=== PATIENT | female | born 1990 | race Caucasian/White ===

== ENCOUNTER 2023-07-14 16:45 | Emergency (ER) | payer OTHER, SELFPAY ==
[2023-07-14 16:58] VITALS: BP 94/58; PULSE 84; RESP 16; TEMP 37.2; O2SAT 100; BMI 22.5
[2023-07-14 17:15] LABS: Bilirubin Urine SMALL (NEGATIVE); Blood Urine LARGE (NEGATIVE); Color Urine YELLOW (YELLOW); Glucose Urine UA NEGATIVE (NEGATIVE); Ketones Urine TRACE mg/dL (NEGATIVE); Leukocyte Esterase Urine SMALL (NEGATIVE); Nitrite Urine NEGATIVE (NEGATIVE); Protein Urine >=300 mg/dL (NEG/TRACE); Specific Gravity Urine >=1.030 (1.005-1.025)
[2023-07-14 17:17] LABS: Clarity Urine SLIGHTLY CLOUDY (CLEAR); Urine Microscopic Indicated YES
--- NOTE | 2023-07-14 17:20 | ED_ITS ---
HPI - Female Genitourinary General Chief complaint: Urogenital-Female Stated complaint: Vaginal Bleed Time Seen by Provider: 07/14/23 16:54 Source: patient Mode of arrival: walk-in Limitations: no limitations History of Present Illness HPI Narrative: patient is a 33-year-old female who presents to the emergency department with her significant other for the evaluation of vaginal pain that began yesterday. She reports blood with wiping after urination. She states she has urinary urgency but has not had any specific dysuria or abdominal pain. She denies any recent rough intercourse or use of toys that may have injured her. She has had no fevers or vomiting. She has had a previous hysterectomy and has not noted any vaginal discharge or lesions of the vaginal area. Related Data Home Medications Medication Instructions Recorded Confirmed buspirone 15 mg tablet 15 mg PO BID 07/14/23 07/14/23 escitalopram oxalate 5 mg tablet 5 mg PO DAILY 07/14/23 07/14/23 estradiol 0.5 mg tablet 0.5 mg PO DAILY 07/14/23 07/14/23 multivitamin 1 tab PO DAILY 07/14/23 07/14/23 omeprazole 20 mg capsule,delayed 20 mg PO DAILY 07/14/23 07/14/23 release Previous Rx's Medication Instructions Recorded cephalexin 500 mg capsule 500 mg PO Q8H 7 days #21 caps 07/14/23 ondansetron 4 mg disintegrating 4 mg PO Q6H PRN nausea and 07/14/23 tablet vomiting #12 tabs phenazopyridine 200 mg tablet 200 mg PO Q8H 2 days #6 tabs 07/14/23 (Pyridium) Allergies Allergy/AdvReac Type Severity Reaction Status Date / Time fentanyl AdvReac Severe Verified 07/14/23 16:55 hydromorphone [From Dilaudid] AdvReac Severe Verified 07/14/23 16:55 naproxen AdvReac Severe Verified 07/14/23 16:55 NSAIDS (Non-Steroidal AdvReac Severe gastric Verified 07/14/23 16:55 Anti-Inflamma ulcers Review of Systems ROS Constitutional Denies: fever or chills Ears, nose, mouth, and throat Denies: throat pain Respiratory Denies: shortness of breath Gastrointestinal Denies: abdominal pain, nausea or vomiting Genitourinary Reports: urinary urgency and vaginal bleeding Musculoskeletal Denies: back pain Integumentary/Breast Denies: rash PFSH [facility] Surgical History (Updated 07/14/23 @ 17:04 by Asa Cain) Social History Smoking status: Never smoker Exam Narrative Exam Narrative: Gen.: Awake, alert, in no distress Head: Normocephalic, atraumatic ENT: Moist mucous membranes Respiratory: No respiratory distress, lungs clear bilaterally Cardio: Regular rate and rhythm Gastrointestinal: Abdomen is soft, nondistended and nontender to palpation; vaginal exam with no swelling of the labia, no external lesions noted and no vaginal discharge noted. Patient was examined with Kathy Benitez RN at bedside throughout the duration of the exam. no adnexal tenderness Extremities: Moves extremities equally Psych: Normal mood and affect Neuro: No focal neuro deficit Skin: Warm, dry, intact Constitutional Vital Signs, click to edit/add: Last Vital Signs Temp 99 F 07/14/23 16:58 Pulse 84 07/14/23 16:58 Resp 16 07/14/23 16:58 BP 94/58 07/14/23 16:58 Pulse Ox 100 07/14/23 16:58 O2 Del Method Room Air 07/14/23 16:58 Course Vital Signs Vital signs: Vital Signs Temperature 99 F 07/14/23 16:58 Pulse Rate 84 07/14/23 16:58 Respiratory Rate 16 07/14/23 16:58 Blood Pressure 94/58 07/14/23 16:58 Pulse Oximetry 100 07/14/23 16:58 Oxygen Delivery Method Room Air 07/14/23 16:58 Temperature 99 F 07/14/23 16:58 Pulse Rate 84 07/14/23 16:58 Respiratory Rate 16 07/14/23 16:58 Blood Pressure 94/58 07/14/23 16:58 Pulse Oximetry 100 07/14/23 16:58 Oxygen Delivery Method Room Air 07/14/23 16:58 MDM - Female Genitourinary MDM Narrative Medical decision making narrative: vaginal exam is unremarkable, urine specimen shows urinary tract infection as expected. Patient will be started on Keflex, Pyridium, Zofran. Follow-up PCP and return to the Emergency Room if symptoms change or worsen. Medical Records Attestation: I reviewed the patient's medical records. Lab Data Attestation: I reviewed the patient's lab results. Labs: Lab Results 07/14/23 Range/Units 17:05 Urine Color Yellow (YELLOW) Urine Clarity Slightly cloudy A (CLEAR) Urine pH 6.0 (5.0-9.0) Ur Specific [place] >=1.030 A (1.005-1.025) Urine Protein >=300 A (NEG/TRACE) mg/dL Urine Glucose (UA) Negative (NEGATIVE) mg/dL Urine Ketones Trace A (NEGATIVE) mg/dL Urine Occult Blood Large A (NEGATIVE) Urine Nitrite Negative (NEGATIVE) Urine Bilirubin Small A (NEGATIVE) Urine Urobilinogen 4.0 A (0.2-1.0) EU/dL Ur Leukocyte Esterase Small A (NEGATIVE) Urine RBC 2-5 A (0-2) #/HPF Urine WBC 75-100 A (NONE SEEN) #/HPF Ur Squamous Epith Cells None seen (NONE/RARE) #/LPF Urine Crystals None seen (None Seen) #/HPF Urine Bacteria Small A (NONE SEEN) #/HPF Urine Casts None seen (NONE SEEN) #/LPF Urine Mucus None seen (NONE SEEN) Ur Culture Indicated? Yes Discharge Plan Discharge Chief Complaint: Urogenital-Female Clinical Impression: Urinary tract infection Patient Disposition: Home, Self-Care Time of Disposition Decision: 17:44 Condition: Good Prescriptions / Home Meds: New cephalexin 500 mg capsule 500 mg PO Q8H 7 Days Qty: 21 0RF phenazopyridine [Pyridium] 200 mg tablet 200 mg PO Q8H 2 Days Qty: 6 0RF ondansetron 4 mg tablet,disintegrating 4 mg PO Q6H PRN (Reason: nausea and vomiting) Qty: 12 0RF No Action escitalopram oxalate 5 mg tablet 5 mg PO DAILY estradiol 0.5 mg tablet 0.5 mg PO DAILY multivitamin Tablet 1 tab PO DAILY omeprazole 20 mg capsule,delayed release(DR/EC) 20 mg PO DAILY buspirone 15 mg tablet 15 mg PO BID Instructions: Urinary Tract Infection in Women (ED) Stand Alone Forms: Portal Instructions Referrals: [facility] [Primary Care Provider] - 1 week
[2023-07-14 17:21] LABS: Bacteria Urine SMALL #/HPF (NONE SEEN); Cast Seen? NONE SEEN #/LPF (NONE SEEN); Crystals Seen? None Seen #/HPF (None Seen); Mucus Urine NONE SEEN (NONE SEEN); Squamous Epithelial Cell Urine NONE SEEN #/LPF (NONE/RARE); Urine Culture Indicated YES; WBC Urine 75-100 #/HPF (NONE SEEN)
--- NOTE | 2023-07-14 17:21 | PC.NURSE ---
ELLIE Chavez assisted physician physical therapist assistant with vaginal exam. no leisons, swelling, or abnormalities seen. normal exam, no need for cultures per physician physical therapist assistant.
== END 2023-07-14 18:03 | disposition home or self-care (01) ==
PROVIDERS: Physician Assistant; Emergency Provider Emergency Medicine
DX: N39.0 Urinary tract infection, site not specified (principal); Z90.710 Acquired absence of both cervix and uterus; Z79.899 Other long term (current) drug therapy
CPT/HCPCS: 81001; 87086; 87150; 87186; 99283

== ENCOUNTER 2024-03-02 21:14 | Emergency (ER) | payer OTHER, SELFPAY ==
[2024-03-02 21:46] VITALS: BP 113/79; PULSE 79; TEMP 36.9; O2SAT 100; BMI 22.6
--- NOTE | 2024-03-02 22:30 | ED.SKABFB1 ---
HPI - Skin/Abscess/Foreign Bdy General Chief complaint: Skin/Abscess/Foreign Body Stated complaint: LUMP Time Seen by Provider: 03/02/24 22:26 Source: patient and family Mode of arrival: walk-in History of Present Illness HPI narrative: This 33-year-old female who is status post hysterectomy presents for evaluation of a tender lump in her left axilla. She states she noticed it yesterday. She has not is any warm compresses. She has been taking Tylenol for pain. She has not had a fever. She has not noticed any breast lumps. She does shave her armpits. She has been using Tylenol for pain. Her mother states that she thinks she has an infection because she has been very tired. She denies the possibility of because she has had a hysterectomy. No additional injuries or complaints. Related Data Home Medications ?Medication ?Instructions ?Recorded ?Confirmed buspirone 15 mg tablet 15 mg PO BID 07/14/23 07/14/23 escitalopram oxalate 5 mg tablet 5 mg PO DAILY 07/14/23 07/14/23 estradiol 0.5 mg tablet 0.5 mg PO DAILY 07/14/23 07/14/23 multivitamin 1 tab PO DAILY 07/14/23 07/14/23 omeprazole 20 mg capsule,delayed 20 mg PO DAILY 07/14/23 07/14/23 release Previous Rx's ?Medication ?Instructions ?Recorded cephalexin 500 mg capsule 500 mg PO Q8H 7 days #21 caps 07/14/23 ondansetron 4 mg disintegrating 4 mg PO Q6H PRN nausea and 07/14/23 tablet vomiting #12 tabs phenazopyridine 200 mg tablet 200 mg PO Q8H 2 days #6 tabs 07/14/23 (Pyridium) Allergies Allergy/AdvReac Type Severity Reaction Status Date / Time fentanyl AdvReac Severe Verified 07/14/23 16:55 hydromorphone [From Dilaudid] AdvReac Severe Verified 07/14/23 16:55 naproxen AdvReac Severe Verified 07/14/23 16:55 NSAIDS (Non-Steroidal AdvReac Severe gastric Verified 07/14/23 16:55 Anti-Inflamma ulcers Review of Systems ROS Status of ROS 10 or more systems reviewed and unremarkable except as noted in history and below [facility] Surgical History (Updated 07/14/23 @ 17:04 by Asa Cain) Hx of hysterectomy ?Z90.710 - Acquired absence of both cervix and uterus (ICD-10) Social History Smoking status: Never smoker Exam Narrative Exam Narrative: Nurses note and vital signs reviewed and patient is not hypoxic. General: Thin Nontoxic female resting comfortably on the stretcher, no respiratory distress, she is not lethargic Skin: Warm, dry, no pallor noted. There is no rash noted. Head: Normocephalic, atraumatic Eye: Normal conjunctiva, no drainage, EOMI. PERRL Cardiovascular: Regular Rate and Rhythm Respiratory: Patient is in no distress, no accessory muscle use, lungs are clear to auscultation, no wheezing, rales or rhonchi Back: non-tender, no CVA tenderness bilaterally to percussion. GI: Normal bowel sounds, no tenderness to palpation, no masses appreciated. No rebound, guarding, or rigidity noted. Musculoskeletal: There Is a barely palpable less than 0.5 cm tender nodule in the left axilla. There is no local cellulitis or drainage noted. Breast exam was negative for any acute findings. Neurological: A&O x4, normal speech Psychiatric: Cooperative Constitutional Vital Signs, click to edit/add: Last Vital Signs Temp 98.4 F 03/02/24 21:46 Pulse 79 03/02/24 21:46 Resp 18 03/02/24 21:46 BP 113/79 03/02/24 21:46 Pulse Ox 100 03/02/24 21:46 O2 Del Method Room Air 03/02/24 21:46 Course Vital Signs Vital signs: Vital Signs Temperature 98.4 F 03/02/24 21:46 Pulse Rate 79 03/02/24 21:46 Respiratory Rate 18 03/02/24 21:46 Blood Pressure 113/79 03/02/24 21:46 Pulse Oximetry 100 03/02/24 21:46 Oxygen Delivery Method Room Air 03/02/24 21:46 Temperature 98.4 F 03/02/24 21:46 Pulse Rate 79 03/02/24 21:46 Respiratory Rate 18 03/02/24 21:46 Blood Pressure 113/79 03/02/24 21:46 Pulse Oximetry 100 03/02/24 21:46 Oxygen Delivery Method Room Air 03/02/24 21:46 MDM - Skin/Abscess/Foreign Bdy MDM Narrative Medical decision making narrative: This 33-year-old female presents for evaluation of a tender lump in her left axilla that she noticed yesterday. She has been taking Tylenol for pain. Her mother is concerned that she has an infection because she has been more tired and had less energy than usual. She has a barely palpable mildly tender nodule in the left axilla. A brief breast exam was also performed that was negative for any acute findings. I explained to her this is likely either a small inflamed hair follicle or lymph node. The mother request that she have antibiotics because of her fatigue. She was medicated with a dose of Keflex and will be discharged home with Keflex and recommendation for warm compresses and Tylenol for pain. The patient states she cannot take NSAIDs. I do not think that stronger pain medications are indicated. Discharge Plan Discharge Stand Alone Forms: Portal Instructions Chief Complaint: Skin/Abscess/Foreign Body Clinical Impression: Folliculitis, Lymphadenopathy Patient Disposition: Home, Self-Care Time of Disposition Decision: 22:42 Condition: Good Prescriptions / Home Meds: No Action escitalopram oxalate 5 mg tablet 5 mg PO DAILY estradiol 0.5 mg tablet 0.5 mg PO DAILY multivitamin Tablet 1 tab PO DAILY omeprazole 20 mg capsule,delayed release(DR/EC) 20 mg PO DAILY buspirone 15 mg tablet 15 mg PO BID cephalexin 500 mg capsule 500 mg PO Q8H 7 Days Qty: 21 0RF phenazopyridine [Pyridium] 200 mg tablet 200 mg PO Q8H 2 Days Qty: 6 0RF ondansetron 4 mg tablet,disintegrating 4 mg PO Q6H PRN (Reason: nausea and vomiting) Qty: 12 0RF Print Language: Greek Instructions: Lymphadenopathy (ED), Folliculitis (ED) Additional Instructions: Use tylenol for pain and apply warm compresses to the left axilla 3-4 times daily until symptoms resolve. Use antibiotics as directed until gone. Referrals: [facility] [Primary Care Provider] - 1 week
--- NOTE | 2024-03-03 09:52 | PC.NURSE ---
[id number]- Called pt's phone and left message. She left Prescription at the ER and did she want it called in to pharmacy or pick up operator from [facility]?
== END 2024-03-02 22:55 | disposition home or self-care (01) ==
PROVIDERS: Emergency Provider Emergency Medicine
DX: L73.9 Follicular disorder, unspecified (principal); R59.0 Localized enlarged lymph nodes; Z90.710 Acquired absence of both cervix and uterus; Z79.899 Other long term (current) drug therapy
CPT/HCPCS: 99283

== ENCOUNTER 2024-03-08 10:47 | Outpatient (OUT) | payer OTHER, SELFPAY ==
--- OUTSIDE RECORDS SUMMARY | 2024-03-08 11:09 | XMS_ITS | CCD ---
Author Organization [facility] Care Team Providers Care Metaphysicist Name Role Phone [facility] Primary Care Unavailable RANDOLPH ., DR RAPP Attending Unavailable RANDOLPH ., DR RAPP Consulting Unavailable RANDOLPH ., DR RAPP Admitting Unavailable Dean Grigsby Attending Unavailab le Dean Grigsby Admitting Unavailab le NON STAFF Primary Care Unavailable ANGLIM, GABBY A Primary Care Unavailable LAKSHMI JAMES Attending Unavailable LAKSHMI JAMES Referring Unavailable ANGLIM, GABBY Rosa Primary Care Unavailable SAIRALIM GABBY A Primary Care Unavailable JOSH RIVAS Attending Unavailable ORLANDO JAIMES Referring Unavailable NO PCP, NO PCP Primary Care Unavailable ANGLIM, GABBY A Primary Care Unavailable Allergies Allergy Classification Reported Allergen(s) Allergy Type Date of Onset Reaction(s) Facility (2 sources) fentaNYL; Translations: [FENTANYL] Drug Allergy 1 [facility] Repository (1 source) HYDROmorphone Drug Allergy 0 [facility] Repository (2 sources) Naproxen; Translations: [NAPROXEN] Drug Allergy 5 [facility] Repository (1 source) HYDROmorphone; Translations: [HYDROMORPHONE] Drug Allergy 1 [facility] Repository (1 source) NSAIDs; Translations: [NSAIDS (NON-STEROIDAL ANTI-INFLAMMATORY DRUG)] Propensity to adverse reactions to drug (disorder) 2 [facility] Repository Problems Active Problems Problem Classification Problem Date Documented Da te Episodic/Chronic Noninfectious gastroenteritis (1 source) Noninfective gastroenteritis and colitis, unspecified; Translations: [Noninfective gastroenteritis and colitis, unspecified] Onset: 11-20-2023 Episodic Other endocrine disorders (1 source) Hypoglycemia, unspecified; Translations: [Hypoglycemia, unspecified] Onset: 02-09-2024 Chronic Other gastrointestinal disorders (1 source) Bariatric surgery status; Translations: [Bariatric surgery status] Onset: 02-12-2024 Episodic Other gastrointestinal disorders (1 source) Diarrhea Onset: 11-20-2023 Episodic Spondylosis; intervertebral disc disorders; other back problems (1 source) Sacrococcygeal disorders, not elsewhere classified; Translations: [Sacrococcygeal disorders, not elsewhere classified] Onset: 01-28-2024 Episodic Unclassified (1 source) Low Blood Sugar - Symptomatic Onset: 02-09-2024 Unclassified (1 source) Coccyx Injury Onset: 01-28-2024 Unclassified (1 source) FALL - INJURY TO TAILBONE Onset: 01-28-2024 Past or Other Problems Problem Classification Problem Date Documented Date Episodic/Chronic Immunizations and screening for infectious disease (1 source) Encounter for screening for human papillomavirus (HPV); Translations: [ENC SCREENING HUMAN PAPILLOMAVIRUS] Onset: 10-24-2022 Episodic Other screening for suspected conditions (not mental disorders or infectious disease) (4 sources) Encounter for screening for malignant neoplasm of cervix; Translations: [ENC SCREENING MALIG NEOPLASM CERV] Onset: 10-17-2022 Episodic Results Test Name Value Interpretation Reference Range Facil ity C peptide [Mass/Vol]on 02-11 C PEPTIDE 1.8 ng/mL Normal 1.1-4.4 [facility] Comment on above: Result Comment: NOTE Test Performed By: [facility] [employer] Volume [employer] App [address] [place] [address] Sheet Music Salesperson: Jose Eduardo Daigle III, M.D. [facility] #[id number] Performed By: #### 2 106-3 #### [facility] ([id number]) [address] [place] [address], [place] [address] Corticotropin (P) [Mass/Vol] on 02-12-2024 ACTH 9.9 pg/mL Normal 7.2-63.3 [facility] Comment on above: Result Comment: NOTE ACTH Reference Range: 7-10 am: 7.2 - 63.3 pg/mL Test Performed By: [facility] [employer] [address] [place] [address] Sheet Music Salesperson: Ravinder Crooks III #[id number] Performed By: #### 2 106-3 #### [facility] ([id number]) [address] [place] [address]1969 Cortisol [Mass/Vol]on 2023 CORTISOL 4.6 ug/dL Normal [facility] Comment on above: Result Comment: Due to the diurnal variation of cortisol levels in normal subjects, all cortisol measurements should be referenced to the time of day of sample collection. AM Cortisol Age>=6 6.7-22.4 ug/dL PM Cortisol Age>=6 <10 ug/dL Performed By: #### 2 106-3 #### [facility] ([id number]) [address] [place] [address]16 Insulin Qnon 02-12-2024 INSULIN 3.15 uIU/mL Normal 1.00-23.00 [facility] Comment on above: Result Comment: Ref. range is for FASTING NON-DIABETIC POPULATION. Performed By: #### 2 106-3 #### [facility] ([id number]) [address] [place] [address] 29374 LIVER PANELon 02-12-2024 Albumin [Mass/Vol] 5.1 g/dL Normal 3.2-5.3 [facility] Comment on above: Performed By: #### L IVR, RENAL #### [facility] ([id number]) [address] [place] [address], [address] [place] [address] #### 1985-9, 15679-2 #### [facility] ([id number]) [address] [place] [address] Performed By: #### 2 106-3 #### [facility] ([id number]) [address] [place] [address] [place] [address] ALP [Catalytic activity/Vol] 91 U/L Normal 39-130 [facility] Comment on above: Performed By: #### L IVR, RENAL #### [facility] ([id number]) 0 [facility], [address] [address] #### 1985-9, 94579-9 #### [facility] ([id number]) [address] [place] [address] 29854 ALT [Catalytic activity/Vol] 13 U/L Normal 0-31 [facility] Comment on above: Performed By: #### L IVR, RENAL #### [facility] ([id number]) 0 [facility], [address] [address] #### 1985-9, 65483-7 #### [facility] ([id number]) [address] [place] [address] 50938 AST [Catalytic activity/Vol] 18 U/L Normal 0-41 [facility] Comment on above: Performed By: #### L IVR, RENAL #### [facility] ([id number]) 0 [facility], [address] [address] #### 1985-9, 06309-5 #### [facility] ([id number]) [address] [place] [address] 63203 Bilirubin [Mass/Vol] 0.8 mg/dL Normal 0.3-1.2 [facility] Comment on above: Performed By: #### L IVR, RENAL #### [facility] ([id number]) 0 [facility], [address] [address] #### 1985-9, 68733-6 #### [facility] ([id number]) [address] [place] [address] Bilirubin.direct [Mass/Vol] 0.1 mg/dL Normal 0.0-0.4 [facility] Comment on above: Performed By: #### L IVR, RENAL #### [facility] ([id number]) [address] [facility], [address] [place] [address] #### 1985-9, 79922-5 #### [facility] ([id number]) [address] [place] [address] 02878 Protein [Mass/Vol] 7.7 g/dL Normal 6.0-8.0 [facility] Comment on above: Performed By: #### L IVR, RENAL #### [facility] ([id number]) [address] [facility], [address] [place] [address] #### 1985-9, 28571-9 #### [facility] ([id number]) [address] [place] [address]65 Proinsulin post 12 Hr fast [ Moles/Vol]on 02-12-2024 PROINSULIN,INTACT <2.0 Normal <=7.2 [facility] Comment on above: Result Comment: NOTE Performed By: [facility] [address] [place] [address] Sheet Music Salesperson: Sky Chapin MD, PhD CLIA Number: [id number] Performed By: #### 2 106-3 #### [facility] ([id number]) [address] [place] [address] RENAL PANELon 02-12-2024 Anion gap [Moles/Vol] 10 mmol/L Normal 5-15 [facility] Comment on above: Performed By: #### 2 106-3 #### [facility] ([id number]) [address] [place] [address]56 Calcium [Mass/Vol] 9.7 mg/dL Normal 8.5-10.5 [facility] Comment on above: Performed By: #### 2 106-3 #### [facility] ([id number]) [address] [place] [address]30 Chloride [Moles/Vol] 104 mmol/L Normal 98-109 [facility] Comment on above: Performed By: #### 2 106-3 #### [facility] ([id number]) [address] [place] [address] 89840 CO2 [Moles/Vol] 27 mmol/L Normal 22-32 [facility] Comment on above: Performed By: #### 2 106-3 #### [facility] ([id number]) [address] [place] [address] 58432 Creatinine [Mass/Vol] 0.74 mg/dL Normal 0.40-1.00 [facility] Comment on above: Result Comment: METH OD TRACEABLE TO IDMS STANDARD Performed By: #### 2 106-3 #### [facility] ([id number]) [address] [place] [address] [place] [address] eGFR (CKD-EPI) NON-RACE DEPENDENT >90 Normal >59 [facility] Comment on above: Result Comment: Reported eGFR is based on the CKD-EPI 2020 equation that does not use a race coefficient. Performed By: #### 2 106-3 #### [facility] ([id number]) [address] [place] [address] 72756 Glucose [Mass/Vol] 75 mg/dL Normal 65-99 [facility] Comment on above: Performed By: #### 2 106-3 #### [facility] ([id number]) [address] [place] [address] 68807 Phosphate [Mass/Vol] 4.1 mg/dL Normal 2.4-4.9 [facility] Comment on above: Performed By: #### 2 106-3 #### [facility] ([id number]) [address] [place] [address] 35033 Potassium [Moles/Vol] 3.9 mmol/L Normal 3.5-5.0 [facility] Comment on above: Performed By: #### 2 106-3 #### [facility] ([id number]) [address] [place] [address] 96785 Sodium [Moles/Vol] 141 mmol/L Normal 134-146 [facility] Comment on above: Performed By: #### 2 106-3 #### [facility] ([id number]) [address] [place] [address] 28225 Urea nitrogen [Mass/Vol] 12 mg/dL Normal 5-23 [facility] Comment on above: Performed By: #### 2 106-3 #### [facility] ([id number]) [address] [place] [address] 66396 CBC AND AUTO DIFFon 02-09-20 24 ABSOLUTE BASOPHIL 0.0 X10E9/L Normal 0.0-0.2 [facility] Comment on above: Performed By: #### C BCA, CMP #### [facility] ([id number]) [address] [place] [address] 99989 ABSOLUTE NEUTROPHIL 2.4 X10E9/L Normal 1.5-6.6 [facility] Comment on above: Performed By: #### C BCA, CMP #### [facility] ([id number]) [address] [place] [address] 51485 Basophils/100 WBC (Bld) 0.8 % Normal [facility] Comment on above: Performed By: #### C BCA, CMP #### [facility] ([id number]) [address] [place] [address] 62691 Eosinophils (Bld) [#/Vol] 0.1 10*3/uL Normal 0.0-0.4 [facility] Comment on above: Performed By: #### C BCA, CMP #### [facility] ([id number]) [address] [place] [address] 07735 Eosinophils/100 WBC (Bld) 2.3 % Normal [facility] Comment on above: Performed By: #### C NIKKIE, CMP #### [facility] ([id number]) [address] [place] [address] 00782 Erythrocyte distribution width (RBC) [Ratio] 13.2 % Normal 11.5-15.0 [facility] Comment on above: Performed By: #### C BCA, CMP #### [facility] ([id number]) [address] [place] [address] 97214 Hematocrit (Bld) [Volume fraction] 35.7 % Normal 35-47 [facility] Comment on above: Performed By: #### C NIKKIE, CMP #### [facility] ([id number]) [address] [place] [address] 83517 Hemoglobin (Bld) [Mass/Vol] 12.6 g/dL Normal 11.7-15.5 [facility] Comment on above: Performed By: #### C NIKKIE, CMP #### [facility] ([id number]) [address] [place] [address] 28061 Lymphocytes (Bld) [#/Vol] 1.9 10*3/uL Normal 1.0-3.5 [facility] Comment on above: Performed By: #### C BCA, CMP #### [facility] ([id number]) [address] [place] [address] 66769 Lymphocytes/100 WBC (Bld) 38.7 % Normal [facility] Comment on above: Performed By: #### C BCA, CMP #### [facility] ([id number]) [address] [place] [address] 48609 MCH (RBC) [Entitic mass] 31.2 pg Normal 27-34 [facility] Comment on above: Performed By: #### C BCA, CMP #### [facility] ([id number]) [address] [place] [address] 40791 MCHC (RBC) [Mass/Vol] 35.3 g/dL Normal 32-36 [facility] Comment on above: Performed By: #### C BCA, CMP #### [facility] ([id number]) [address] [place] [address] 34789 MCV (RBC) [Entitic vol] 89 fL Normal 80-100 [facility] Comment on above: Performed By: #### C BCA, CMP #### [facility] ([id number]) [address] [place] [address] 51500 Monocytes (Bld) [#/Vol] 0.4 10*3/uL Normal 0-0.9 [facility] Comment on above: Performed By: #### C NIKKIE, CMP #### [facility] ([id number]) [address] [place] [address] 68729 Monocytes/100 WBC (Bld) 7.5 % Normal [facility] Comment on above: Performed By: #### C NIKKIE, CMP #### [facility] ([id number]) [address] [place] [address] 77290 Neutrophils/100 WBC (Bld) 50.7 % Normal [facility] Comment on above: Performed By: #### C NIKKIE, CMP #### [facility] ([id number]) [address] [place] [address] 39810 Platelet mean volume (Bld) [Entitic vol] 8.2 fL Normal 7-12 [facility] Comment on above: Performed By: #### C BCA, CMP #### [facility] ([id number]) [address] [place] [address] 61983 Platelets (Bld) [#/Vol] 210 10*3/uL Normal 150-450 [facility] Comment on above: Performed By: #### C BCA, CMP #### [facility] ([id number]) [address] [place] [address] 09706 RBC COUNT 4.04 X10E12/L Normal 3.80-5.20 [facility] Comment on above: Performed By: #### C BCA, CMP #### [facility] ([id number]) [address] [place] [address] 80962 WBC (Bld) [#/Vol] 4.8 10*3/uL Normal 4.0-11.0 [facility] Comment on above: Performed By: #### C BCA, CMP #### [facility] ([id number]) [address] [place] [address] 03415 COMPREHENSIVE METABOLIC PANE Kameron 02-09-2024 Albumin [Mass/Vol] 4.4 g/dL Normal 3.2-5.3 [facility] Comment on above: Performed By: #### C BCA, CMP #### [facility] ([id number]) [address] [place] [address] 81359 ALP [Catalytic activity/Vol] 78 U/L Normal 39-130 [facility] Comment on above: Performed By: #### C BCA, CMP #### [facility] ([id number]) [address] [place] [address] 24261 ALT [Catalytic activity/Vol] 14 U/L Normal 0-31 [facility] Comment on above: Performed By: #### C BCA, CMP #### [facility] ([id number]) [address] [place] [address] 71209 Anion gap [Moles/Vol] 3 mmol/L Low 5-15 [facility] Comment on above: Performed By: #### C BCA, CMP #### [facility] ([id number]) [address] [place] [address] 86786 AST [Catalytic activity/Vol] 17 U/L Normal 0-41 [facility] Comment on above: Performed By: #### C BCA, CMP #### [facility] ([id number]) [address] [place] [address] 74896 Bilirubin [Mass/Vol] 0.6 mg/dL Normal 0.3-1.2 [facility] Comment on above: Performed By: #### C BCA, CMP #### [facility] ([id number]) [address] [place] [address] 48959 Calcium [Mass/Vol] 8.6 mg/dL Normal 8.5-10.5 [facility] Comment on above: Performed By: #### C BCA, CMP #### [facility] ([id number]) [address] [place] [address] 25098 Chloride [Moles/Vol] 105 mmol/L Normal 98-109 [facility] Comment on above: Performed By: #### C BCA, CMP #### [facility] ([id number]) [address] [place] [address] 37059 CO2 [Moles/Vol] 25 mmol/L Normal 22-32 [facility] Comment on above: Performed By: #### C BCA, CMP #### [facility] ([id number]) [address] [place] [address] 51401 Creatinine [Mass/Vol] 0.82 mg/dL Normal 0.40-1.00 [facility] Comment on above: Result Comment: METH OD TRACEABLE TO IDMS STANDARD Performed By: #### C BCA, CMP #### [facility] ([id number]) [address] [place] [address] 66702 eGFR (CKD-EPI) NON-RACE DEPENDENT >90 Normal >59 [facility] Comment on above: Result Comment: Reported eGFR is based on the CKD-EPI 2020 equation that does not use a race coefficient. Performed By: #### C BCA, CMP #### [facility] ([id number]) [address] [place] [address] 96742 Glucose [Mass/Vol] 87 mg/dL Normal 65-99 [facility] Comment on above: Performed By: #### C BCA, CMP #### [facility] ([id number]) [address] [place] [address] 87808 Potassium [Moles/Vol] 3.9 mmol/L Normal 3.5-5.0 [facility] Comment on above: Performed By: #### C BCA, CMP #### [facility] ([id number]) [address] [place] [address] 53727 Protein [Mass/Vol] 7.2 g/dL Normal 6.0-8.0 [facility] Comment on above: Performed By: #### C BCA, CMP #### [facility] ([id number]) [address] [place] [address] 83128 Sodium [Moles/Vol] 133 mmol/L Low 134-146 [facility] Comment on above: Performed By: #### C BCA, CMP #### [facility] ([id number]) [address] [place] [address] 69580 Urea nitrogen [Mass/Vol] 11 mg/dL Normal 5-23 [facility] Comment on above: Performed By: #### C BCA, CMP #### [facility] ([id number]) [address] [place] [address] 44529 Glucose Glucometer (BldC) [M ass/Vol]on 02-09-2024 Glucose [Mass/Vol] 106 mg/dL High 65-99 [facility] Glucose [Mass/Vol] 65 mg/dL Normal 65-99 [facility] URN MACROSCOPIC NURon 2023 BILIRUBIN INDER Negative Normal NEG [facility] Comment on above: Performed By: #### N UM #### [facility] ([id number]) [address] [place], [place] [address], [place] [address] BLOOD/HGB INDER Negative Normal NEG [facility] Comment on above: Performed By: #### N UM #### [facility] ([id number]) [address] [place] [address] 81280 GLUCOSE INDER Negative Normal NEG [facility] Comment on above: Performed By: #### N UM #### [facility] ([id number]) [address] [place] [address] [place] [address] KETONES INDER Negative Normal NEG [facility] Comment on above: Performed By: #### N UM #### [facility] ([id number]) [address] [place] [address] 11291 LEUKOCYTE ESTERASE INDER Negative Normal NEG [facility] Comment on above: Performed By: #### N UM #### [facility] ([id number]) [address] [place] [address] [place] [address] NITRITE INDER Negative Normal NEG [facility] Comment on above: Performed By: #### N UM #### [facility] ([id number]) [address] [place] [address] 82209 PH INDER 7.0 Normal 5.0-8.5 [facility] Comment on above: Performed By: #### N UM #### [facility] ([id number]) [address] [place] [address] [place] [address] PROTEIN INDER Negative Normal NEG [facility] Comment on above: Performed By: #### N UM #### [facility] ([id number]) [address] [place] [address] 44809 SPECIFIC GRAVITY INDER 1.010 Normal 1.003-1.035 [facility] Comment on above: Performed By: #### N UM #### [facility] ([id number]) [address] [place] [address] 30961 UROBILINOGEN INDER 0.2 eu/dL Normal <1.1 [facility] Comment on above: Performed By: #### N UM #### [facility] ([id number]) [address] [place] [address] 29470 XR SACRUM COCCYX MIN 2 VWSon 01-28-2024 XR SACRUM COCCYX MIN 2 VWS XR SACRUM COCCYX MIN 2 VWS XR SACRUM COCCYX MIN 2 VWS HISTORY: Coccygeal injury. COMPARISON: CT 08/22/2022. IMPRESSION: 1. No acute sacrococcygeal fracture, CT may be considered if clinically warranted. 2. Unchanged angulation of the sacrococcygeal junction, chronic in nature. Finalized by Ayden Lang MD on 01/28/2024 8:46 PM Normal [facility] HCG ( test) Ql (U)o n 11-20-2023 Beta HCG ( test) Ql (U) Negative Normal NEG [facility] Comment on above: Performed By: #### 2 106-3 #### [facility] ([id number]) [address] [place] [address] 31751 SARS/FLU A+B/RSV by NAAT/Mol ecularon 11-20-2023 SARS/FLU A+B/RSV by NAAT/Molecular FLU A PCR Negative (qualifier value) FLU B PCR Negative (qualifier value) RSV by PCR Negative (qualifier value) SARS CoV 2 Not detected (qualifier value) NOTE The Xpert Xpress SARS-CoV-2/Flu/RSV Plus test is a rapid, multiplexed real-time RT-PCR test intended for the simultaneous qualitative detection and differentiation of SARS-CoV-2, influenza A, influenza B and respiratory syncytial virus (RSV) viral RNA from individuals suspected of respiratory viral infection consistent with COVID-19 by their healthcare provider. This test has not been validated in asymptomatic patients. The Xpert Xpress SARS-CoV-2 test is intended for use by qualified and trained operators who are performing tests using either [employer] or [employer] systems and is limited to laboratories that meet the CLIA requirements to perform high and moderate complexity tests. The Xpert Xpress SARS-CoV-2/Flu/RSV Plus is only for use under the Food and Drug Administration's Emergency Use Authorization. Results are for the simultaneous detection and differentiation of SARS-CoV-2, influenza A, influenza B and RSV nucleic acids in clinical specimens. SARS-CoV-2, influenza A, influenza B and RSV RNA identified by this test are generally detectable in upper respiratory samples during the acute phase of infection. Positive results are indicative of the presence of the identified virus, but do not rule out bacterial infection or co-infection with other pathogens not detected by this test. Clinical correlation with patient history and other diagnostic information is necessary to determine patient infection status. The agent detected may not be the definite cause of disease. Negative results do not preclude SARS-CoV-2, influenza A, influenza B and RSV infection and should not be used as the sole basis for treatment or other patient management decisions. Negative results must be combined with clinical observations, patient history and epidemiological information. An Invalid result may occur with specimen-associated inhibition unable to be resolved with specimen repeat. Fact Sheet for Healthcare Providers: https://www.fda.gov/me yusuf/641078/download Fact Sheet for Patients: https://www.fda.gov/me yusuf/773762/download Normal [facility] [place] [facility] Comment on above: Performed By: #### C OVFLR #### [facility] ([id number]) [address] [place] [address]247 URN MACROSCOPIC NURon 2023 BILIRUBIN INDER Small Abnormal NEG [facility] [place] [facility] Comment on above: Performed By: #### N UM #### [facility] ([id number]) [address] [place] [address] 06028 BLOOD/HGB INDER Trace Abnormal NEG [facility] [place] [facility] Comment on above: Performed By: #### N UM #### [facility] ([id number]) [address] [place] [address] 93546 GLUCOSE INDER Negative Normal NEG [facility] [place] [facility] Comment on above: Performed By: #### N UM #### [facility] ([id number]) [address] [place] [address] 24293 KETONES INDER Negative Normal NEG [facility] [place] [facility] Comment on above: Performed By: #### N UM #### [facility] ([id number]) [address] [place] [address] 04791 LEUKOCYTE ESTERASE INDER Negative Normal NEG [facility] [place] [facility] Comment on above: Performed By: #### N UM #### [facility] ([id number]) [address] [place] [address] NITRITE INDER Negative Normal NEG [facility] [place] [facility] Comment on above: Performed By: #### N UM #### [facility] ([id number]) [address] [place] [address]49 PH INDER 5.5 Normal 5.0-8.5 [facility] [place] [facility] Comment on above: Performed By: #### N UM #### [facility] ([id number]) [address] [place] [address]35 PROTEIN INDER Trace Abnormal NEG [facility] [place] [facility] Comment on above: Performed By: #### N UM #### [facility] ([id number]) [address] [place] [address]333 SPECIFIC GRAVITY INDER >=1.030 Normal 1.003-1.035 [facility] [place] [facility] Comment on above: Performed By: #### N UM #### [facility] ([id number]) [address] [place] [address] 04788 UROBILINOGEN INDER 0.2 eu/dL Normal <1.1 [facility] Comment on above: Performed By: #### N UM #### [facility] ([id number]) [address] [place] [address] 86286 PAP ACOG PANEL 2: 30 to 65on 10-31-2022 . . Normal [facility] Comment on above: Result Comment: Perf ormed at: WB Performed By: #### [id number] #### [facility] [address] [address] [address] Claudia Ramos Age Gdln ACOG Testing 30-65 Normal [facility] Comment on above: Performed By: #### [id number] #### [facility] [address] [place] [address] Dr. Claudia Ramos DIAGNOSIS: Comment Normal [facility] Comment on above: Result Comment: NEGA TIVE FOR INTRAEPITHELIAL LESION OR MALIGNANCY. FUNGAL ORGANISMS MORPHOLOGICALLY CONSISTENT WITH [place]YENNE SPECIES ARE PRESENT. THIS SPECIMEN WAS RESCREENED PART OF OUR SALES CLERK PROGRAM. Performed at: WB Performed By: #### [id number] #### [facility] [address] [place] [address] Dr. Claudia Ramos HPV Aptima Negative Normal Negative [facility] Comment on above: Result Comment: This nucleic acid amplification test detects fourteen high-risk HPV types (16,18,31,33,35,39,45,51,52,56,58,59,66,68) without differentiation. Performed at: =G Performed By: #### [id number] #### [facility] [address] [place] [address] Dr. Claudia Ramos HPV Genotype Reflex Comment Normal [facility] Comment on above: Result Comment: Crit eria not met, HPV Genotype not performed. Performed at: WB Performed By: #### [id number] #### [facility] [address] [address] Dr. Claudia Ramos Methodology: Comment Normal [facility] Comment on above: Result Comment: This liquid based ThinPrep(R) pap test was screened with the use of an image guided system. Performed at: WB Performed By: #### [id number] #### [facility] [address] [address] Dr. Claudia Ramos Note: Comment Normal [facility] Comment on above: Result Comment: The Pap smear is a screening test designed to aid in the detection of premalignant and malignant conditions of the uterine cervix. It is not a diagnostic procedure and should not be used as the sole means of detecting cervical cancer. Both false-positive and false-negative reports do occur. . Performed at: WB Performed By: #### [id number] #### [facility] [address] [address] [address] Claudia Ramos Performed by: Comment Normal [facility] Comment on above: Result Comment: Matthias Sánchez, Metal Melter (ASCP) Performed at: [facility] Performed By: #### [id number] #### [facility] [address] [place], [place] [address] Dr. Claudia Ramos QC reviewed by: Comment Normal [facility] Comment on above: Result Comment: Yaakov Garcia, Metal Melter (ASCP) Performed at: WB Performed By: #### 4 [id number] #### [facility] [address] [address] [address] Claudia Ramos Specimen adequacy: Comment Normal [facility] Comment on above: Result Comment: Sati sfactory for evaluation. No endocervical component is identified. Performed at: WB Performed By: #### [id number] #### [facility] [address] [address] [address] Claudia Ramos Encounters Encounter Date Encounter Type Care Provider Facility Start: 02-12-2024 End: 02-13-2024 ambulatory ORLANDO Carbajal [facility] Start: 02-09-2024 End: 02-09-2024 Emergency department patient visit [facility] Start: 01-28-2024 End: 01-29-2024 Emergency department patient visit [facility] Start: 11-20-2023 End: 11-21-2023 Emergency department patient visit [facility] Start: 04-24-2023 ambulatory Dean Carbajal acility:[facility] Start: 10-17-2022 End: 10-18-2022 ambulatory [facility] Facility: Payers Date Payer Category Payer Private Health Insurance [id number] 2023 Self-pay 1990 Unknown [id number] 2.16.84 [id number] 1991 Unknown [id number] 2.16.8 [id number] 1991 Unknown [id number] 2.16.8 [id number] 1991 Unknown [id number] 2.16.8 [id number] 1991 Unknown [id number] 2.16.8 [id number] 1991 Unknown [id number] 2.16.8 [id number] 1959 Private Health Insurance [id number] 1959 Unknown [id number] Unknown [id number] 2.16.8 [id number] Summary Purpose Family History No Family History Records FoundNo Family History Records FoundNo Family History Records Found Advance Directives No Advanced Directives Records FoundNo Advanced Directives Records FoundNo Advanced Directives Records Found Additional Source Comments INFORMATION SOURCE (unrecogn ized section and content) DATE CREATED AUTHOR 01/25/2023 [facility] DATE CREATED AUTHOR AUTHOR'S ORGANIZ ATION 10/26/2023 [facility] DATE CREATED AUTHOR AUTHOR'S ORGANIZ ATION 02/15/2024 [facility] FOR RECORDS PERTAINING TO PATIENTS WHO ARE OR HAVE BEEN ENROLLED IN A CHEMICAL DEPENDENCY/SUBSTANCEABUSE PROGRAM, SOME INFORMATION MAY BE OMITTED. This clinical summary was aggregated from multiple sources. Caution should be exercised in using it in the provision of clinical care. This summary normalizes information from multiple sources, and as a consequence, information in this document may materially change the coding, format and clinical context of patient data. In addition, data may be omitted in some cases. CLINICAL DECISIONS SHOULD BE BASED ON THE PRIMARY CLINICAL RECORDS. [employer] [facility]. provides no warranty or guarantee of the accuracy or completeness of information in this document.
[2024-03-08 12:24] LABS: Free T3 2.63 pg/mL (2.18-3.98)
[2024-03-08 13:03] LABS: Free T4 1.02 ng/dL (0.76-1.46)
== END 2024-03-08 10:48 | disposition home or self-care (01) ==
PROVIDERS: Visit Provider Obstetrics & Gynecology
DX: N63.20 Unspecified lump in the left breast, unspecified quadrant (principal)
CPT/HCPCS: 36415; 82306; 82607; 82728; 84439; 84443; 84481

== ENCOUNTER 2024-03-16 13:32 | Outpatient (OUT) | payer OTHER, SELFPAY ==
--- OUTSIDE RECORDS SUMMARY | 2024-03-16 13:43 | XMS_ITS | CCD ---
Author Organization [facility] Care Team Providers Care Teller Head Name Role Phone [facility] Primary Care Unavailable RANDOLPH ., DR RAPP Attending Unavailable RANDOLPH ., DR RAPP Consulting Unavailable RANDOLPH ., DR RAPP Admitting Unavailable Dean Grigsby Attending Unavailab le Dean Grigsby Admitting Unavailab le NON STAFF Primary Care Unavailable ANGNERI NAJERAA Rosa Primary Care Unavailable LAKSHMI JAMES Attending Unavailable LAKSHMI JAMES Referring Unavailable ANGLIM GABBY Rosa Primary Care Unavailable ANGLIM GABBY A Primary Care Unavailable JOSH RIVAS Attending Unavailable ORLANDO JAIMES Referring Unavailable NO PCP, NO PCP Primary Care Unavailable NERI GRULLONA Rosa Primary Care Unavailable DIONTE DICKSON Attending Unavailable Allergies Allergy Classification Reported Allergen(s) Allergy Type Date of Onset Reaction(s) Facility (2 sources) fentaNYL; Translations: [FENTANYL] Drug Allergy 1 [facility] Repository (1 source) HYDROmorphone Drug Allergy 0 [facility] Repository (2 sources) Naproxen; Translations: [NAPROXEN] Drug Allergy 5 [facility] Repository (1 source) HYDROmorphone; Translations: [HYDROMORPHONE] Drug [...] 02-11 C PEPTIDE 1.8 ng/mL Normal 1.1-4.4 [facility] Comment on above: Result Comment: NOTE Test Performed By: [facility] [address] [place] [address] Lab Assistant: Ravinder Crooks III #[id number] Performed By: #### 2 106-3 #### [facility] ([id number]) [address] [place] [address] 63117 Corticotropin (P) [Mass/Vol] on 02-12-2024 ACTH 9.9 pg/mL Normal 7.2-63.3 [facility] Comment on above: Result Comment: NOTE ACTH Reference Range: 7-10 am: 7.2 - 63.3 pg/mL Test Performed By: [facility] [address] [address] Lab Assistant: Ravinder Crooks III #[id number] Performed By: #### 2 106-3 #### [facility] ([id number]) [address] [place] [address] 25850 Cortisol [Mass/Vol]on 2023 CORTISOL 4.6 ug/dL Normal [facility] Comment on above: Result Comment: Due to the diurnal variation of cortisol levels in normal subjects, all cortisol measurements should be referenced to the time of day of sample collection. AM Cortisol Age>=6 6.7-22.4 ug/dL PM Cortisol Age>=6 <10 ug/dL Performed By: #### 2 106-3 #### [facility] ([id number]) [address] [place] [address] 09755 Insulin Qnon 02-12-2024 INSULIN 3.15 uIU/mL Normal 1.00-23.00 [facility] Comment on above: Result Comment: Ref. range is for FASTING NON-DIABETIC POPULATION. Performed By: #### 2 106-3 #### [facility] ([id number]) [address] [place] [address] 14240 LIVER PANELon 02-12-2024 Albumin [Mass/Vol] 5.1 g/dL Normal 3.2-5.3 [facility] Comment on above: Performed By: #### L IVR, RENAL #### [facility] ([id number]) [address] [place] [address], [address] [place] [address] #### 1985-9, 96509-5 #### [facility] ([id number]) [address] [place] [address] 64769 Performed By: #### 2 106-3 #### [facility] ([id number]) [address] [place] [address] ALP [Catalytic activity/Vol] 91 U/L Normal 39-130 [facility] Comment on above: Performed By: #### L IVR, RENAL #### [facility] ([id number]) [address], [address] [place] [address] #### 1985-9, 86012-8 #### [facility] ([id number]) [address] [place] [address] 39142 ALT [Catalytic activity/Vol] 13 U/L Normal 0-31 [facility] Comment on above: Performed By: #### L IVR, RENAL #### [facility] ([id number]) [address], [address] [place] [address] #### 1985-9, 12401-6 #### [facility] ([id number]) [address] [place] [address] 15195 AST [Catalytic activity/Vol] 18 U/L Normal 0-41 [facility] Comment on above: Performed By: #### L IVR, RENAL #### [facility] ([id number]) [address], [address] [place] [address] #### 1985-9, 46664-7 #### [facility] ([id number]) [address] [place] [address] 49214 Bilirubin [Mass/Vol] 0.8 mg/dL Normal 0.3-1.2 [facility] Comment on above: Performed By: #### L IVR, RENAL #### [facility] ([id number]) [address], [address] [place] [address] #### 1985-9, 58436-1 #### [facility] ([id number]) [address] [place] [address] 50204 Bilirubin.direct [Mass/Vol] 0.1 mg/dL Normal 0.0-0.4 [facility] Comment on above: Performed By: #### L IVR, RENAL #### [facility] ([id number]) [address] [facility], [address] [place] [address] #### 1985-9, 97857-4 #### [facility] ([id number]) [address] [place] [address] 68681 Protein [Mass/Vol] 7.7 g/dL Normal 6.0-8.0 [facility] Comment on above: Performed By: #### L IVR, RENAL #### [facility] ([id number]) [address] [facility], [address] [place] [address] #### 1985-9, 51536-2 #### [facility] ([id number]) [address] [place] [address] 73917 Proinsulin post 12 Hr fast [ Moles/Vol]on 02-12-2024 PROINSULIN,INTACT <2.0 Normal <=7.2 [facility] Comment on above: Result Comment: NOTE Performed By: [facility] [address] [place] [address] Lab Assistant: Sky Chapin MD, PhD CLIA Number: [id number] Performed By: #### 2 106-3 #### [facility] ([id number]) [address] [place] [address] 93187 RENAL PANELon 02-12-2024 Anion gap [Moles/Vol] 10 mmol/L Normal 5-15 [facility] Comment on above: Performed By: #### 2 106-3 #### [facility] ([id number]) [address] [place] [address] 11458 Calcium [Mass/Vol] 9.7 mg/dL Normal 8.5-10.5 [facility] Comment on above: Performed By: #### 2 106-3 #### [facility] ([id number]) [address] [place] [address] 20740 Chloride [Moles/Vol] 104 mmol/L Normal 98-109 [facility] Comment on above: Performed By: #### 2 106-3 #### [facility] ([id number]) [address] [place] [address] 82953 CO2 [Moles/Vol] 27 mmol/L Normal 22-32 [facility] Comment on above: Performed By: #### 2 106-3 #### [facility] ([id number]) [address] [place] [address] 49504 Creatinine [Mass/Vol] 0.74 mg/dL Normal 0.40-1.00 [facility] Comment on above: Result Comment: METH OD TRACEABLE TO IDMS STANDARD Performed By: #### 2 106-3 #### [facility] ([id number]) [address] [place] [address] [place] [address] eGFR (CKD-EPI) NON-RACE DEPENDENT >90 Normal >59 [facility] Comment on above: Result Comment: Reported eGFR is based on the CKD-EPI 1 equation that does not use a race coefficient. Performed By: #### 2 106-3 #### [facility] ([id number]) [address] [place] [address] 77842 Glucose [Mass/Vol] 75 mg/dL Normal 65-99 [facility] Comment on above: Performed By: #### 2 106-3 #### [facility] ([id number]) [address] [place] [address] 07022 Phosphate [Mass/Vol] 4.1 mg/dL Normal 2.4-4.9 [facility] Comment on above: Performed By: #### 2 106-3 #### [facility] ([id number]) [address] [place] [address] 50110 Potassium [Moles/Vol] 3.9 mmol/L Normal 3.5-5.0 [facility] Comment on above: Performed By: #### 2 106-3 #### [facility] ([id number]) [address] [place] [address] 22171 Sodium [Moles/Vol] 141 mmol/L Normal 134-146 [facility] Comment on above: Performed By: #### 2 106-3 #### [facility] ([id number]) [address] [place] [address] 74436 Urea nitrogen [Mass/Vol] 12 mg/dL Normal 5-23 [facility] Comment on above: Performed By: #### 2 106-3 #### [facility] ([id number]) [address] [place] [address] 15420 CBC AND AUTO DIFFon 02-09-20 24 ABSOLUTE BASOPHIL 0.0 X10E9/L Normal 0.0-0.2 [facility] Comment on above: Performed By: #### C BCA, CMP #### [facility] ([id number]) [address] [place] [address] 75192 ABSOLUTE NEUTROPHIL 2.4 X10E9/L Normal 1.5-6.6 [facility] Comment on above: Performed By: #### C BCA, CMP #### [facility] ([id number]) [address] [place] [address] 46054 Basophils/100 WBC (Bld) 0.8 % Normal [facility] Comment on above: Performed By: #### C BCA, CMP #### [facility] ([id number]) [address] [place] [address] 54320 Eosinophils (Bld) [#/Vol] 0.1 10*3/uL Normal 0.0-0.4 [facility] Comment on above: Performed By: #### C BCA, CMP #### [facility] ([id number]) [address] [place] [address] 75265 Eosinophils/100 WBC (Bld) 2.3 % Normal [facility] Comment on above: Performed By: #### C NIKKIE, CMP #### [facility] ([id number]) [address] [place] [address] 53587 Erythrocyte distribution width (RBC) [Ratio] 13.2 % Normal 11.5-15.0 [facility] Comment on above: Performed By: #### C NIKKIE, CMP #### [facility] ([id number]) [address] [place] [address] 17507 Hematocrit (Bld) [Volume fraction] 35.7 % Normal 35-47 [facility] Comment on above: Performed By: #### C NIKKIE, CMP #### [facility] ([id number]) [address] [place] [address] 31416 Hemoglobin (Bld) [Mass/Vol] 12.6 g/dL Normal 11.7-15.5 [facility] Comment on above: Performed By: #### C NIKKIE, CMP #### [facility] ([id number]) [address] [place] [address] 42598 Lymphocytes (Bld) [#/Vol] 1.9 10*3/uL Normal 1.0-3.5 [facility] Comment on above: Performed By: #### C NIKKIE, CMP #### [facility] ([id number]) [address] [place] [address] 39530 Lymphocytes/100 WBC (Bld) 38.7 % Normal [facility] Comment on above: Performed By: #### C NIKKIE, CMP #### [facility] ([id number]) [address] [place] [address] 52676 MCH (RBC) [Entitic mass] 31.2 pg Normal 27-34 [facility] Comment on above: Performed By: #### C NIKKIE, CMP #### [facility] ([id number]) [address] [place] [address] [place] [address] MCHC (RBC) [Mass/Vol] 35.3 g/dL Normal 32-36 [facility] Comment on above: Performed By: #### C NIKKIE, CMP #### [facility] ([id number]) [address] [place] [address] 72182 MCV (RBC) [Entitic vol] 89 fL Normal 80-100 [facility] Comment on above: Performed By: #### C NIKKIE, CMP #### [facility] ([id number]) [address] [place] [address] 39725 Monocytes (Bld) [#/Vol] 0.4 10*3/uL Normal 0-0.9 [facility] Comment on above: Performed By: #### C NIKKIE, CMP #### [facility] ([id number]) [address] [place] [address] 71920 Monocytes/100 WBC (Bld) 7.5 % Normal [facility] Comment on above: Performed By: #### C NIKKIE, CMP #### [facility] ([id number]) [address] [place] [address] 90714 Neutrophils/100 WBC (Bld) 50.7 % Normal [facility] Comment on above: Performed By: #### C NIKKIE, CMP #### [facility] ([id number]) [address] [place] [address] [place] [address] Platelet mean volume (Bld) [Entitic vol] 8.2 fL Normal 7-12 [facility] Comment on above: Performed By: #### C BCA, CMP #### [facility] ([id number]) [address] [place] [address] [place] [address] Platelets (Bld) [#/Vol] 210 10*3/uL Normal 150-450 [facility] Comment on above: Performed By: #### C BCA, CMP #### [facility] ([id number]) [address] [place] [address] 45909 RBC COUNT 4.04 X10E12/L Normal 3.80-5.20 [facility] Comment on above: Performed By: #### C BCA, CMP #### [facility] ([id number]) [address] [place] [address] 68149 WBC (Bld) [#/Vol] 4.8 10*3/uL Normal 4.0-11.0 [facility] Comment on above: Performed By: #### C BCA, CMP #### [facility] ([id number]) [address] [place] [address] 81830 COMPREHENSIVE METABOLIC PANE Kameron 02-09-2024 Albumin [Mass/Vol] 4.4 g/dL Normal 3.2-5.3 [facility] Comment on above: Performed By: #### C BCA, CMP #### [facility] ([id number]) [address] [place] [address] 01850 ALP [Catalytic activity/Vol] 78 U/L Normal 39-130 [facility] Comment on above: Performed By: #### C BCA, CMP #### [facility] ([id number]) [address] [place] [address] 03826 ALT [Catalytic activity/Vol] 14 U/L Normal 0-31 [facility] Comment on above: Performed By: #### C BCA, CMP #### [facility] ([id number]) [address] [place] [address] 77164 Anion gap [Moles/Vol] 3 mmol/L Low 5-15 [facility] Comment on above: Performed By: #### C BCA, CMP #### [facility] ([id number]) [address] [place] [address] 44965 AST [Catalytic activity/Vol] 17 U/L Normal 0-41 [facility] Comment on above: Performed By: #### C BCA, CMP #### [facility] ([id number]) [address] [place] [address] 62071 Bilirubin [Mass/Vol] 0.6 mg/dL Normal 0.3-1.2 [facility] Comment on above: Performed By: #### C BCA, CMP #### [facility] ([id number]) [address] [place] [address] 89356 Calcium [Mass/Vol] 8.6 mg/dL Normal 8.5-10.5 [facility] Comment on above: Performed By: #### C BCA, CMP #### [facility] ([id number]) [address] [place] [address] 00795 Chloride [Moles/Vol] 105 mmol/L Normal 98-109 [facility] Comment on above: Performed By: #### C BCA, CMP #### [facility] ([id number]) [address] [place] [address] 92881 CO2 [Moles/Vol] 25 mmol/L Normal 22-32 [facility] Comment on above: Performed By: #### C BCA, CMP #### [facility] ([id number]) [address] [place] [address] 98525 Creatinine [Mass/Vol] 0.82 mg/dL Normal 0.40-1.00 [facility] Comment on above: Result Comment: METH OD TRACEABLE TO IDMS STANDARD Performed By: #### C BCA, CMP #### [facility] ([id number]) [address] [place] [address] 08396 eGFR (CKD-EPI) NON-RACE DEPENDENT >90 Normal >59 [facility] Comment on above: Result Comment: Reported eGFR is based on the CKD-EPI 2020 equation that does not use a race coefficient. Performed By: #### C BCA, CMP #### [facility] ([id number]) [address] [place] [address] 18956 Glucose [Mass/Vol] 87 mg/dL Normal 65-99 [facility] Comment on above: Performed By: #### C BCA, CMP #### [facility] ([id number]) [address] [place] [address] 21044 Potassium [Moles/Vol] 3.9 mmol/L Normal 3.5-5.0 [facility] Comment on above: Performed By: #### C BCA, CMP #### [facility] ([id number]) [address] [place] [address] 78654 Protein [Mass/Vol] 7.2 g/dL Normal 6.0-8.0 [facility] Comment on above: Performed By: #### C BCA, CMP #### [facility] ([id number]) [address] [place] [address] 25765 Sodium [Moles/Vol] 133 mmol/L Low 134-146 [facility] Comment on above: Performed By: #### C BCA, CMP #### [facility] ([id number]) [address] [place] [address] 51893 Urea nitrogen [Mass/Vol] 11 mg/dL Normal 5-23 [facility] Comment on above: Performed By: #### C BCA, CMP #### [facility] ([id number]) [address] [place] [address] 93767 Glucose Glucometer (BldC) [M ass/Vol]on 02-09-2024 Glucose [Mass/Vol] 106 mg/dL High 65-99 [facility] Glucose [Mass/Vol] 65 mg/dL Normal 65-99 [facility] URN MACROSCOPIC NURon 2023 BILIRUBIN INDER Negative Normal NEG [facility] Comment on above: Performed By: #### N UM #### [facility] ([id number]) [address] [place] [address], [place] [address] BLOOD/HGB INDER Negative Normal NEG [facility] Comment on above: Performed By: #### N UM #### [facility] ([id number]) [address] [place] [address], [place] [address] GLUCOSE INDER Negative Normal NEG [facility] Comment on above: Performed By: #### N UM #### [facility] ([id number]) [address] [place] [address], [place] [address] KETONES INDER Negative Normal NEG [facility] Comment on above: Performed By: #### N UM #### [facility] ([id number]) [address] [place] [address] [place] [address] LEUKOCYTE ESTERASE INDER Negative Normal NEG [facility] Comment on above: Performed By: #### N UM #### [facility] ([id number]) [address] [place] [address], [place] [address] NITRITE INDER Negative Normal NEG [facility] Comment on above: Performed By: #### N UM #### [facility] ([id number]) [address] [place] [address], [place] [address] PH INDER 7.0 Normal 5.0-8.5 [facility] Comment on above: Performed By: #### N UM #### [facility] ([id number]) [address] [place] [address], [place] [address] PROTEIN INDER Negative Normal NEG [facility] Comment on above: Performed By: #### N UM #### [facility] ([id number]) [address] [place] [address], [place] [address] SPECIFIC GRAVITY INDER 1.010 Normal 1.003-1.035 [facility] Comment on above: Performed By: #### N UM #### [facility] ([id number]) [address] [place] [address] 04774 UROBILINOGEN NIDER 0.2 eu/dL Normal <1.1 [facility] Comment on above: Performed By: #### N UM #### [facility] ([id number]) [address] [place] [address] 47337 XR SACRUM COCCYX MIN 2 VWSon 01-28-2024 [...] Lang MD on 01/28/2024 8:46 PM Normal [facility] HCG ( test) Ql (U)o n 11-20-2023 Beta HCG ( test) Ql (U) Negative Normal NEG [facility] Comment on above: Performed By: #### 2 106-3 #### [facility] ([id number]) [address] [place] [address] 64731 SARS/FLU A+B/RSV by NAAT/Mol ecularon 11-20-2023 SARS/FLU [...] operators who are performing tests using either SnapMD or Yecur[employer] systems and is limited to laboratories that [...] repeat. Fact Sheet for Healthcare Providers: https://www.fda.gov/me yusuf/094962/download Fact Sheet for Patients: https://www.fda.gov/me yusuf/640574/download Normal [facility] Comment on above: Performed By: #### C OVFLR #### [facility] ([id number]) [address] [place] [address] 98647 URN MACROSCOPIC NURon 2023 BILIRUBIN INDER Small Abnormal NEG [facility] Comment on above: Performed By: #### N UM #### [facility] ([id number]) [address] [place] [address] 93515 BLOOD/HGB INDER Trace Abnormal NEG [facility] Comment on above: Performed By: #### N UM #### [facility] ([id number]) [address] [place] [address] 58029 GLUCOSE INDER Negative Normal NEG [facility] Comment on above: Performed By: #### N UM #### [facility] ([id number]) [address] [place] [address] [place] [address] KETONES INDER Negative Normal NEG [facility] Comment on above: Performed By: #### N UM #### [facility] ([id number]) [address] [place] [address] 11942 LEUKOCYTE ESTERASE INDER Negative Normal NEG [facility] Comment on above: Performed By: #### N UM #### [facility] ([id number]) [address] [place] [address] [place] [address] NITRITE INDER Negative Normal NEG [facility] Comment on above: Performed By: #### N UM #### [facility] ([id number]) [address] [place] [address] 27946 PH INDER 5.5 Normal 5.0-8.5 [facility] Comment on above: Performed By: #### N UM #### [facility] ([id number]) [address] [place] [address] 62538 PROTEIN INDER Trace Abnormal NEG [facility] Comment on above: Performed By: #### N UM #### [facility] ([id number]) [address] [place] [address] [place] [address] SPECIFIC GRAVITY INDER >=1.030 Normal 1.003-1.035 [facility] Comment on above: Performed By: #### N UM #### [facility] ([id number]) [address] [place] [address] [place] [address] UROBILINOGEN INDER 0.2 eu/dL Normal <1.1 [facility] Comment on above: Performed By: #### N UM #### [facility] ([id number]) [address] [place] [address] [place] [address] PAP ACOG PANEL 2: 30 to 65on 10-31-2022 . . Normal [facility] Comment on above: Result Comment: Perf ormed at: WB Performed By: #### 4 [id number] #### [facility] [address] [address] [address] Claudia Ramos Age Gdln ACOG Testing 30-65 Normal [facility] Comment on above: Performed By: #### 4 [id number] #### [facility] [address] [address] [address] Claudia Ramos DIAGNOSIS: Comment Normal [facility] Comment on above: Result Comment: NEGA TIVE FOR INTRAEPITHELIAL LESION OR MALIGNANCY. FUNGAL ORGANISMS MORPHOLOGICALLY CONSISTENT WITH CHEYENNE SPECIES ARE PRESENT. THIS SPECIMEN WAS RESCREENED PART OF OUR SULPHATE TESTER PROGRAM. Performed at: WB Performed By: #### 4 [id number] #### [facility] [address] [address] [address] Claudia Ramos HPV Aptima Negative Normal Negative [facility] Comment on above: Result Comment: This nucleic acid amplification test detects fourteen high-risk HPV types (16,18,31,33,35,39,45,51,52,56,58,59,66,68) without differentiation. Performed at: =G Performed By: #### 4 [id number] #### [facility] [address] [address] [address] Claudia Ramos HPV Genotype Reflex Comment Normal [facility] Comment on above: Result Comment: Crit eria not met, HPV Genotype not performed. Performed at: WB Performed By: #### 4 [id number] #### [facility] [address] [place] [address] Dr. Claudia Ramos Methodology: Comment Normal [facility] Comment on above: Result Comment: This liquid based ThinPrep(R) pap test was screened with the use of an image guided system. Performed at: WB Performed By: #### 4 [id number] #### [facility] [address] [place] [address] Dr. Claudia Ramos Note: Comment Normal [facility] Comment on above: Result Comment: The Pap smear is a screening test designed to aid in the detection of premalignant and malignant conditions of the uterine cervix. It is not a diagnostic procedure and should not be used as the sole means of detecting cervical cancer. Both false-positive and false-negative reports do occur. . Performed at: WB Performed By: #### 4 [id number] #### [facility] [address] [address] [address] Claudia Ramos Performed by: Comment Normal [facility] Comment on above: Result Comment: Matthias Sánchez, Outcomes Specialist (ASCP) Performed at: [facility] Performed By: #### 4 [id number] #### [facility] Laboratory [address] [address] [address] Claudia Ramos QC reviewed by: Comment Normal [facility] Comment on above: Result Comment: Yaakov Garcia, Outcomes Specialist (ASCP) Performed at: WB Performed By: [id number] #### [facility] [address] [address] [address] Claudia Ramos Specimen adequacy: Comment Normal [facility] Comment on above: Result Comment: Sati sfactory for evaluation. No endocervical component is identified. Performed at: WB Performed By: [id number] #### [facility] [address] [address] [address] Claudia Ramos Encounters Encounter Date Encounter Type Care Provider Facility Start: 03-08-2024 End: 03-08-2024 ambulatory DIONTE DICKSON Not Available Start: 02-12-2024 End: 02-13-2024 ambulatory ORLANDO JAIMES [facility] Start: 02-09-2024 End: 02-09-2024 Emergency department patient visit [facility] Start: 01-28-2024 End: 01-29-2024 Emergency department patient visit LAKSHMI GOMEZ [facility] Start: 11-20-2023 End: 11-21-2023 Emergency department patient visit [facility] Start: 04-24-2023 ambulatory Dean Carbajal acility:[facility] Start: 10-17-2022 End: 10-18-2022 ambulatory [facility] Facility: Payers Date Payer Category Payer Private Health Insurance [id number] 2023 Self-pay 1990 Unknown [id number] 2.16.84 [id number] 1990 Unknown [id number] 2.16.8 [id number] 1991 Unknown [id number] 2.16.8 [id number] 1991 Unknown [id number] 2.16.8 [id number] 1991 Unknown [id number] 2.16.8 [id number] 1991 Unknown [id number] 2.16.8 [id number] 1991 Unknown [id number] 2.16.84 [id number] 1959 Private Health Insurance [id number] 1959 Unknown [id number] Unknown [id number] 2.16.8 [id number] Summary Purpose Family History No Family History Records FoundNo Family History Records FoundNo Family History Records FoundNo Family History Records Found Advance Directives No Advanced Directives Records FoundNo Advanced Directives Records FoundNo Advanced Directives Records FoundNo Advanced Directives Records Found Additional Source Comments INFORMATION SOURCE (unrecogn ized section and content) DATE CREATED AUTHOR 01/25/2023 [facility] DATE CREATED AUTHOR AUTHOR'S ORGANIZ ATION 10/26/2023 [facility] DATE CREATED AUTHOR AUTHOR'S ORGANIZ ATION 02/15/2024 [facility] DATE CREATED AUTHOR AUTHOR'S ORGANIZ ATION 03/09/2024 [facility] EPIC FOR RECORDS PERTAINING TO PATIENTS WHO ARE [...] BE BASED ON THE PRIMARY CLINICAL RECORDS. [employer] [facility]. provides no warranty or guarantee of the accuracy or completeness of information in this document.
--- NOTE | 2024-03-16 13:46 | US_ITS ---
The [address] [address] Patient Name: TORSTEN SÁNCHEZ MRN: [id number] date: 1990 Sex: F Assigned Patient Location: MAMMO Current Patient Location: Accession/Order Number: [id number] Exam Date: 03/16/2024 13:58 Report Date: 03/17/2024 11:11 At the request of: DIONTE DICKSON Procedure: US extremity nonvascular LT EXAMINATION: US extremity nonvascular LT HISTORY: Left axillary lump COMPARISON: No relevant comparison available. FINDINGS: Multiple oval well-circumscribed lesions are identified in the left axilla corresponding to the patient's palpable abnormality. The 2 largest measuring 1.9 x 0.8 x 1.3 cm and 1.7 x 0.7 x 0.7 cm. These lesions have a thin hypoechogenic periphery with a hyperechogenic hypervascular hilum and likely represent normal lymph nodes US/US extremity nonvascular LT IMPRESSION: Normal size lymph nodes corresponding to the patient's left axillary palpable lesions Electronically authenticated by: LAKEISHA HERNANDEZ Date: 03/17/2024 11:11
== END 2024-03-16 13:33 | disposition home or self-care (01) ==
LOC: MAMMO 13:35
PROVIDERS: Visit Provider Obstetrics & Gynecology
DX: N63.20 Unspecified lump in the left breast, unspecified quadrant (principal); R22.32 Localized swelling, mass and lump, left upper limb
CPT/HCPCS: 76882

== ENCOUNTER 2024-12-23 19:46 | Outpatient (REF) | payer OTHER, SELFPAY ==
--- OUTSIDE RECORDS SUMMARY | 2024-12-23 19:50 | XMS_ITS | CCD ---
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 Name Role Phone [facility] Primary Care Unavailable RANDOLPH ., DR RAPP Attending Unavailable RANDOLPH ., DR RAPP Consulting Unavailable RANDOLPH ., DR RAPP Admitting Unavailable Dean Grigsby Attending Unavailab le Dean Grigsby Admitting Unavailab le NON STAFF Primary Care Unavailable SAIRALIM, GABBY A Primary Care Unavailable LAKSHMI JAMES Attending Unavailable LAKSHMI JAMES Referring Unavailable ANGLIM, GABBY A Primary Care Unavailable SAIRALIM, GABBY A Primary Care Unavailable JOSH RIVAS Attending Unavailable FIONA, AHMAD F Referring Unavailable NO PCP, NO PCP Primary Care Unavailable FIONA, AHMAD F Referring Unavailable NO PCP, NO PCP Primary Care Unavailable NO PCP, NO PCP Primary Care Unavailable TAVIA ADEN Attending Unavailable ANGLIM, GABBY A Primary Care Unavailable BRETIFFANIESDEIONTAVIA P Attending Unavailable BREDEION CONTRERASTAVIA P Referring Unavailable NO PCP, NO PCP Primary Care Unavailable NO PCP, NO PCP Primary Care Unavailable Unavailable Primary Care Provider Unavailabl e No Pcp, No Pcp Primary Care Provider Unavailabl e DIONTE DICKSON Attending Unavailable INDIA KRAFT Attending Unavailable Allergies Allergy Classification Reported Allergen(s) Allergy Type Date of Onset Reaction(s) Facility (2 sources) fentaNYL; Translations: [FENTANYL] Drug Allergy 05-23-[address] [facility] Repository (1 source) HYDROmorphone Drug Allergy 08-15-[address] [facility] Repository (2 sources) Naproxen; Translations: [NAPROXEN] Drug Allergy 05-27-[address] [facility] Repository (5 sources) HYDROmorphone; Translations: [HYDROMORPHONE] Drug Allergy 05-23-20 21 Palpitations, Tachycardia [facility] Repository (4 sources) NSAIDs; Translations: [NSAIDS (NON-STEROIDAL ANTI-INFLAMMATORY DRUG)] Propensity to adverse reactions to drug (disorder) 07-15-20 [facility] Repository (4 sources) fentaNYL Drug Allergy 05-23-20 21 Palpitations, Tachycardia [facility] (4 sources) Naproxen Drug Allergy 10-03-20 16 [facility]ations [facility] (1 source) Non-steroidal anti-inflammatory agent Drug Intolerance 07-15-20 22 [facility] Medications Current Medications Medication Drug Class(es) Dates Sig (Normalized) Sig (Original) ARIPiprazole 5 mg oral tablet (3 sources) Atypical Antipsychotic take 1 tablet by mouth in the morning ARIPiprazole (ABILIFY) 5 mg tablet Take 1 tablet (5 mg total) by mouth in the morning. Active cholecalciferol 0.05 mg oral capsule (3 sources) Vitamin D Start: 12-17-2021 take 1 capsule by mouth once daily cholecalciferol, vitamin D3, 2,000 units capsule Take 1 capsule (2,000 Units total) by mouth daily. 30 capsule 12/17/2021 Active dicyclomine hydrochloride 20 mg oral tablet (6 sources) Anticholinergic Start: 08-22-2022 take 1 tablet by mouth in the morning, then take 1 tablet by mouth at bedtime dicyclomine (BENTYL) 20 mg tablet Take 1 tablet (20 mg total) by mouth in the morning and 1 tablet (20 mg total) before bedtime. 20 tablet 08/30/2023 Active estrogens, conjugated (residential) 0.3 mg oral tablet (3 sources) Estrogen take 1 tablet by mouth once daily estrogens, conjugated, (PREMARIN) 0.3 mg tablet Take 0.3 mg by mouth daily. Active fluconazole 150 mg oral tablet (1 source) Azole Antifungal Start: 10-18-2024 take 1 tablet by mouth once, then take 1 tablet by mouth once fluconazole (Diflucan) 150 MG tablet Indications: Yeast infection TAKE 1 TABLET (150 MG) BY MOUTH 1 (ONE) TIME FOR 1 DOSE THIS IS A 1 TIME DOSE 1 tablet 1 10/18/2024 Active lidocaine 0.05 mg/mg medicated patch (3 sources) Antiarrhythmic, Amide Local Anesthetic Start: 01-28-2024 apply 1 dose transdermal route once daily, then apply 1 dose transdermal route every twelve hours lidocaine (LIDODERM) 5 % Place 1 patch on the skin daily. Remove & Discard patch within 12 hours or as directed by 15 patch 01/28/2024 Active multivitamin (THERAGRAN) tablet (3 sources) Start: 10-17-2021 take 1 tablet by mouth once daily multivitamin (THERAGRAN) tablet Take 1 tablet by mouth daily. 10/17/2021 Active omeprazole 20 mg delayed release oral capsule (3 sources) Proton Pump Inhibitor Start: 10-23-2021 take 1 capsule by mouth once daily before breakfast omeprazole (PriLOSEC) 20 mg capsule Take 1 capsule (20 mg total) by mouth every morning before breakfast. 10/23/2021 Active ondansetron 4 mg disintegrating oral tablet (3 sources) Serotonin-3 Receptor Antagonist Start: 11-20-2023 take 1 tablet by mouth every eight hours as needed for nausea ondansetron ODT (ZOFRAN ODT) 4 mg disintegrating tablet Dissolve 1 tablet (4 mg total) on tongue every 8 (eight) hours as needed for nausea for up to 10 doses. 10 tablet 11/20/2023 Active vitamin b12 1 mg sublingual tablet (3 sources) Vitamin B12 Start: 12-17-2021 take 1 tablet under the tongue once daily cyanocobalamin (VITAMIN B12) 1,000 mcg tablet, sublingual Place 1 tablet (1,000 mcg total) under the tongue daily. 30 tablet 11 12/17/2021 Active Completed/Discontinued Medications Medication Drug Class(es) Dates Sig (Normalized) Sig (Original) cosyntropin (CORTROSYN) 1 mcg in sodium chloride 0.9 % IV syringe (RTA) (1 source) Start: 04-02-2024 End: 04-02-2024 inject 1 ug intravenously once 1 mcg, intravenous, Once, On Fri04/02/24 at 0830, For 1 dose, Give Cortrosyn 1 mcg IV by rapid flush. Inject close to patient and flush rapidly with NS to avoid effects of rapid degradation and adherence of Cortrosyn to IV tubing. Look-alike/sound-a like medication - verify indication for use. Problems Active Problems Problem Classification Problem Date Documented Da te Episodic/Chronic Alcohol-related disorders (3 sources) Alcohol intoxication; Translations: [Alcohol abuse, uncomplicated] Onset: 10-13-2023 Chronic Alcohol-related disorders (1 source) Alcohol use, unspecified with intoxication, unspecified; Translations: [Alcohol use, unspecified with intoxication, unspecified] Onset: 04-25-2024 Episodic Anxiety disorders (4 sources) Post-traumatic stress disorder, chronic; Translations: [Generalized anxiety disorder] Onset: 10-13-2023 Chronic Blindness and vision defects (3 sources) Visual impairment; Translations: [Unspecified visual loss] 09-08-2019 Chronic Mood disorders (2 sources) Major depressive disorder, single episode, mild; Translations: [Major depressive disorder. single episode. mild] Onset: 10-13-2023 Chronic Other ear and sense organ disorders (3 sources) Hearing loss; Translations: [Unspecified hearing loss, unspecified ear] Onset: 06-06-2020 06-06-2020 Chronic Other endocrine disorders (1 source) Hypoglycemia, unspecified; Translations: [Hypoglycemia, unspecified] Onset: 03-23-2024 Chronic Other endocrine disorders (6 sources) Hypoglycemia; Translations: [Hypoglycemia, unspecified] Onset: 03-23-2024 04-02-2024 Chronic Other gastrointestinal disorders (1 source) Bariatric surgery status; Translations: [Bariatric surgery status] Onset: 03-23-2024 Episodic Other nervous system disorders (3 sources) Bilateral tarsal tunnel syndrome; Translations: [Tarsal tunnel syndrome, bilateral lower limbs] Onset: 10-24-2021 10-24-2021 Chronic Other screening for suspected conditions (not mental disorders or infectious disease) (12 sources) Encounter for screening for malignant neoplasm of cervix; Translations: [Abnormal level of hormones in specimens from other organs, systems and tissues] Onset: 10-17-2022 Episodic Spondylosis; intervertebral disc disorders; other back problems (1 source) Sacrococcygeal disorders, not elsewhere classified; Translations: [Sacrococcygeal disorders, not elsewhere classified] Onset: 01-28-2024 Episodic Unclassified (1 source) Outpatient Infusion Onset: 04-02-2024 Unclassified (1 source) Low Blood Sugar - Symptomatic Onset: 02-09-2024 Unclassified (1 source) Coccyx Injury Onset: 01-28-2024 Unclassified (1 source) FALL - INJURY TO TAILBONE Onset: 01-28-2024 Past or Other Problems Problem Classification Problem Date Documented Da te Episodic/Chronic Asthma (3 sources) Asthma; Translations: [Unspecified asthma, uncomplicated] Resolved: 07-06-2020 07-06-2020 Chronic Immunizations and screening for infectious disease (1 source) Encounter for screening for human papillomavirus (HPV); Translations: [ENC SCREENING HUMAN PAPILLOMAVIRUS] Onset: 10-24-2022 Episodic Mood disorders (3 sources) Mood disorders Onset: 10-24-2021 10-24-2021 Noninfectious gastroenteritis (1 source) Noninfective gastroenteritis and colitis, unspecified; Translations: [Noninfective gastroenteritis and colitis, unspecified] Onset: 11-20-2023 Episodic Nonspecific chest pain (3 sources) Chest pain; Translations: [Chest pain, unspecified] Resolved: 07-06-2020 07-06-2020 Episodic Other gastrointestinal disorders (1 source) Diarrhea Onset: 11-20-2023 Episodic Other gastrointestinal disorders (7 sources) History of bariatric surgical procedure; Translations: [Bariatric surgery status] Onset: 03-23-2024 04-02-2024 Episodic Other lower respiratory disease (3 sources) Dyspnea; Translations: [Shortness of breath] 09-08-2019 Episodic Other nervous system disorders (3 sources) Lesion of ulnar nerve, left upper limb; Translations: [Lesion of ulnar nerve] Onset: 10-24-2021 Resolved: 12-17-2021 12-17-2021 Chronic Other nervous system disorders (3 sources) Bilateral carpal tunnel syndrome; Translations: [Carpal tunnel syndrome, bilateral upper limbs] Onset: 10-24-2021 Resolved: 12-17-2021 12-17-2021 Chronic Other nervous system disorders (3 sources) Paresthesia; Translations: [Paresthesia of skin] Onset: 10-24-2021 10-24-2021 Episodic Otitis media and related conditions (3 sources) Dysfunction of right eustachian tube; Translations: [Unspecified Eustachian tube disorder, right ear] Onset: 06-06-2020 Resolved: 06-19-2020 06-19-2020 Episodic Results Test Name Value Interpretation Reference Range Facil ity CBC AND AUTO DIFFon 04-25-20 ABSOLUTE BASOPHIL 0.0 X10E9/L Normal 0.0-0.2 [facility] Comment on above: Performed By: #### 2 106-3 #### [facility] ([id number]) [address] [place] [address] 56369 ABSOLUTE NEUTROPHIL 2.4 X10E9/L Normal 1.5-6.6 [facility] Comment on above: Performed By: #### 2 106-3 #### [facility] ([id number]) [address] [place] [address] 47408 Basophils/100 WBC (Bld) 0.6 % Normal [facility] Comment on above: Performed By: #### 2 106-3 #### [facility] ([id number]) [address] [place] [address] 57000 Eosinophils (Bld) [#/Vol] 0.0 10*3/uL Normal 0.0-0.4 [facility] Comment on above: Performed By: #### 2 106-3 #### [facility] ([id number]) [address] [place] [address] 86030 Eosinophils/100 WBC (Bld) 0.6 % Normal [facility] Comment on above: Performed By: #### 2 106-3 #### [facility] ([id number]) [address] [place] [address] 91252 Erythrocyte distribution width (RBC) [Ratio] 13.2 % Normal 11.5-15.0 [facility] Comment on above: Performed By: #### 2 106-3 #### [facility] ([id number]) [address] [place] [address] 45412 Hematocrit (Bld) [Volume fraction] 35.3 % Normal 35-47 [facility] Comment on above: Performed By: #### 2 106-3 #### [facility] ([id number]) [address] [place] [address] 61001 Hemoglobin (Bld) [Mass/Vol] 12.3 g/dL Normal 11.7-15.5 [facility] Comment on above: Performed By: #### 2 106-3 #### [facility] ([id number]) [address] [place] [address] 08663 Lymphocytes (Bld) [#/Vol] 1.8 10*3/uL Normal 1.0-3.5 [facility] Comment on above: Performed By: #### 2 106-3 #### [facility] ([id number]) [address] [place] [address] 85513 Lymphocytes/100 WBC (Bld) 39.6 % Normal [facility] Comment on above: Performed By: #### 2 106-3 #### [facility] ([id number]) [address] [place] [address] 19542 MCH (RBC) [Entitic mass] 30.9 pg Normal 27-34 [facility] Comment on above: Performed By: #### 2 106-3 #### [facility] ([id number]) [address] [place] [address] 32764 MCHC (RBC) [Mass/Vol] 34.9 g/dL Normal 32-36 [facility] Comment on above: Performed By: #### 2 106-3 #### [facility] ([id number]) [address] [place] [address] 44819 MCV (RBC) [Entitic vol] 89 fL Normal 80-100 [facility] Comment on above: Performed By: #### 2 106-3 #### [facility] ([id number]) [address] [place] [address] 10737 Monocytes (Bld) [#/Vol] 0.3 10*3/uL Normal 0-0.9 [facility] Comment on above: Performed By: #### 2 106-3 #### [facility] ([id number]) [address] [place] [address] 16977 Monocytes/100 WBC (Bld) 6.9 % Normal [facility] Comment on above: Performed By: #### 2 106-3 #### [facility] ([id number]) [address] [place] [address] 76593 Neutrophils/100 WBC (Bld) 52.3 % Normal [facility] Comment on above: Performed By: #### 2 106-3 #### [facility] ([id number]) [address] [place] [address] 12486 Platelet mean volume (Bld) [Entitic vol] 8.4 fL Normal 7-12 [facility] Comment on above: Performed By: #### 2 106-3 #### [facility] ([id number]) [address] [place] [address] 35829 Platelets (Bld) [#/Vol] 243 10*3/uL Normal 150-450 [facility] Comment on above: Performed By: #### 2 106-3 #### [facility] ([id number]) [address] [place] [address] 46751 RBC COUNT 3.99 X10E12/L Normal 3.80-5.20 [facility] Comment on above: Performed By: #### 2 106-3 #### [facility] ([id number]) [address] [place] [address] 24653 WBC (Bld) [#/Vol] 4.6 10*3/uL Normal 4.0-11.0 [facility] Comment on above: Performed By: #### 2 106-3 #### [facility] ([id number]) [address] [place] [address] 50406 COMPREHENSIVE METABOLIC PANE Kameron 04-25-2024 Albumin [Mass/Vol] 4.4 g/dL Normal 3.2-5.3 [facility] Comment on above: Performed By: #### C OVFLR #### [facility] ([id number]) [address] [place] [address] 80798 ALP [Catalytic activity/Vol] 60 U/L Normal 39-130 [facility] Comment on above: Performed By: #### C OVFLR #### [facility] ([id number]) [address] [place] [address] 51746 ALT [Catalytic activity/Vol] 18 U/L Normal 0-31 [facility] Comment on above: Performed By: #### C OVFLR #### [facility] ([id number]) [address] [place] [address] 08234 Anion gap [Moles/Vol] 10 mmol/L Normal 5-15 [facility] Comment on above: Performed By: #### C OVFLR #### [facility] ([id number]) [address] [place] [address] 20535 AST [Catalytic activity/Vol] 29 U/L Normal 0-41 [facility] Comment on above: Performed By: #### C OVFLR #### [facility] ([id number]) [address] [place] [address] 42220 Bilirubin [Mass/Vol] 0.7 mg/dL Normal 0.3-1.2 [facility] Comment on above: Performed By: #### C OVFLR #### [facility] ([id number]) [address] [place] [address] [place] [address] Calcium [Mass/Vol] 8.7 mg/dL Normal 8.5-10.5 [facility] Comment on above: Performed By: #### C OVFLR #### [facility] ([id number]) [address] [place] [address] 72037 Chloride [Moles/Vol] 105 mmol/L Normal 98-109 [facility] Comment on above: Performed By: #### C OVFLR #### [facility] ([id number]) [address] [place] [address] 23085 CO2 [Moles/Vol] 21 mmol/L Low 22-32 [facility] Comment on above: Performed By: #### C OVFLR #### [facility] ([id number]) [address] [place] [address] 22502 Creatinine [Mass/Vol] 0.72 mg/dL Normal 0.40-1.00 [facility] Comment on above: Result Comment: METH OD TRACEABLE TO IDMS STANDARD Performed By: #### C OVFLR #### [facility] ([id number]) [address] [place] [address] 37049 eGFR (CKD-EPI) NON-RACE DEPENDENT >90 Normal >59 [facility] Comment on above: Result Comment: Reported eGFR is based on the CKD-EPI 2020 equation that does not use a race coefficient. Performed By: #### C OVFLR #### [facility] ([id number]) [address] [place] [address] 71433 Glucose [Mass/Vol] 88 mg/dL Normal 65-99 [facility] Comment on above: Performed By: #### C OVFLR #### [facility] ([id number]) [address] [place] [address] 85184 Potassium [Moles/Vol] 3.9 mmol/L Normal 3.5-5.0 [facility] Comment on above: Performed By: #### C OVFLR #### [facility] ([id number]) [address] [place] [address] 60980 Protein [Mass/Vol] 7.4 g/dL Normal 6.0-8.0 [facility] Comment on above: Performed By: #### C OVFLR #### [facility] ([id number]) [address] [place] [address] 38190 Sodium [Moles/Vol] 136 mmol/L Normal 134-146 [facility] Comment on above: Performed By: #### C OVFLR #### [facility] ([id number]) [address] [place], [place] [address] Urea nitrogen [Mass/Vol] 12 mg/dL Normal 5-23 [facility] Comment on above: Performed By: #### C OVFLR #### [facility] ([id number]) [address] [place] [address] ABDOMEN AND PELVIS W CONT on 04-25-2024 CT ABDOMEN AND PELVIS W CONT CT ABDOMEN AND PELVIS W CONT CLINICAL INFORMATION: Abdominal pain, acute, nonlocalized. COMPARISON: 08/22/2022 TECHNIQUE: CT of the abdomen and pelvis with intravenous contrast. FINDINGS: LOWER CHEST: Lung bases are clear. LIVER AND BILIARY: No acute abnormality. Cholecystectomy. PANCREAS: No acute abnormality. SPLEEN: Within normal limits. ADRENALS: Within normal limits. KIDNEYS, URETERS, AND BLADDER: Symmetric enhancement. No suspicious lesion or hydronephrosis. Normal bladder contour. GI TRACT AND PERITONEUM: Postoperative changes of the stomach. Nondilated appendix. No obstruction. Trace free fluid, potentially physiologic. No free air. VASCULATURE: Normal caliber aorta with patent portal vein. LYMPH NODES: Within normal limits. REPRODUCTIVE ORGANS: No acute abnormality. MUSCULOSKELETAL: No acute abnormality. IMPRESSION: 1. No acute abnormality. 2. Trace free fluid, presumed physiologic All CT scans at this facility use dose modulation, iterative reconstruction, and/or weight based dosing when appropriate to reduce radiation dose to as low as reasonably achievable. Finalized by Chino Pruitt MD on 04/25/2024 5:45 AM Normal [facility] Ethanol [Mass/Vol]on 024 ETHANOL 0.19 g/dL High 0.00-0.08 [facility] Comment on above: Result Comment: This report is intended for use in clinical monitoring or management of patients. Performed By: #### C OVFLR #### [facility] ([id number]) [address] [place] [address] Glucose Glucometer (BldC) [M ass/Vol]on 04-25-2024 Glucose [Mass/Vol] 82 mg/dL Normal 65-99 [facility] LIPASEon 04-25-2024 Lipase [Catalytic activity/Vol] 47 U/L High 17-40 [facility] Comment on above: Performed By: #### C OVFLR #### [facility] ([id number]) [address] [place] [address] 30956 Cortisol [Mass/Vol]on 2023 CORTISOL 18.5 ug/dL Normal [facility] Comment on above: Result Comment: Due to the diurnal variation of cortisol levels in normal subjects, all cortisol measurements should be referenced to the time of day of sample collection. AM Cortisol Age>=6 6.7-22.4 ug/dL PM Cortisol Age>=6 <10 ug/dL Performed By: #### 2 106-3 #### [facility] ([id number]) [address] [place] [address] 69900 CORTISOL 14.8 ug/dL Normal [facility] Comment on above: Result Comment: Due to the diurnal variation of cortisol levels in normal subjects, all cortisol measurements should be referenced to the time of day of sample collection. AM Cortisol Age>=6 6.7-22.4 ug/dL PM Cortisol Age>=6 <10 ug/dL Performed By: #### 2 106-3 #### [facility] ([id number]) [address] [place] [address] 54355 C peptide [Mass/Vol]on 02-11 C PEPTIDE 1.8 ng/mL Normal 1.1-4.4 [facility] Comment on above: Result Comment: NOTE Test Performed By: [facility] Attributor [address] [place] [address] Forgesmith: Jose Eduardo Daigle III, M.D. CLIA #[id number] Performed By: #### 2 106-3 #### [facility] ([id number]) [address] [place] [address] 27113 Corticotropin (P) [Mass/Vol] on 02-12-2024 ACTH 9.9 pg/mL Normal 7.2-63.3 [facility] Comment on above: Result Comment: NOTE ACTH Reference Range: 7-10 am: 7.2 - 63.3 pg/mL Test Performed By: [facility] Attributor [address] [place] [address] Forgesmith: Jose Eduardo Daigle III, M.D. CLIA #[id number] Performed By: #### 2 106-3 #### [facility] ([id number]) [address] [place] [address] 18672 Cortisol [Mass/Vol]on 2023 CORTISOL 4.6 ug/dL Normal [facility] Comment on above: Result Comment: Due to the diurnal variation of cortisol levels in normal subjects, all cortisol measurements should be referenced to the time of day of sample collection. AM Cortisol Age>=6 6.7-22.4 ug/dL PM Cortisol Age>=6 <10 ug/dL Performed By: #### 2 106-3 #### [facility] ([id number]) [address] [place] [address] 55218 Insulin Qnon 02-12-2024 INSULIN 3.15 uIU/mL Normal 1.00-23.00 [facility] Comment on above: Result Comment: Ref. range is for FASTING NON-DIABETIC POPULATION. Performed By: #### 2 106-3 #### [facility] ([id number]) [address] [place] [address] 87115 LIVER PANELon 02-12-2024 Albumin [Mass/Vol] 5.1 g/dL Normal 3.2-5.3 [facility] Comment on above: Performed By: #### L IVR, RENAL #### [facility] ([id number]) [address] [place] [address] #### 1985-9, 55971-6 #### [facility] ([id number]) [address] [place] [address] 30770 Performed By: #### 2 106-3 #### [facility] ([id number]) [address] [place] [address] 19006 ALP [Catalytic activity/Vol] 91 U/L Normal 39-130 [facility] Comment on above: Performed By: #### L IVR, RENAL #### [facility] ([id number]) [address] [place] [address] #### 1985-9, 56518-7 #### [facility] ([id number]) [address] [place] [address] 05905 ALT [Catalytic activity/Vol] 13 U/L Normal 0-31 [facility] Comment on above: Performed By: #### L IVR, RENAL #### [facility] ([id number]) [address], [address] [place] [address] #### 1985-9, 41238-0 #### [facility] ([id number]) [address] [place] [address] 57230 AST [Catalytic activity/Vol] 18 U/L Normal 0-41 [facility] Comment on above: Performed By: #### L IVR, RENAL #### [facility] ([id number]) [address], [address] [place] [address] #### 1984-9, 37839-9 #### [facility] ([id number]) [address] [place] [address] 01737 Bilirubin [Mass/Vol] 0.8 mg/dL Normal 0.3-1.2 [facility] Comment on above: Performed By: #### L IVR, RENAL #### [facility] ([id number]) [address] [place] [address], [address] [place] [address] #### 1985-9, 07384-7 #### [facility] ([id number]) [address] [place] [address] 55053 Bilirubin.direct [Mass/Vol] 0.1 mg/dL Normal 0.0-0.4 [facility] Comment on above: Performed By: #### L IVR, RENAL #### [facility] [facility] ([id number]) [address] [place] [address], [address] [address] #### 1985-9, 77521-3 #### [facility] ([id number]) [address] [place] [address] 93941 Protein [Mass/Vol] 7.7 g/dL Normal 6.0-8.0 [facility] Comment on above: Performed By: #### L IVR, RENAL #### [facility] ([id number]) [address] [place] [address], [address] [place] [address] #### 1985-9, 35374-7 #### [facility] ([id number]) [address] [place] [address] 05322 Proinsulin post 12 Hr fast [ Moles/Vol]on 02-12-2024 PROINSULIN,INTACT <2.0 Normal <=7.2 [facility] Comment on above: Result Comment: NOTE Performed By: Shoot it! [address] [place] [address] Forgesmith: Sky Chapin MD, PhD CLIA Number: [id number] Performed By: #### 2 106-3 #### [facility] ([id number]) [address] [place] [address] 93797 RENAL PANELon 02-12-2024 Anion gap [Moles/Vol] 10 mmol/L Normal 5-15 [facility] Comment on above: Performed By: #### 2 106-3 #### [facility] ([id number]) [address] [place] [address] 92241 Calcium [Mass/Vol] 9.7 mg/dL Normal 8.5-10.5 [facility] Comment on above: Performed By: #### 2 106-3 #### [facility] ([id number]) [address] [place] [address] 89521 Chloride [Moles/Vol] 104 mmol/L Normal 98-109 [facility] Comment on above: Performed By: #### 2 106-3 #### [facility] ([id number]) [address] [place] [address] 07507 CO2 [Moles/Vol] 27 mmol/L Normal 22-32 [facility] Comment on above: Performed By: #### 2 106-3 #### [facility] ([id number]) [address] [place] [address] 07450 Creatinine [Mass/Vol] 0.74 mg/dL Normal 0.40-1.00 [facility] Comment on above: Result Comment: METH OD TRACEABLE TO IDMS STANDARD Performed By: #### 2 106-3 #### [facility] ([id number]) [address] [place] [address] 01071 eGFR (CKD-EPI) NON-RACE DEPENDENT >90 Normal >59 [facility] Comment on above: Result Comment: Reported eGFR is based on the CKD-EPI 2020 equation that does not use a race coefficient. Performed By: #### 2 106-3 #### [facility] ([id number]) [address] [place] [address] 37641 Glucose [Mass/Vol] 75 mg/dL Normal 65-99 [facility] Comment on above: Performed By: #### 2 106-3 #### [facility] ([id number]) [address] [place] [address] 83897 Phosphate [Mass/Vol] 4.1 mg/dL Normal 2.4-4.9 [facility] Comment on above: Performed By: #### 2 106-3 #### [facility] ([id number]) [address] [place] [address] 59790 Potassium [Moles/Vol] 3.9 mmol/L Normal 3.5-5.0 [facility] Comment on above: Performed By: #### 2 106-3 #### [facility] ([id number]) [address] [place] [address] 78390 Sodium [Moles/Vol] 141 mmol/L Normal 134-146 [facility] Comment on above: Performed By: #### 2 106-3 #### [facility] ([id number]) [address] [place] [address] 56948 Urea nitrogen [Mass/Vol] 12 mg/dL Normal 5-23 [facility] Comment on above: Performed By: #### 2 106-3 #### [facility] ([id number]) [address] [place] [address] 86597 CBC AND AUTO DIFFon 02-09-20 24 ABSOLUTE BASOPHIL 0.0 X10E9/L Normal 0.0-0.2 [facility] Comment on above: Performed By: #### C BCA, CMP #### [facility] ([id number]) [address] [place] [address] 63013 ABSOLUTE NEUTROPHIL 2.4 X10E9/L Normal 1.5-6.6 [facility] Comment on above: Performed By: #### C BCA, CMP #### [facility] ([id number]) [address] [place] [address] 80827 Basophils/100 WBC (Bld) 0.8 % Normal [facility] Comment on above: Performed By: #### C BCA, CMP #### [facility] ([id number]) [address] [place] [address] 28555 Eosinophils (Bld) [#/Vol] 0.1 10*3/uL Normal 0.0-0.4 [facility] Comment on above: Performed By: #### C NIKKIE, CMP #### [facility] ([id number]) [address] [place] [address] 36768 Eosinophils/100 WBC (Bld) 2.3 % Normal [facility] Comment on above: Performed By: #### C NIKKIE, CMP #### [facility] ([id number]) [address] [place] [address] 17910 Erythrocyte distribution width (RBC) [Ratio] 13.2 % Normal 11.5-15.0 [facility] Comment on above: Performed By: #### C NIKKIE, CMP #### [facility] ([id number]) [address] [place] [address] 49382 Hematocrit (Bld) [Volume fraction] 35.7 % Normal 35-47 [facility] Comment on above: Performed By: #### C NIKKIE, CMP #### [facility] ([id number]) [address] [place] [address] 06071 Hemoglobin (Bld) [Mass/Vol] 12.6 g/dL Normal 11.7-15.5 [facility] Comment on above: Performed By: #### C BCA, CMP #### [facility] ([id number]) [address] [place] [address] 52044 Lymphocytes (Bld) [#/Vol] 1.9 10*3/uL Normal 1.0-3.5 [facility] Comment on above: Performed By: #### C BCA, CMP #### [facility] ([id number]) [address] [place] [address] 02777 Lymphocytes/100 WBC (Bld) 38.7 % Normal [facility] Comment on above: Performed By: #### C BCA, CMP #### [facility] ([id number]) [address] [place] [address] 24098 MCH (RBC) [Entitic mass] 31.2 pg Normal 27-34 [facility] Comment on above: Performed By: #### C NIKKIE, CMP #### [facility] ([id number]) [address] [place] [address] 49882 MCHC (RBC) [Mass/Vol] 35.3 g/dL Normal 32-36 [facility] Comment on above: Performed By: #### C NIKKIE, CMP #### [facility] ([id number]) [address] [place] [address] 72702 MCV (RBC) [Entitic vol] 89 fL Normal 80-100 [facility] Comment on above: Performed By: #### C BCA, CMP #### [facility] ([id number]) [address] [place] [address] 88768 Monocytes (Bld) [#/Vol] 0.4 10*3/uL Normal 0-0.9 [facility] Comment on above: Performed By: #### C BCA, CMP #### [facility] ([id number]) [address] [place] [address] 51958 Monocytes/100 WBC (Bld) 7.5 % Normal [facility] Comment on above: Performed By: #### C BCA, CMP #### [facility] ([id number]) [address] [place] [address] 31044 Neutrophils/100 WBC (Bld) 50.7 % Normal [facility] Comment on above: Performed By: #### C BCA, CMP #### [facility] ([id number]) [address] [place] [address] 54951 Platelet mean volume (Bld) [Entitic vol] 8.2 fL Normal 7-12 [facility] Comment on above: Performed By: #### C BCA, CMP #### [facility] ([id number]) [address] [place] [address] 61756 Platelets (Bld) [#/Vol] 210 10*3/uL Normal 150-450 [facility] Comment on above: Performed By: #### C BCA, CMP #### [facility] ([id number]) [address] [place] [address] 81686 RBC COUNT 4.04 X10E12/L Normal 3.80-5.20 [facility] Comment on above: Performed By: #### C BCA, CMP #### [facility] ([id number]) [address] [place] [address] 39183 WBC (Bld) [#/Vol] 4.8 10*3/uL Normal 4.0-11.0 [facility] Comment on above: Performed By: #### C BCA, CMP #### [facility] ([id number]) [address] [place] [address] 78634 COMPREHENSIVE METABOLIC PANE [facility] 02-09-2024 Albumin [Mass/Vol] 4.4 g/dL Normal 3.2-5.3 [facility] Comment on above: Performed By: #### C BCA, CMP #### [facility] ([id number]) [address] [place] [address] 13913 ALP [Catalytic activity/Vol] 78 U/L Normal 39-130 [facility] Comment on above: Performed By: #### C BCA, CMP #### [facility] ([id number]) [address] [place] [address] 27529 ALT [Catalytic activity/Vol] 14 U/L Normal 0-31 [facility] Comment on above: Performed By: #### C BCA, CMP #### [facility] ([id number]) [address] [place] [address] 65969 Anion gap [Moles/Vol] 3 mmol/L Low 5-15 [facility] Comment on above: Performed By: #### C BCA, CMP #### [facility] ([id number]) [address] [place] [address] 04744 AST [Catalytic activity/Vol] 17 U/L Normal 0-41 [facility] Comment on above: Performed By: #### C BCA, CMP #### [facility] ([id number]) [address] [place] [address] 83337 Bilirubin [Mass/Vol] 0.6 mg/dL Normal 0.3-1.2 [facility] Comment on above: Performed By: #### C BCA, CMP #### [facility] ([id number]) [address] [place] [address] 30976 Calcium [Mass/Vol] 8.6 mg/dL Normal 8.5-10.5 [facility] Comment on above: Performed By: #### C BCA, CMP #### [facility] ([id number]) [address] [place] [address] 42779 Chloride [Moles/Vol] 105 mmol/L Normal 98-109 [facility] Comment on above: Performed By: #### C BCA, CMP #### [facility] ([id number]) [address] [place] [address] 76519 CO2 [Moles/Vol] 25 mmol/L Normal 22-32 [facility] Comment on above: Performed By: #### C BCA, CMP #### [facility] ([id number]) [address] [place] [address] 41258 Creatinine [Mass/Vol] 0.82 mg/dL Normal 0.40-1.00 [facility] Comment on above: Result Comment: METH OD TRACEABLE TO IDMS STANDARD Performed By: #### C BCA, CMP #### [facility] ([id number]) [address] [place] [address] 17247 eGFR (CKD-EPI) NON-RACE DEPENDENT >90 Normal >59 [facility] Comment on above: Result Comment: Reported eGFR is based on the CKD-EPI 2020 equation that does not use a race coefficient. Performed By: #### C BCA, CMP #### [facility] ([id number]) [address] [place] [address] 79150 Glucose [Mass/Vol] 87 mg/dL Normal 65-99 [facility] Comment on above: Performed By: #### C BCA, CMP #### [facility] ([id number]) [address] [place] [address] 19439 Potassium [Moles/Vol] 3.9 mmol/L Normal 3.5-5.0 [facility] Comment on above: Performed By: #### C BCA, CMP #### [facility] ([id number]) [address] [place] [address] 56122 Protein [Mass/Vol] 7.2 g/dL Normal 6.0-8.0 [facility] Comment on above: Performed By: #### C BCA, CMP #### [facility] ([id number]) [address] [place] [address] 40139 Sodium [Moles/Vol] 133 mmol/L Low 134-146 [facility] Comment on above: Performed By: #### C BCA, CMP #### [facility] ([id number]) [address] [place] [address] 33481 Urea nitrogen [Mass/Vol] 11 mg/dL Normal 5-23 [facility] Comment on above: Performed By: #### C BCA, CMP #### [facility] ([id number]) [address] [place] [address] 48952 Glucose Glucometer (BldC) [M ass/Vol]on 02-09-2024 Glucose [Mass/Vol] 106 mg/dL High 65-99 [facility] Glucose [Mass/Vol] 65 mg/dL Normal 65-99 [facility] URN MACROSCOPIC NURon 2023 BILIRUBIN INDER Negative Normal NEG [facility] Comment on above: Performed By: #### N UM #### [facility] ([id number]) [address] [place] [address] 29573 BLOOD/HGB INDER Negative Normal NEG [facility] Comment on above: Performed By: #### N UM #### [facility] ([id number]) [address] [place] [address] 43219 GLUCOSE INDER Negative Normal NEG [facility] Comment on above: Performed By: #### N UM #### [facility] ([id number]) [address] [place] [address] [place] [address] KETONES INDER Negative Normal NEG [facility] Comment on above: Performed By: #### N UM #### [facility] ([id number]) [address] [place] [address] [place] [address] LEUKOCYTE ESTERASE INDER Negative Normal NEG [facility] Comment on above: Performed By: #### N UM #### [facility] ([id number]) [address] [place] [address] 42814 NITRITE INDER Negative Normal NEG [facility] Comment on above: Performed By: #### N UM #### [facility] ([id number]) [address] [place] [address] 65581 PH INDER 7.0 Normal 5.0-8.5 [facility] Comment on above: Performed By: #### N UM #### [facility] ([id number]) [address] [place] [address] 82093 PROTEIN INDER Negative Normal NEG [facility] Comment on above: Performed By: #### N UM #### [facility] ([id number]) [address] [place] [address] 97312 SPECIFIC GRAVITY INDER 1.010 Normal 1.003-1.035 [facility] Comment on above: Performed By: #### N UM #### [facility] ([id number]) [address] [place] [address] 54330 UROBILINOGEN INDER 0.2 eu/dL Normal <1.1 [facility] Comment on above: Performed By: #### N UM #### [facility] ([id number]) [address] [place] [address] 05611 XR SACRUM COCCYX MIN 2 VWSon 01-28-2024 [...] Lang MD on 01/28/2024 8:46 PM Normal [facility] HCG ( test) Ql (U)o n 11-20-2023 Beta HCG ( test) Ql (U) Negative Normal NEG [facility] Comment on above: Performed By: #### 2 106-3 #### [facility] ([id number]) [address] [place] [address] 30887 SARS/FLU A+B/RSV by NAAT/Mol ecularon 11-20-2023 SARS/FLU [...] operators who are performing tests using either Escapio or Kalistick systems and is limited to laboratories that [...] repeat. Fact Sheet for Healthcare Providers: https://www.fda.gov/me yusuf/375741/download Fact Sheet for Patients: https://www.fda.gov/me yusuf/144853/download Normal [facility] Comment on above: Performed By: #### C OVFLR #### [facility] ([id number]) [address] [place] [address], [place] [address]-25- 2024 BILIRUBIN INDER Small Abnormal NEG [facility] Comment on above: Performed By: #### N UM #### [facility] ([id number]) [address] [place] [address] 08888 BLOOD/HGB INDER Trace Abnormal NEG [facility] Comment on above: Performed By: #### N UM #### [facility] ([id number]) [address] [place] [address] [place] [address] GLUCOSE INDER Negative Normal NEG [facility] Comment on above: Performed By: #### N UM #### [facility] ([id number]) [address] [place] [address] 89032 KETONES INDER Negative Normal NEG [facility] Comment on above: Performed By: #### N UM #### [facility] ([id number]) [address] [place] [address] [place] [address] LEUKOCYTE ESTERASE INDER Negative Normal NEG [facility] Comment on above: Performed By: #### N UM #### [facility] ([id number]) [address] [place] [address] 63255 NITRITE INDER Negative Normal NEG [facility] Comment on above: Performed By: #### N UM #### [facility] ([id number]) [address] [place] [address] 81145 PH INDER 5.5 Normal 5.0-8.5 [facility] Comment on above: Performed By: #### N UM #### [facility] ([id number]) [address] [place] [address] 28914 PROTEIN INDER Trace Abnormal NEG [facility] Comment on above: Performed By: #### N UM #### [facility] ([id number]) [address] [place] [address] [place] [address] SPECIFIC GRAVITY INDER >=1.030 Normal 1.003-1.035 [facility] Comment on above: Performed By: #### N UM #### [facility] ([id number]) [address] [place] [address] 19258 UROBILINOGEN INDER 0.2 eu/dL Normal <1.1 [facility] Comment on above: Performed By: #### N UM #### [facility] ([id number]) [address] [place] [address] 31213 PAP ACOG PANEL 2: 30 to 65on 10-31-2022 . . Normal [facility] Comment on above: Result Comment: Perf ormed at: WB Performed By: #### [id number] #### [facility] [address] [place] [address] Dr. Claudia Ramos Age Gdln ACOG Testing 30-65 Normal [facility] Comment on above: Performed By: #### 4 [id number] #### [facility] [address] [address] [address] Claudia Ramos DIAGNOSIS: Comment Normal [facility] Comment on above: Result Comment: NEGA TIVE FOR INTRAEPITHELIAL LESION OR MALIGNANCY. FUNGAL ORGANISMS MORPHOLOGICALLY CONSISTENT WITH [place] SPECIES ARE PRESENT. THIS SPECIMEN WAS RESCREENED PART OF OUR MANAGER REGISTRATION PROGRAM. Performed at: WB Performed By: #### 4 [id number] #### [facility] [address] [place] [address] Dr. Claudia Ramos HPV Aptima Negative Normal Negative [facility] Comment on above: Result Comment: This nucleic acid amplification test detects fourteen high-risk HPV types (16,18,31,33,35,39,45,51,52,56,58,59,66,68) without differentiation. Performed at: =G Performed By: #### 4 [id number] #### [facility] [address] [address] [address] Claudia Ramos HPV Genotype Reflex Comment Normal [facility] Comment on above: Result Comment: Crit eria not met, HPV Genotype not performed. Performed at: WB Performed By: #### 4 [id number] #### [facility] [address] [place] [address] Dr. Claudia Ramos Methodology: Comment Normal [facility] Comment on above: Result Comment: This liquid based ThinPrep(R) pap test was screened with the use of an image guided system. Performed at: WB Performed By: #### 4 [id number] #### [facility] [address] [place] [address] Dr. Claudia Ramos Note: Comment Normal [facility] Comment on above: Result Comment: The Pap smear is a screening test designed to aid in the detection of premalignant and malignant conditions of the uterine cervix. It is not a diagnostic procedure and should not be used as the sole means of detecting cervical cancer. Both false-positive and false-negative reports do occur. . Performed at: WB Performed By: #### 4 [id number] #### [facility] [address] [place] [address] Dr. Claudia Ramos Performed by: Comment Normal [facility] Comment on above: Result Comment: Matthias Ulloa, Manager Garage (ASCP) Performed at: [facility] Performed By: #### 4 [id number] #### [facility] [address] [place] [address] Dr. Claudia Ramos QC reviewed by: Comment Normal [facility] Comment on above: Result Comment: Yaakov Garcia, Manager Garage (ASCP) Performed at: WB Performed By: #### 4 [id number] #### [facility] [address] [place] [address] Dr. Claudia Ramos Specimen adequacy: Comment Normal [facility] Comment on above: Result Comment: Sati sfactory for evaluation. No endocervical component is identified. Performed at: WB Performed By: #### 4 [id number] #### [facility] [address] [place] [address] Dr. Claudia Ramos Vital Signs Date Time Vital Sign Value Performing Clinician Aarti joy 04-02-2024 08:140400 Body height 165.[address] 04-02-2024 08:140400 Body mass index (BMI) [Ratio] 24.36 kg/m2 [address] 04-02-2024 08:14-0400 Body temperature 98.1 [degF] Pfo 2 [facility] 04-02-2024 08:14-0400 Body weight 66.41 kg Pfo 2 [facility] 04-02-2024 08:14-0400 Diastolic blood pressure 52 mm[Hg] Pfo 2 [facility] 04-02-2024 08:14-0400 Heart rate 65 /min Pfo 2 [facility] 04-02-2024 08:14-0400 Respiratory rate 20 /min Pfo 2 [facility] 04-02-2024 08:14-0400 SaO2% (BldA) [Mass fraction] 100 % Pfo 2 [facility] 04-02-2024 08:14-0400 Systolic blood pressure 98 mm[Hg] Pfo 2 [facility] Encounters Encounter Date Encounter Type Care Provider Facility Start: 12-09-2024 End: 12-09-2024 Bamboo flowsheet [place] WORKMAN Work Phone: [facility] Start: 12-09-2024 End: 12-09-2024 Bamboo flowsdiana WORKMAN Work Phone: [facility] Start: 06-09-2024 End: 06-09-2024 ambulatory [place] KRAFT Not Available Start: 04-26-2024 End: 04-26-2024 Emergency department patient visit NO PCP NO PCP [facility] Start: 04-25-2024 End: 04-26-2024 Emergency department patient visit TAVIA ADEN [facility] Start: 04-02-2024 End: 04-02-2024 Admission to same day surgery center Pfo 2 [facility] Comment on above: Abnormal level of ho rmones in specimens from other organs, systems and tissues (Primary Dx); Hypoglycemia, unspecified; Bariatric surgery status; Abnormal level of hormones in specimens from oth org/tiss; Status post bariatric surgery Start: 04-02-2024 End: 04-02-2024 ambulatory ORLANDO JAIMES [facility] Start: 03-23-2024 End: 03-23-2024 Orders Only Yessy Kings [facility] Work Phone: [facility] Comment on above: Hypoglycemia, unspec ified (Primary Dx); Status post bariatric surgery; Abnormal level of hormones in specimens from other organs, systems and tissues Hypoglycemia, unspec ified (Primary Dx); Bariatric surgery status; Abnormal level of hormones in specimens from oth org/tiss Start: 03-08-2024 End: 03-08-2024 ambulatory DIONTE RANDOLPH Not Available Start: 02-12-2024 End: 02-12-2024 ambulatory FERDINANDJo-Ann Raven [facility] Start: 02-09-2024 End: 02-09-2024 Emergency department patient visit [facility] Start: 01-28-2024 End: 01-29-2024 Emergency department patient visit [facility] Start: 11-20-2023 End: 11-20-2023 Emergency department patient visit [facility] Start: 10-13-2023 End: 04-19-2024 ambulatory [facility] Start: 04-24-2023 ambulatory Dean Carbajal acility:[facility] Start: 10-17-2022 End: 10-18-2022 ambulatory [facility] Facility: Start: 09-10-2019 Patient encounter status Hillary Houser RN [facility] Work Phone: Procedures Date Procedure Procedure Detail Performing Clinician Start: 10-24-2021 Adult depression scr eening assessment Hillary Houser RN Plan of Treatment Date Care Activity Detail Author Start: 02-08-2025 Adult BMI Screening Adult BMI Screen ing [facility] Start: 02-08-2025 Tobacco Screening Tobacco Screening [facility] Start: 06-27-2024 Influenza vaccination Influenza Vacc ine [facility] Start: 10-24-2022 Depression Screening Depression Scre ening [facility] Start: 2010 DTaP,Tdap and Td Vaccines (1 - Tdap) DTaP,Tdap and Td Vaccines (1 - Tdap) [facility] End: 04-02-2025 Cortisol Cortisol Lab STAT Hypoglycemia, unspecified Abnormal level of hormones in specimens from other organs, systems and tissues Status post bariatric surgery Per Treatment Plan for 2 Occurrences starting 04/02/2024 until 04/02/2025 [employer] Work Phone: Comment on above: Per Treatment Plan f or 2 Occurrences starting 04/02/2024 until 04/02/2025 End: 03-23-2025 Cortisol [facility] Routine Hypoglycemia, unspecified Bariatric surgery status Abnormal level of hormones in specimens from oth org/tiss pre and 30 minutes post injection for 2 Occurrences starting 03/23/2024 until 03/23/2025 [employer] Work Phone: Comment on above: pre and 30 minutes p ost injection for 2 Occurrences starting 03/23/2024 until 03/23/2025 Cortisol [Mass/volum e] in Serum or Plasma Cortisol Lab STAT Hypoglycemia, unspecified Abnormal level of hormones in specimens from other organs, systems and tissues Status post bariatric surgery 04/02/2024 12:57 PM EDT [employer] [facility] Payers Date Payer Category Payer Private Health Insurance [id number] 2024 Private Health Insurance [facility] PLUS [id number] 2024-Present [phone] [address] [address] [place] [address] [id number] 2024 Private Health Insurance [id number] 2023 Medicaid (Managed Care) [facility] MEDICAID [id number] 2023 Self-pay 2003 Medicaid [place] [employer] [place] [id number] 2003-Present [phone] [address] [place] [address] [id number] 1991 Unknown [id number] 2.16.840.1.938630.3.579.2. 593 1991 Unknown [id number] 2.16.840.1.998209.3.579.2. 1286 1991 Unknown [id number] 2.16.840.1.995969.3.579.2. 1286 1991 Unknown [id number] 2.16.840.1.988089.3.579.2. 1286 1991 Unknown [id number] 2.16.840.1.355428.3.579.2. 1286 1991 Unknown [id number] 2.16.840.1.646848.3.579.2. 1286 1991 Unknown [id number] 2.16.840.1.954734.3.579.2. 1286 1991 Unknown [id number] 2.16.840.1.846164.3.579.2. 1286 1991 Unknown [id number] 2.16.840.1.680645.3.579.2. 1259 1991 Unknown [id number] 2.16.840.1.305573.3.579.2. 1259 1959 Private Health Insurance [id number] 1959 Unknown [id number] Unknown [id number] 2.16.840.1.518631.3.579.2. 531 Social History Date Type Detail Facility Start: 08-22-2022 End: 04-06-2023 Tobacco smoking status [facility] Never smoked tobacco [facility] Start: 06-09-2024 Alcoholic beverage intake Lifetime non-drinker (finding) [facility] Start: 12-06-2020 End: 03-08-2024 History of Social function [facility] Start: 12-06-2020 End: 03-08-2024 Tobacco use panel [facility] Start: 04-06-2023 Alcohol Comment Caffeine intake: non e [facility] Start: 1990 Sex assigned at Not on file P [facility] Start: 08-22-2022 Tobacco use and exposure Smokeless tobacco non-user [facility] Start: 02-09-2024 End: 04-02-2024 Alcoholic beverage intake Current drinker of alcohol (finding) [facility] Adolescent depressio n screening assessment 0 [facility] Start: 07-29-2022 Alcohol Comment maybe twice a month [facility] History of Present illness Narrative 04-02-2024 Jerri Moses RN - 04/02/2024 8:00 AM EDT Note Date & Type Note Facility 04-02-2024 History of Presen t illness Narrative The patient is here today for a cortisol stim test. The patient reports fasting since 11p the night before Vital signs are wnl Cortisol draw completed with IV start Corsyntropin admin via IVP The patient waited 30 min and 2nd Cortisol draw was completed via venipuncture Patient tolerated well, oral snack given and patient was discharged in stable condition documented in this encounter [facility] Evaluation note Note Date & Type Note Facility Evaluation note Diagnosis Abnormal level of hormones in specimens from other organs, systems and tissues- Primary Hypoglycemia, unspecified Bariatric surgery status Abnormal level of hormones in specimens from oth org/tiss Status post bariatric surgery Bariatric surgery status documented in this encounter [facility] Evaluation note Note Date & Type Note Facility Evaluation note Diagnosis Hypoglycemia, unspecified- Primary Status post bariatric surgery Bariatric surgery status Abnormal level of hormones in specimens from other organs, systems and tissues documented in this encounter [facility] Evaluation note Note Date & Type Note Facility Evaluation note Diagnosis Hypoglycemia, unspecified- Primary Bariatric surgery status Abnormal level of hormones in specimens from oth org/tiss documented in this encounter [facility] Instructions Note Date & Type Note Facility Instructions Not on filedocumented in this en counter [facility] Instructions Note Date & Type Note Facility Instructions Not on filedocumented in this en counter [facility] Summary Purpose Family History No Family History Records FoundNo Family History Records FoundNo Family History Records FoundNo Family History Records FoundNo Family History Records Found Advance Directives No Advanced Directives Records FoundNo Advanced Directives Records FoundNo Advanced Directives Records FoundNo Advanced Directives Records FoundNo Advanced Directives Records Found Additional Source Comments INFORMATION SOURCE (unrecogn ized section and content) DATE CREATED AUTHOR 01/25/2023 [facility] DATE CREATED AUTHOR AUTHOR'S ORGANIZ ATION 10/26/2023 [facility] DATE CREATED AUTHOR AUTHOR'S ORGANIZ ATION 04/27/2024 [facility] DATE CREATED AUTHOR AUTHOR'S ORGANIZ ATION 05/19/2024 [facility] DATE CREATED AUTHOR AUTHOR'S ORGANIZ ATION 12/11/2024 [facility]IC Reason for Visit (unrecogniz ed section and content) Reason Comments Outpatient Infusion Cortisol Stim Care Teams (unrecognized sec tion and content) 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 [employer] [facility]. provides no warranty or guarantee of the accuracy or completeness of information in this document.
[2024-12-28 14:08] LABS: Age Gdln ACOG Testing Note (.); HPV Aptima Negative (Negative); IGP, Aptima HPV, rfx 16/18,45 Note (.)
== END 2024-12-23 19:47 | disposition home or self-care (01) ==
LOC: LAB 19:46
PROVIDERS: PCP Physician Assistant; Visit Provider Physician Assistant
DX: Z01.419 Encounter for gynecological examination (general) (routine) without abnormal findings (principal)
CPT/HCPCS: 88175

== ENCOUNTER 2025-08-04 10:42 | Outpatient (OUT) | payer OTHER, SELFPAY ==
--- NOTE | 2025-08-04 10:52 | US_ITS ---
The [address] [address] Patient Name: TORSTEN SÁNCHEZ MRN: [id number] date: 1990 Sex: F Assigned Patient Location: [place] Current Patient Location: Accession/Order Number: [id number] Exam Date: 08/04/2025 10:53 Report Date: 08/04/2025 14:14 At the request of: MARIE ALEXANDER Procedure: US pelvis w/ transvaginal Pelvic ultrasound. Reason for exam: Left pelvic pain for one year Comparison: none Technique: Transabdominal imaging of the uterus and ovaries was performed. Transvaginal imaging of the uterus and ovaries was also obtained. Additional spectral Doppler analysis of the ovaries was also obtained. Findings: Uterus has been removed. Right ovary measures 2.5 x 2.9 x 2.3 cm. The left ovary measures 2.1 x 1.9 x 1.8 cm. No adnexal mass or cyst. No free fluid. US/US pelvis w/ transvaginal Impression: Unremarkable ovaries. No pelvic mass. Impression dictated by: Radha Cedeno Jr.OLuz 08/04/2025 2:14 PM Dictation Location: [place] [address] Electronically authenticated by: [id number] Y Date: 08/04/2025 14:14
--- OUTSIDE RECORDS SUMMARY | 2025-08-04 10:54 | XMS_ITS | CCD ---
Author Organization [facility] Care Team Providers Care Mixer And Blender Name Role Phone [facility] Primary Care Unavailable RANDOLPH ., DR RAPP Attending Unavailable RANDOLPH ., DR RAPP Consulting Unavailable RANDOLPH ., DR RAPP Admitting Unavailable Dean Grigsby Attending Unavailab le Dean Grigsby Admitting Unavailab le NON STAFF Primary Care Unavailable Unavailable Primary Care Provider Unavailabl e No Pcp, No Pcp Primary Care Provider Unavailabl e [place] KRAFT Attending Unavailable DIONTE DICKSON Attending Unavailable INIDA KRAFT Attending Unavailable David Lua DO Primary Care Provider David Lua DO Primary Care Provider DAVID LUA Attending Unavailable BADIKDAVID D Primary Care Unavailable BADIKDAVID Attending Unavailable BADIK, DAVID D Referring Unavailable BADIK, DAVID D Primary Care Unavailable NO PCP, NO PCP Primary Care Unavailable BADDAVID DUTTON D Attending Unavailable NO PCP, NO PCP Primary Care Unavailable TAVIA ADEN Attending Unavailable TAVIA ADEN Attending Unavailable TAVIA ADEN Referring Unavailable NO PCP, NO PCP Primary Care Unavailable NO PCP, NO PCP Primary Care Unavailable [address] [place] [address] Referring Unavailable NO PCP, NO PCP Primary Care Unavailable BADIK DAVID D Referring Unavailable BADIK, DAVID D Primary Care Unavailable BADIK, DAVID D Primary Care Unavailable LAKEISHA HUYNH Attending Unavailable BADIK, DAVID D Referring Unavailable BADIK, DAVID D Primary Care Unavailable BADIK, DAVID D Referring Unavailable BADIK, DAVID D Primary Care Unavailable BADIK, DAVID D Primary Care Unavailable Allergies Allergy Classification Reported Allergen(s) Allergy Type Date of Onset Reaction(s) Facility (4 sources) fentaNYL; Translations: [FENTANYL] Drug Allergy 07-28-20 21 [facility] (1 source) HYDROmorphone Drug Allergy 08-15-20 20 [facility] (4 sources) Naproxen; Translations: [NAPROXEN] Drug Allergy 05-27-20 15 [facility] (15 sources) fentaNYL Drug Allergy 05-23-20 21 Palpitations, Tachycardia, Other (See Comments), Other [facility] (18 sources) HYDROmorphone; Translations: [HYDROMORPHONE] Drug Allergy 05-23-20 21 Palpitations, Tachycardia [facility] (15 sources) Naproxen Drug Allergy 10-03-20 16 Palpitations [facility] (8 sources) Non-steroidal anti-inflammatory agent Drug Intolerance 07-15-[address] [facility] (9 sources) Non-steroidal anti-inflammatory agent; Translations: [NSAIDS (NON-STEROIDAL ANTI-INFLAMMATORY DRUG)] Propensity to adverse reactions to drug 07-15-20 22 [facility] Medications Current Medications Medication Drug Class(es) Dates Sig (Normalized) Sig (Original) acarbose 25 mg oral tablet (3 sources) alpha-Glucosidase Inhibitor acarbose (Precose) 25 MG tablet Take 25 mg by mouth in the morning and 25 mg at noon and 25 mg in the evening. Take with meals. Active busPIRone hydrochloride 10 mg oral tablet (3 sources) take 1 tablet by mouth in the morning busPIRone (Buspar) 10 MG tablet Take 10 mg by mouth in the morning and 10 mg before bedtime. Active Continuous Glucose Commercial Engineer (Dexcom G7 Commercial Engineer) device (3 sources) Continuous Glucose Commercial Engineer (Dexcom G7 Commercial Engineer) device Active Continuous Glucose Commercial Engineer (FreeStyle Debi 2 [place]) device (3 sources) Continuous Glucose Commercial Engineer (FreeStyle Debi 2 [place]) device Active Continuous Glucose Sensor (Dexcom G7 Sensor) misc (3 sources) Continuous Glucose Sensor (Dexcom G7 Sensor) misc Active Continuous Glucose Sensor (FreeStyle Debi 2 Sensor) misc (3 sources) Continuous Glucose Sensor (FreeStyle Debi 2 Sensor) misc Active DAILY-CASSIE, WITH FOLIC ACID, 400 mcg tablet (4 sources) Start: 12-14-2024 take 1 tablet by mouth in the morning DAILY-CASSIE, WITH FOLIC ACID, 400 mcg tablet Take 1 tablet by mouth in the morning. 12/14/2024 Active estrogens, conjugated (snf) 0.3 mg oral tablet (7 sources) Estrogen End: 01-04-2025 take 1 tablet by mouth once daily estrogens, conjugated, (Premarin) 0.3 MG tablet Take 0.3 mg by mouth Daily Take daily for 21 days then do not take for 7 days. Active fluconazole 150 mg oral tablet (5 sources) Azole Antifungal Start: 10-18-2024 take 1 tablet by mouth once, then take 1 tablet by mouth once fluconazole (Diflucan) 150 MG tablet Indications: Yeast infection TAKE 1 TABLET (150 MG) BY MOUTH 1 (ONE) TIME FOR 1 DOSE THIS IS A 1 TIME DOSE 1 tablet 1 10/18/2024 Active Multiple Vitamin (Daily-Cassie Multivitamin) tablet (3 sources) take 1 tablet by mouth once daily Multiple Vitamin (Daily-Cassie Multivitamin) tablet Take 1 tablet by mouth Daily Active omeprazole 20 mg delayed release oral capsule (10 sources) Proton Pump Inhibitor Start: 10-23-2021 take 1 capsule by mouth once daily omeprazole (PriLOSEC) [address] capsule Take 20 mg by mouth Daily 01/14/2025 Active rOPINIRole 0.25 mg oral tablet (2 sources) Nonergot Dopamine Agonist Start: 02-22-2025 take 1 tablet by mouth once daily rOPINIRole (REQUIP) 0.25 mg tablet Indications: Restless leg syndrome Take 1 tablet (0.25 mg total) by mouth nightly. 30 tablet 1 02/22/2025 Active Completed/Discontinued Medications Medication Drug Class(es) Dates Sig (Normalized) Sig (Original) ARIPiprazole 5 mg oral tablet (4 sources) Atypical Antipsychotic End: 01-04-2025 take 1 tablet by mouth in the morning ARIPiprazole (ABILIFY) 5 mg tablet Take 1 tablet (5 mg total) by mouth in the morning. 01/04/2025 Discontinued (Patient Stopped On Own) cholecalciferol 0.05 mg oral capsule (4 sources) Vitamin D Start: 12-17-2021 End: 01-04-2025 take 1 capsule by mouth once daily cholecalciferol, vitamin D3, 2,000 units capsule Take 1 capsule (2,000 Units total) by mouth daily. 30 capsule 11 12/17/2021 01/04/2025 Discontinued (Patient Never Started This Medication) cosyntropin (CORTROSYN) 1 mcg in sodium chloride [...] and adherence of Cortrosyn to IV tubing. Look-alike/sound- alike medication - verify indication for use. dicyclomine hydrochloride 20 mg oral tablet (8 sources) Anticholinergic Start: 08-22-2022 End: 01-04-2025 take 1 tablet by mouth in the morning, then take 1 tablet by mouth at bedtime dicyclomine (BENTYL) 20 mg tablet Take 1 tablet (20 mg total) by mouth in the morning and 1 tablet (20 mg total) before bedtime. 20 tablet 08/30/2023 01/04/2025 Discontinued (Therapy completed) lidocaine 0.05 mg/mg medicated patch (4 sources) Antiarrhythmic, Amide Local Anesthetic Start: 01-28-2024 End: 01-04-2025 apply 1 dose transdermal route once daily, then apply 1 dose transdermal route every twelve hours lidocaine (LIDODERM) 5 % Place 1 patch on the skin daily. Remove & Discard patch within 12 hours or as directed by 15 patch 01/28/2024 01/04/2025 Discontinued (Therapy completed) multivitamin (THERAGRAN) tablet (4 sources) Start: 10-17-2021 End: 01-04-2025 take 1 tablet by mouth once daily multivitamin (THERAGRAN) tablet Take 1 tablet by mouth daily. 10/17/2021 01/04/2025 Discontinued (Therapy completed) Start: 10-17-2021 take 1 tablet by alessandra once daily multivitamin (THERAGRAN) tablet Take 1 tablet by mouth daily. 10/17/2021 Active ondansetron 4 mg disintegrating oral tablet (4 sources) Serotonin-3 Receptor Antagonist Start: 11-20-2023 End: 01-04-2025 take 1 tablet by mouth every eight hours as needed for nausea ondansetron ODT (ZOFRAN ODT) 4 mg disintegrating tablet Dissolve 1 tablet (4 mg total) on tongue every 8 (eight) hours as needed for nausea for up to 10 doses. 10 tablet 11/20/2023 01/04/2025 Discontinued (Therapy completed) vitamin b12 1 mg sublingual tablet (4 sources) Vitamin B12 Start: 12-17-2021 End: 01-04-2025 take 1 tablet under the tongue once daily cyanocobalamin (VITAMIN B12) 1,000 mcg tablet, sublingual Place 1 tablet (1,000 mcg total) under the tongue daily. 30 tablet 11 12/17/2021 01/04/2025 Discontinued (Therapy completed) Problems Active Problems Problem Classification Problem Date Documented Date Episodic/Chronic Alcohol-related disorders (3 sources) Alcohol abuse, uncomplicated; Translations: [Alcohol intoxication] Onset: 10-13-2023 Chronic Anxiety disorders (4 sources) Post-traumatic stress disorder, chronic; Translations: [Generalized anxiety disorder] Onset: 10-13-2023 Chronic Blindness and vision defects (7 sources) Visual impairment; Translations: [Unspecified visual loss] 09-08-2019 Chronic Esophageal disorders (4 sources) Gastroesophageal reflux disease; Translations: [Gastro-esophageal reflux disease without esophagitis] Onset: 01-04-2025 01-04-2025 Chronic Mood disorders (2 sources) Major depressive disorder, single episode, mild; Translations: [Major depressive disorder. single episode. mild] Onset: 10-13-2023 Chronic Nonspecific chest pain (12 sources) Chest pain; Translations: [Chest pain, unspecified] Onset: 02-18-2025 Resolved: 07-06-2020 07-06-2020 Episodic Other ear and sense organ disorders (7 sources) Hearing loss; Translations: [Unspecified hearing loss, unspecified ear] Onset: 06-06-2020 06-06-2020 Chronic Other endocrine disorders (10 sources) Hypoglycemia; Translations: [Hypoglycemia, unspecified] Onset: 03-23-2024 04-02-2024 Chronic Other female genital disorders (2 sources) Pruritus of vagina; Translations: [Other specified noninflammatory disorders of vagina] 08-02-2025 Episodic Other female genital disorders (2 sources) Vaginal discharge; Translations: [Other specified noninflammatory disorders of vagina] 08-02-2025 Episodic Other female genital disorders (2 sources) Pain in female pelvis; Translations: [Pelvic pain in female] 08-02-2025 Episodic Other hereditary and degenerative nervous system conditions (3 sources) Restless legs; Translations: [Restless legs syndrome] Onset: 02-22-2025 02-22-2025 Chronic Other hereditary and degenerative nervous system conditions (1 source) Restless legs syndrome; Translations: [Restless legs syndrome] Onset: 02-22-2025 Chronic Other lower respiratory disease (1 source) Cough Onset: 04-17-2025 Episodic Other nervous system disorders (7 sources) Bilateral tarsal tunnel syndrome; Translations: [Tarsal tunnel syndrome, bilateral lower limbs] Onset: 10-24-2021 10-24-2021 Chronic Other nervous system disorders (1 source) Paresthesia of lower extremity; Translations: [Paresthesia of skin] 01-04-2025 Episodic Other nervous system disorders (1 source) Abnormal gait; Translations: [Unspecified abnormalities of gait and mobility] 01-04-2025 Episodic Other upper respiratory infections (1 source) Acute upper respiratory infection, unspecified; Translations: [Acute upper respiratory infection, unspecified] Onset: 04-17-2025 Episodic Unclassified (1 source) Establish Care Onset: 01-04-2025 Unclassified (1 source) Low blood sugar Onset: 04-25-2024 Past or Other Problems Problem Classification Problem Date Documented Da te Episodic/Chronic Administrative/social admission (1 source) Encounter for pre-employment examination; Translations: [Encounter for pre-employment examination] Onset: 05-04-2024 Episodic Alcohol-related disorders (1 source) Alcohol use, unspecified with intoxication, unspecified; Translations: [Alcohol use, unspecified with intoxication, unspecified] Onset: 04-25-2024 Episodic Asthma (7 sources) Asthma; Translations: [Unspecified asthma, uncomplicated] Resolved: 07-06-2020 07-06-2020 Chronic Immunizations and screening for infectious disease (1 source) Encounter for screening for human papillomavirus (HPV); Translations: [ENC SCREENING HUMAN PAPILLOMAVIRUS] Onset: 10-24-2022 Episodic Mood disorders (7 sources) Mood disorders Onset: 10-24-2021 Resolved: 01-04-2025 10-24-2021 Other gastrointestinal disorders (12 sources) History of bariatric surgical procedure; Translations: [Bariatric surgery status] Onset: 03-23-2024 04-02-2024 Episodic Other gastrointestinal disorders (2 sources) Bariatric surgery status; Translations: [Bariatric surgery status] Onset: 01-04-2025 Episodic Other lower respiratory disease (7 sources) Dyspnea; Translations: [Shortness of breath] Resolved: 01-04-2025 09-08-2019 Episodic Other nervous system disorders (7 sources) Lesion of ulnar nerve, left upper limb; Translations: [Lesion of ulnar nerve] Onset: 10-24-2021 Resolved: 12-17-2021 12-17-2021 Chronic Other nervous system disorders (7 sources) Bilateral carpal tunnel syndrome; Translations: [Carpal tunnel syndrome, bilateral upper limbs] Onset: 10-24-2021 Resolved: 12-17-2021 12-17-2021 Chronic Other nervous system disorders (10 sources) Paresthesia; Translations: [Paresthesia of skin] Onset: 10-24-2021 10-24-2021 Episodic Other nervous system disorders (2 sources) Paresthesia of skin; Translations: [Paresthesia of skin] Onset: 10-24-2021 Episodic Other nervous system disorders (2 sources) Unspecified abnormalities of gait and mobility; Translations: [Unspecified abnormalities of gait and mobility] Onset: 01-04-2025 Episodic Other screening for suspected conditions (not mental disorders or infectious disease) (15 sources) Encounter for screening for malignant neoplasm of cervix; Translations: [Hormone level - finding] Onset: 10-17-2022 Episodic Otitis media and related conditions (7 sources) Dysfunction of right eustachian tube; Translations: [Unspecified Eustachian tube disorder, right ear] Onset: 06-06-2020 Resolved: 06-19-2020 06-19-2020 Episodic Spondylosis; intervertebral disc disorders; other back problems (4 sources) Degeneration of lumbar intervertebral disc; Translations: [Degeneration of lumbar intervertebral disc] Onset: 01-04-2025 Resolved: 01-04-2025 01-04-2025 Chronic Results Test Name Value Interpretation Reference Range Facility XR CHEST 2 VWSon 04-17-2025 XR CHEST 2 VWS XR CHEST 2 VWS HISTORY: A 34-year-old female with a history of the cough for a few days. EXAM/TECHNIQUE: CHEST: PA and lateral views COMPARISON: Comparison is made with prior chest examination of 02/18/2025. FINDINGS: Both lungs and costophrenic angles are clear. There is no evidence of pulmonary infiltrate or acute pulmonary pathology. The cardiac silhouette is within normal limits. The trachea is in midline. The mediastinum is otherwise unremarkable. The hemidiaphragms are normal in position. There are surgical clips at the GE junction and evidence of prior cholecystectomy. The bony rib cage is intact. IMPRESSION: * No evidence of pulmonary infiltrate, acute pulmonary pathology or significant interval change. Finalized by Mane Martinez MD on 04/17/2025 5:05 PM Normal [facility] XR HIPS BILAT W OR WO PELVIS 2 VWSon 02-25-2025 XR HIPS BILAT W OR WO PELVIS 2 VWS XR HIPS BILAT W OR WO PELVIS 2 VWS AP VIEW PELVIS AND 2 VIEWS OF EACH HIP HISTORY: Paresthesias, pain COMPARISON: 01/03/2014 FINDINGS: No fracture. No malalignment. No degenerative changes. Hip joint spaces are preserved. No destructive change. IMPRESSION: No osseous abnormalities in the pelvis/hips. Finalized by Sree Fink MD on 02/25/2025 1:44 PM Normal [facility] XR SPINE LUMB COMP INCL BEND 6+ VWSon 02-25-2025 XR SPINE LUMB COMP INCL BEND 6+ VWS XR SPINE LUMB COMP INCL BEND 6+ VWS 6 views lumbar spine HISTORY: Paresthesias COMPARISON: 03/02/2019 FINDINGS: Lumbar vertebral body heights and alignment are preserved. Intervertebral disc heights are maintained. Mild multilevel endplate degenerative changes. No pathologic change in alignment between flexion and extension. IMPRESSION: * Mild endplate degenerative changes in the lumbar spine. Finalized by Sree Fink MD on 02/25/2025 1:46 PM Normal [facility] CBC AND AUTO DIFFon 02-19-20 25 ABSOLUTE BASOPHIL 0.0 X10E9/L Normal 0.0-0.2 [facility] Comment on above: Performed By: #### C BCA, 3040-3, 5643-2, CMP #### [facility] ([id number]) [address] [place] [address], [place] [address] ABSOLUTE NEUTROPHIL 4.8 X10E9/L Normal 1.5-6.6 [facility] Comment on above: Performed By: #### Mj LUNDY, 3, 5642-2, CMP #### [facility] ([id number]) [address] [place] [address] 83388 Basophils/100 WBC (Bld) 0.5 % Normal [facility] Comment on above: Performed By: #### Mj LUNDY, 3039-12, 2, CMP #### [facility] ([id number]) [address] [place] [address] 33774 Eosinophils (Bld) [#/Vol] 0.1 10*3/uL Normal 0.0-0.4 [facility] Comment on above: Performed By: #### Mj LUNDY, 3039-12, 5642-11, CMP #### [facility] ([id number]) [address] [place] [address] 65125 Eosinophils/100 WBC (Bld) 0.8 % Normal [facility] Comment on above: Performed By: #### Mj LUNDY, 3039-12, 5642-11, CMP #### [facility] ([id number]) [address] [place] [address] 16222 Erythrocyte distribution width (RBC) [Ratio] 13.0 % Normal 11.5-15.0 [facility] Comment on above: Performed By: #### Mj LUNDY, 3039-12, 2, CMP #### [facility] ([id number]) [address] [place] [address] 27650 Hematocrit (Bld) [Volume fraction] 37.8 % Normal 35-47 [facility] Comment on above: Performed By: #### Mj LUNDY, 3, 5642-2, CMP #### [facility] ([id number]) [address] [place] [address] 42433 Hemoglobin (Bld) [Mass/Vol] 13.1 g/dL Normal 11.7-15.5 [facility] Comment on above: Performed By: #### Mj LUNDY, 3, 5642-2, CMP #### [facility] ([id number]) [address] [place] [address] 40900 Lymphocytes (Bld) [#/Vol] 2.1 10*3/uL Normal 1.0-3.5 [facility] Comment on above: Performed By: #### Mj LUNDY, 3, 5642-2, CMP #### [facility] ([id number]) [address] [place] [address] 46514 Lymphocytes/100 WBC (Bld) 28.0 % Normal [facility] Comment on above: Performed By: #### Mj LUNDY, 3, 5642-2, CMP #### [facility] ([id number]) [address] [place] [address] 15178 MCH (RBC) [Entitic mass] 30.8 pg Normal 27-34 [facility] Comment on above: Performed By: #### Mj LUNDY, 3, 5642-2, CMP #### [facility] ([id number]) [address] [place] [address] 31736 MCHC (RBC) [Mass/Vol] 34.7 g/dL Normal 32-36 [facility] Comment on above: Performed By: #### Mj LUNDY, 3, 5642-2, CMP #### [facility] ([id number]) [address] [place] [address] 36877 MCV (RBC) [Entitic vol] 89 fL Normal 80-100 [facility] Comment on above: Performed By: #### Mj LUNDY, 3, 43-2, CMP #### [facility] ([id number]) [address] [place] [address] 52806 Monocytes (Bld) [#/Vol] 0.5 10*3/uL Normal 0-0.9 [facility] Comment on above: Performed By: #### Mj LUNDY, 3, 5642-2, CMP #### [facility] ([id number]) [address] [place] [address] 58830 Monocytes/100 WBC (Bld) 6.7 % Normal [facility] Comment on above: Performed By: #### Mj LUNDY, 3, 5642-2, CMP #### [facility] ([id number]) [address] [place] [address] 36634 Neutrophils/100 WBC (Bld) 64.0 % Normal [facility] Comment on above: Performed By: #### Mj LUNDY, 3039-12, 5642-2, CMP #### [facility] ([id number]) [address] [place] [address] [place] [address] Platelet mean volume (Bld) [Entitic vol] 9.5 fL Normal 7-12 [facility] Comment on above: Performed By: #### Mj LUNDY, 3039-12, 5642-2, CMP #### [facility] ([id number]) [address] [place] [address] 44168 Platelets (Bld) [#/Vol] 282 10*3/uL Normal 150-450 [facility] Comment on above: Performed By: #### Mj LUNDY, 3, 5642-2, CMP #### [facility] ([id number]) [address] [place] [address] 68721 RBC COUNT 4.25 X10E12/L Normal 3.80-5.20 [facility] Comment on above: Performed By: #### Mj LUNDY, 3, 43-2, CMP #### [facility] ([id number]) [address] [place] [address] 13199 WBC (Bld) [#/Vol] 7.5 10*3/uL Normal 4.0-11.0 [facility] Comment on above: Performed By: #### Mj LUNDY, 0-3, 5643-2, CMP #### [facility] ([id number]) [address] [place] [address] 25174 COMPREHENSIVE METABOLIC PANE Kameron 02-18-2025 Albumin [Mass/Vol] 4.6 g/dL Normal 3.2-5.3 [facility] Comment on above: Performed By: #### Mj LUNDY, 0-3, 5643-2, CMP #### [facility] ([id number]) [address] [place] [address] 51644 ALP [Catalytic activity/Vol] 60 U/L Normal 39-130 [facility] Comment on above: Performed By: #### Mj LUNDY, 3039-3, 5643-2, CMP #### [facility] ([id number]) [address] [place] [address] 41060 ALT [Catalytic activity/Vol] 15 U/L Normal 0-31 [facility] Comment on above: Performed By: #### Mj LUNDY, 0-3, 5643-2, CMP #### [facility] ([id number]) [address] [place] [address] 03598 Anion gap [Moles/Vol] 11 mmol/L Normal 5-15 [facility] Comment on above: Performed By: #### Mj LUNDY, 0-3, 5643-2, CMP #### [facility] ([id number]) [address] [place] [address] 09149 AST [Catalytic activity/Vol] 21 U/L Normal 0-41 [facility] Comment on above: Performed By: #### Mj LUNDY, 0-3, 5643-2, CMP #### [facility] ([id number]) [address] [place] [address] 40252 Bilirubin [Mass/Vol] 0.6 mg/dL Normal 0.3-1.2 [facility] Comment on above: Performed By: #### C NIKKIE, 3040-3, 5643-2, CMP #### [facility] ([id number]) [address] [place] [address] 25559 Calcium [Mass/Vol] 9.2 mg/dL Normal 8.5-10.5 [facility] Comment on above: Performed By: #### C NIKKIE, 3040-3, 5643-2, CMP #### [facility] ([id number]) [address] [place] [address] 93351 Chloride [Moles/Vol] 106 mmol/L Normal 98-109 [facility] Comment on above: Performed By: #### C NIKKIE, 03, 43-2, CMP #### [facility] ([id number]) [address] [place] [address] 57380 CO2 [Moles/Vol] 22 mmol/L Normal 22-32 [facility] Comment on above: Performed By: #### Mj LUNDY, 0-3, 5643-2, CMP #### [facility] ([id number]) [address] [place] [address] 18642 Creatinine [Mass/Vol] 0.80 mg/dL Normal 0.40-1.00 [facility] Comment on above: Result Comment: METH OD TRACEABLE TO IDMS STANDARD Performed By: #### C NIKKIE, 3040-3, 5643-2, CMP #### [facility] ([id number]) [address] [place] [address] 76964 eGFR (CKD-EPI) NON-RACE DEPENDENT >90 Normal >59 [facility] Comment on above: Result Comment: Reported eGFR is based on the CKD-EPI 2020 equation that does not use a race coefficient. Performed By: #### Mj BCA, 3040-3, 5643-2, CMP #### [facility] ([id number]) [address] [place] [address] 51385 Glucose [Mass/Vol] 89 mg/dL Normal 65-99 [facility] Comment on above: Performed By: #### C NIKKIE, 3040-3, 5643-2, CMP #### [facility] ([id number]) [address] [place] [address] 25459 Potassium [Moles/Vol] 3.7 mmol/L Normal 3.5-5.0 [facility] Comment on above: Performed By: #### Mj LUNDY, 3040-3, 5643-2, CMP #### [facility] ([id number]) [address] [place] [address] 80769 Protein [Mass/Vol] 7.3 g/dL Normal 6.0-8.0 [facility] Comment on above: Performed By: #### Mj LUNDY, 0-3, 5643-2, CMP #### [facility] ([id number]) [address] [place] [address] 59576 Sodium [Moles/Vol] 139 mmol/L Normal 134-146 [facility] Comment on above: Performed By: #### Mj LUNDY, 3040-3, 5643-2, CMP #### [facility] ([id number]) [address] [place] [address] 46490 Urea nitrogen [Mass/Vol] 14 mg/dL Normal 5-23 [facility] Comment on above: Performed By: #### Mj LUNDY, 3040-3, 5643-2, CMP #### [facility] ([id number]) [address] [place] [address] 71369 Fibrin D-dimer DDU (PPP) [Ma ss/Vol]on 02-18-2025 D DIMER 159 ng/mL DDU Normal <255 [facility] Comment on above: Result Comment: Results <255 ng/mL DDU: The presence of a VTE can safely be excluded with a negative D-Dimer result and Wells score. A negative result doesn't exclude the possibility of DIC. The test be repeated along with other diagnostic tests if the patient's symptoms persist or worsen. [email or web address] Performed By: #### C NIKKIE, 3040-3, 5643-2, CMP #### [facility] ([id number]) [address] [place] [address] 68214 PROTIME AND INRon 02-18-2025 INR Coag (PPP) [Relative time] 1.0 {INR} Normal 0.9-1.2 [facility] Comment on above: Performed By: #### Mj LUNDY, 3040-3, 5643-2, CMP #### [facility] ([id number]) [address] [place] [address] 69909 PT Coag (PPP) [Time] 11.7 s Normal 9.8-13.2 [facility] Comment on above: Result Comment: NEW REFERENCE RANGE Performed By: #### Mj LUNDY, 3040-3, 5643-2, CMP #### [facility] ([id number]) [address] [place] [address] 12511 Troponin I.cardiac High sens itivity method [Mass/Vol]on 02-18-2025 TROPONIN I, HIGH SENSITIVITY <2 Normal <16 [facility] Comment on above: Performed By: #### Mj LUNDY, 3040-3, 5643-2, CMP #### [facility] ([id number]) [address] [place] [address] 85900 XR CHEST 1 VWon 02-18-2025 XR CHEST 1 VW XR CHEST 1 VW HISTORY: Chest pain COMPARISON: Chest x-ray 08/02/2021 FINDINGS: Portable AP upright view of the chest was performed. Heart size is normal. Lungs demonstrate no significant airspace consolidation or vascular congestion. There is no pneumothorax or pleural effusion. Surgical clips overlie the epigastric region and right upper quadrant. IMPRESSION: * No acute abnormality. Finalized by Deon Newman MD on 02/18/2025 7:00 PM Normal [facility] aPTT Coag (PPP) [Time]on aPTT Coag (Bld) [Time] 28 s Normal 26-37 [facility] Comment on above: Result Comment: NEW REFERENCE RANGE Performed By: #### Mj LUNDY, 3040-3, 5643-2, CMP #### [facility] ([id number]) [address] [place] [address] 45364 CBC AND AUTO DIFFon 01-13-20 ABSOLUTE BASOPHIL 0.0 X10E9/L Normal 0.0-0.2 [facility] Comment on above: Performed By: #### Mj LUNDY, 0-3, 5643-2, CMP #### [facility] ([id number]) [address] [place] [address] 61370 ABSOLUTE NEUTROPHIL 3.0 X10E9/L Normal 1.5-6.6 [facility] Comment on above: Performed By: #### Mj LUNDY, 3040-3, 5643-2, CMP #### [facility] ([id number]) [address] [place] [address] 75935 Basophils/100 WBC (Bld) 0.8 % Normal [facility] Comment on above: Performed By: #### Mj LUNDY, 3040-3, 5643-2, CMP #### [facility] ([id number]) [address] [place] [address] 54714 Eosinophils (Bld) [#/Vol] 0.1 10*3/uL Normal 0.0-0.4 [facility] Comment on above: Performed By: #### Mj LUNDY, 3040-3, 5643-2, CMP #### [facility] ([id number]) [address] [place] [address] Eosinophils/100 WBC (Bld) 1.7 % Normal [facility] Comment on above: Performed By: #### Mj LUNDY, 3, 5642-2, CMP #### [facility] ([id number]) [address] [place] [address] 26948 Erythrocyte distribution width (RBC) [Ratio] 13.9 % Normal 11.5-15.0 [facility] Comment on above: Performed By: #### Mj LUNDY, 3039-12, 5642-2, CMP #### [facility] ([id number]) [address] [place] [address] 25598 Hematocrit (Bld) [Volume fraction] 38.8 % Normal 35-47 [facility] Comment on above: Performed By: #### Mj LUNDY, 3039-12, 2, CMP #### [facility] ([id number]) [address] [place] [address] 37191 Hemoglobin (Bld) [Mass/Vol] 13.0 g/dL Normal 11.7-15.5 [facility] Comment on above: Performed By: #### Mj LUNDY, 3039-12, 2, CMP #### [facility] ([id number]) [address] [place] [address] 59716 Lymphocytes (Bld) [#/Vol] 1.8 10*3/uL Normal 1.0-3.5 [facility] Comment on above: Performed By: #### Mj LUNDY, 3, 5642-2, CMP #### [facility] ([id number]) [address] [place] [address] 31808 Lymphocytes/100 WBC (Bld) 33.5 % Normal [facility] Comment on above: Performed By: #### Mj LUNDY, 3, 5642-2, CMP #### [facility] ([id number]) [address] [place] [address] 59778 MCH (RBC) [Entitic mass] 29.6 pg Normal 27-34 [facility] Comment on above: Performed By: #### Mj LUNDY, 0-3, 5643-2, CMP #### [facility] ([id number]) [address] [place] [address] 97665 MCHC (RBC) [Mass/Vol] 33.5 g/dL Normal 32-36 [facility] Comment on above: Performed By: #### Mj LUNDY, 3039-3, 43-2, CMP #### [facility] ([id number]) [address] [place] [address] 21231 MCV (RBC) [Entitic vol] 88 fL Normal 80-100 [facility] Comment on above: Performed By: #### Mj LUNDY, 3, 5642-2, CMP #### [facility] ([id number]) [address] [place] [address] 26968 Monocytes (Bld) [#/Vol] 0.4 10*3/uL Normal 0-0.9 [facility] Comment on above: Performed By: #### Mj LUNDY, 3039-3, 43-2, CMP #### [facility] ([id number]) [address] [place] [address] 42385 Monocytes/100 WBC (Bld) 7.3 % Normal [facility] Comment on above: Performed By: #### Mj LUNDY, 3, 5642-2, CMP #### [facility] ([id number]) [address] [place] [address] 06612 Neutrophils/100 WBC (Bld) 56.7 % Normal [facility] Comment on above: Performed By: #### Mj LUNDY, 3039-3, 43-2, CMP #### [facility] ([id number]) [address] [place] [address] 92726 Platelet mean volume (Bld) [Entitic vol] 8.9 fL Normal 7-12 [facility] Comment on above: Performed By: #### Mj LUNDY, 0-3, 5643-2, CMP #### [facility] ([id number]) [address] [place] [address] 12593 Platelets (Bld) [#/Vol] 209 10*3/uL Normal 150-450 [facility] Comment on above: Performed By: #### Mj LUNDY, 0-3, 43-2, CMP #### [facility] ([id number]) [address] [place], [place] [address] RBC COUNT 4.39 X10E12/L Normal 3.80-5.20 [facility] Comment on above: Performed By: #### Mj LUNDY, 0-3, 5643-2, CMP #### [facility] ([id number]) [address] [place] [address] 11046 WBC (Bld) [#/Vol] 5.2 10*3/uL Normal 4.0-11.0 [facility] Comment on above: Performed By: #### Mj LUNDY, 0-3, 5643-2, CMP #### [facility] ([id number]) [address] [place] [address] 45441 COMPREHENSIVE METABOLIC PANE Kameron 01-12-2025 Albumin [Mass/Vol] 4.6 g/dL Normal 3.2-5.3 [facility] Comment on above: Performed By: #### Mj LUNDY, 0-3, 5643-2, CMP #### [facility] ([id number]) [address] [place] [address] 08868 ALP [Catalytic activity/Vol] 58 U/L Normal 39-130 [facility] Comment on above: Performed By: #### Mj LUNDY, 0-3, 5643-2, CMP #### [facility] ([id number]) [address] [place] [address] 20841 ALT [Catalytic activity/Vol] 12 U/L Normal 0-31 [facility] Comment on above: Performed By: #### Mj LUNDY, 3040-3, 5643-2, CMP #### [facility] ([id number]) [address] [place] [address] 93786 Anion gap [Moles/Vol] 9 mmol/L Normal 5-15 [facility] Comment on above: Performed By: #### Mj LUNDY, 3040-3, 5643-2, CMP #### [facility] ([id number]) [address] [place] [address] 94861 AST [Catalytic activity/Vol] 19 U/L Normal 0-41 [facility] Comment on above: Performed By: #### Mj LUNDY, 3040-3, 5643-2, CMP #### [facility] ([id number]) [address] [place] [address] 66250 Bilirubin [Mass/Vol] 0.6 mg/dL Normal 0.3-1.2 [facility] Comment on above: Performed By: #### Mj LUNDY, 3040-3, 5643-2, CMP #### [facility] ([id number]) [address] [place] [address] 00670 Calcium [Mass/Vol] 9.6 mg/dL Normal 8.5-10.5 [facility] Comment on above: Performed By: #### C NIKKIE, 3040-3, 5643-2, CMP #### [facility] ([id number]) [address] [place] [address] 45642 Chloride [Moles/Vol] 104 mmol/L Normal 98-109 [facility] Comment on above: Performed By: #### Mj BCA, 3040-3, 5643-2, CMP #### [facility] ([id number]) [address] [place] [address] 80468 CO2 [Moles/Vol] 26 mmol/L Normal 22-32 [facility] Comment on above: Performed By: #### C NIKKIE, 0-3, 5643-2, CMP #### [facility] ([id number]) [address] [place] [address] 75497 Creatinine [Mass/Vol] 0.75 mg/dL Normal 0.40-1.00 [facility] Comment on above: Result Comment: METH OD TRACEABLE TO IDMS STANDARD Performed By: #### C NIKKIE, 3, 56-2, CMP #### [facility] ([id number]) [address] [place] [address] 70147 eGFR (CKD-EPI) NON-RACE DEPENDENT >90 Normal >59 [facility] Comment on above: Result Comment: Reported eGFR is based on the CKD-EPI 2020 equation that does not use a race coefficient. Performed By: #### C NIKKIE, 3, 5642-2, CMP #### [facility] ([id number]) [address] [place] [address] 13800 Glucose [Mass/Vol] 82 mg/dL Normal 65-99 [facility] Comment on above: Performed By: #### Mj LUNDY, 3, 56-2, CMP #### [facility] ([id number]) [address] [place] [address] 46641 Potassium [Moles/Vol] 4.2 mmol/L Normal 3.5-5.0 [facility] Comment on above: Performed By: #### C NIKKIE, 3039-3, 43-2, CMP #### [facility] ([id number]) [address] [place] [address] 03803 Protein [Mass/Vol] 7.1 g/dL Normal 6.0-8.0 [facility] Comment on above: Performed By: #### Mj LUNDY, 3040-3, 5643-2, CMP #### [facility] ([id number]) [address] [place] [address] 12337 Sodium [Moles/Vol] 139 mmol/L Normal 134-146 [facility] Comment on above: Performed By: #### Mj LUNDY, 3040-3, 5643-2, CMP #### [facility] ([id number]) [address] [place] [address] 38070 Urea nitrogen [Mass/Vol] 16 mg/dL Normal 5-23 [facility] Comment on above: Performed By: #### Mj LUNDY, 0-3, 5643-2, CMP #### [facility] ([id number]) [address] [place] [address] 10398 Folate [Mass/Vol]on 01-13-20 25 FOLIC ACID 21.8 ng/mL Normal >5.8 [facility] Comment on above: Result Comment: NEW REFERENCE RANGE Performed By: #### Mj LUNDY, 0-3, 5643-2, CMP #### [facility] ([id number]) [address] [place] [address] 74560 THYROID PROFILEon 01-12-2025 Free T4 [Mass/Vol] 0.87 ng/dL Normal 0.61-1.60 [facility] Comment on above: Performed By: #### Mj LUNDY, 0-3, 5643-2, CMP #### [facility] ([id number]) [address] [place] [address] 29430 TSH 0.91 uIU/mL Normal 0.49-4.67 [facility] Comment on above: Performed By: #### Mj LUNDY, 3040-3, 5643-2, CMP #### [facility] ([id number]) [address] [place] [address] 21471 VITAMIN B12on 01-12-2025 Cobalamin (Vitamin B12) [Mass/Vol] 567 pg/mL Normal 180-914 [facility] Comment on above: Performed By: #### C BCA, 3040-3, 5643-2, CMP #### [facility] ([id number]) [address] [place] [address] Vitamin D+Metabolites [Mass/ Vol]on 01-12-2025 VITAMIN D 25 HYD TOT 31.9 ng/mL Normal 30-100 [facility] Comment on above: Result Comment: Vitamin D status 25 [place] Vitamin D Deficiency <20 ng/mL Insufficiency 20-29 ng/mL Sufficiency 30-100 ng/mL Toxicity >100 ng/mL NOTE: A pediatric reference range has not been established by the stone operator of this kit. The [place] [employer] recommends a Vitamin D level of = or >20ng/mL in infants and children. Performed By: #### C BCA, 3040-3, 5643-2, CMP #### [facility] ([id number]) [address] [place] [address] 39644 IGP,APTIMA HPV,AGE GDLNon AGE GDLN ACOG TESTING Note . [facility] Comment on above: TESTS RESULT FLAG U NITS REF RANGE LAB Clinician Provided Cytology Information Source.............Vagina No. of containers..01 ThinPrep Vial Age Algo ACOG Betty... FLAG LEGEND: L-Low Normal,H-High Normal,LL-Alert Low,HH-Alert High <-Panic Low,>-Panic High,A-Abnormal,AA-Critical Abnormal Performed at: 01 =[address] [address] Marisa Roy MD, HPV APTIMA Negative Negative [facility] Comment on above: This nucleic acid am plification test detects fourteen high- risk HPV types (16,18,31,33,35,39,45,51,52,56,58,59,66,68) without differentiation. Performed at: =[address] [id number] Customer Engineer: Marisa Roy MD, Phone: [phone] Performed at: [facility] [id number] Customer Engineer: Marisa Roy MD, Phone: [phone] IGP, APTIMA HPV, RFX 16/18,[address] [facility] Comment on above: TESTS RESULT FLAG UN ITS REF RANGE LAB DIAGNOSIS: 02 NEGATIVE FOR INTRAEPITHELIAL LESION OR MALIGNANCY. Specimen adequacy: 02 Satisfactory for evaluation. Performed by: 02 Michelle Correa, Mechanics Handyman (ASCP) . 02 Note: Note 02 The Pap smear is a screening test designed to aid in the detection of premalignant and malignant conditions of the uterine cervix. It is not a diagnostic procedure and should not be used as the sole means of detecting cervical cancer. Both false-positive and false-negative reports do occur. Test Methodology: Note 02 This liquid based ThinPrep(R) pap test was screened with the use of an image guided system. HPV Genotype Reflex Note 02 Criteria not met, HPV Genotype not performed. FLAG LEGEND: L-Low Normal,H-High Normal,LL-Alert Low,HH-Alert High <-Panic Low,>-Panic High,A-Abnormal,AA-Critical Abnormal Performed at: 02 [address] [facility] [address] [address] Marisa Roy MD, [facility] MeV IgG IA Ql (S)on 05-04-20 24 RUBEOLA AB SCREEN 2.5 AI High <0.9 [facility] Comment on above: Result Comment: POSI TIVE: Antibody(IgG) detected. Indicates previous exposure to rubeola virus and immunity. Performed By: #### 6 476-6, 8014-3, 95393-5, 66368-0 #### [facility] ([id number]) [address], [address] [place] [address] MuV IgG IA Ql (S)on 05-04-20 24 MUMPS VIRUS IgG 3.8 AI High <0.9 [facility] Comment on above: Result Comment: Interpretation-------- <0.9 Negative 0.9 - 1.0 Equivocal >1.0 Positive Performed By: #### 6 476-6, 8014-3, 60900-1, 84970-1 #### [facility] ([id number]) [address], [address] [place] [address] Rubella virus IgG Qn (S)on 0 05-04-2024 RUBELLA IgG 17 IU/mL Normal [facility] Comment on above: Result Comment: Interpretation-------- <8 NEGATIVE-considered Not Immune 8-9 EQUIVOCAL-consider retesting with new specimen >9 POSITIVE-considered Immune Performed By: #### 6 476-6, 8014-3, 62912-7, 22917-1 #### [facility] ([id number]) [address] [place] [address], [address] [place] [address] VZV IgG IA Ql (S)on 05-04-20 24 VARICELLA IgG 3.4 AI High <0.9 [facility] Comment on above: Result Comment: Interpretation-------- <0.9 Negative 0.9 - 1.0 Equivocal >1.0 Positive Performed By: #### 6 476-6, 8014-3, 53091-1, 78170-5 #### [facility] ([id number]) [facility] [address], [address] [place] [address] CBC AND AUTO DIFFon 04-25-20 24 ABSOLUTE BASOPHIL 0.0 X10E9/L Normal 0.0-0.2 [facility] Comment on above: Performed By: ###Danis Barker BCA, 3040-3, 5643-2, CMP #### [facility] ([id number]) [address] [place] [address], [place] [address] ABSOLUTE NEUTROPHIL 2.4 X10E9/L Normal 1.5-6.6 [facility] Comment on above: Performed By: #### Mj LUNDY, 3039-12, 56-2, CMP #### [facility] ([id number]) [address] [place] [address] 44835 Basophils/100 WBC (Bld) 0.6 % Normal [facility] Comment on above: Performed By: #### Mj LUNDY, 3039-12, 5642-2, CMP #### [facility] ([id number]) [address] [place] [address] 71712 Eosinophils (Bld) [#/Vol] 0.0 10*3/uL Normal 0.0-0.4 [facility] Comment on above: Performed By: #### Mj LUNDY, 3039-12, 5642-11, CMP #### [facility] ([id number]) [address] [place] [address] 62501 Eosinophils/100 WBC (Bld) 0.6 % Normal [facility] Comment on above: Performed By: #### Mj LUNDY, 3039-12, 5642-11, CMP #### [facility] ([id number]) [address] [place] [address] 57268 Erythrocyte distribution width (RBC) [Ratio] 13.2 % Normal 11.5-15.0 [facility] Comment on above: Performed By: #### Mj LUNDY, 3039-12, 5642-2, CMP #### [facility] ([id number]) [address] [place] [address] 88110 Hematocrit (Bld) [Volume fraction] 35.3 % Normal 35-47 [facility] Comment on above: Performed By: #### Mj LUNDY, 3039-12, 5642-2, CMP #### [facility] ([id number]) [address] [place] [address] 18963 Hemoglobin (Bld) [Mass/Vol] 12.3 g/dL Normal 11.7-15.5 [facility] Comment on above: Performed By: #### Mj LUNDY, 3, 56-2, CMP #### [facility] ([id number]) [address] [place] [address] 15451 Lymphocytes (Bld) [#/Vol] 1.8 10*3/uL Normal 1.0-3.5 [facility] Comment on above: Performed By: #### Mj LUNDY, 3039, 5642-2, CMP #### [facility] ([id number]) [address] [place] [address] 83189 Lymphocytes/100 WBC (Bld) 39.6 % Normal [facility] Comment on above: Performed By: #### Mj LUNDY, 3039-12, 5642-11, CMP #### [facility] ([id number]) [address] [place] [address] 80500 MCH (RBC) [Entitic mass] 30.9 pg Normal 27-34 [facility] Comment on above: Performed By: #### Mj LUNDY, 3039-12, 5642-2, CMP #### [facility] ([id number]) [address] [place] [address] 57443 MCHC (RBC) [Mass/Vol] 34.9 g/dL Normal 32-36 [facility] Comment on above: Performed By: #### Mj LUNDY, 3039-12, 5642-2, CMP #### [facility] ([id number]) [address] [place] [address] 43336 MCV (RBC) [Entitic vol] 89 fL Normal 80-100 [facility] Comment on above: Performed By: #### Mj LUNDY, 3039-12, 5642-2, CMP #### [facility] ([id number]) [address] [place] [address] 02649 Monocytes (Bld) [#/Vol] 0.3 10*3/uL Normal 0-0.9 [facility] Comment on above: Performed By: #### Mj LUNDY, 0-3, 5643-2, CMP #### [facility] ([id number]) [address] [place] [address] 55775 Monocytes/100 WBC (Bld) 6.9 % Normal [facility] Comment on above: Performed By: #### Mj LUNDY, 0-3, 5643-2, CMP #### [facility] ([id number]) [address] [place] [address] 37672 Neutrophils/100 WBC (Bld) 52.3 % Normal [facility] Comment on above: Performed By: #### Mj LUNDY, 0-3, 43-2, CMP #### [facility] ([id number]) [address] [place] [address] 01307 Platelet mean volume (Bld) [Entitic vol] 8.4 fL Normal 7-12 [facility] Comment on above: Performed By: #### Mj LUNDY, 0-3, 43-2, CMP #### [facility] ([id number]) [address] [place] [address] 57725 Platelets (Bld) [#/Vol] 243 10*3/uL Normal 150-450 [facility] Comment on above: Performed By: #### Mj LUNDY, 0-3, 5643-2, CMP #### [facility] ([id number]) [address] [place] [address] 16337 RBC COUNT 3.99 X10E12/L Normal 3.80-5.20 [facility] Comment on above: Performed By: #### Mj LUNDY, 0-3, 5643-2, CMP #### [facility] ([id number]) [address] [place] [address] 81807 WBC (Bld) [#/Vol] 4.6 10*3/uL Normal 4.0-11.0 [facility] Comment on above: Performed By: #### C NIKKIE, 0-3, 5643-2, CMP #### [facility] ([id number]) [address] [place] [address] 99447 COMPREHENSIVE METABOLIC PANE Kameron 04-25-2024 Albumin [Mass/Vol] 4.4 g/dL Normal 3.2-5.3 [facility] Comment on above: Performed By: #### Mj LUNDY, 0-3, 5643-2, CMP #### [facility] ([id number]) [address] [place] [address] 03303 ALP [Catalytic activity/Vol] 60 U/L Normal 39-130 [facility] Comment on above: Performed By: #### Mj LUNDY, 0-3, 5643-2, CMP #### [facility] ([id number]) [address] [place] [address] 08770 ALT [Catalytic activity/Vol] 18 U/L Normal 0-31 [facility] Comment on above: Performed By: #### Mj LUNDY, 0-3, 5643-2, CMP #### [facility] ([id number]) [address] [place] [address] 40405 Anion gap [Moles/Vol] 10 mmol/L Normal 5-15 [facility] Comment on above: Performed By: #### Mj LUNDY, 0-3, 5643-2, CMP #### [facility] ([id number]) [address] [place] [address] 49901 AST [Catalytic activity/Vol] 29 U/L Normal 0-41 [facility] Comment on above: Performed By: #### Mj LUNDY, 0-3, 5643-2, CMP #### [facility] ([id number]) [address] [place] [address] 25445 Bilirubin [Mass/Vol] 0.7 mg/dL Normal 0.3-1.2 [facility] Comment on above: Performed By: #### C NIKKIE, 0-3, 5643-2, CMP #### [facility] ([id number]) [address] [place] [address] 44079 Calcium [Mass/Vol] 8.7 mg/dL Normal 8.5-10.5 [facility] Comment on above: Performed By: #### Mj LUNDY, 0-3, 5643-2, CMP #### [facility] ([id number]) [address] [place] [address] 76898 Chloride [Moles/Vol] 105 mmol/L Normal 98-109 [facility] Comment on above: Performed By: #### Mj LUNDY, 03, 5643-2, CMP #### [facility] ([id number]) [address] [place] [address] 66040 CO2 [Moles/Vol] 21 mmol/L Low 22-32 [facility] Comment on above: Performed By: #### Mj LUNDY, 0-3, 5643-2, CMP #### [facility] ([id number]) [address] [place] [address] 61662 Creatinine [Mass/Vol] 0.72 mg/dL Normal 0.40-1.00 [facility] Comment on above: Result Comment: METH OD TRACEABLE TO IDMS STANDARD Performed By: #### C NIKKIE, 3, 43-2, CMP #### [facility] ([id number]) [address] [place] [address] 36910 eGFR (CKD-EPI) NON-RACE DEPENDENT >90 Normal >59 [facility] Comment on above: Result Comment: Reported eGFR is based on the CKD-EPI 2020 equation that does not use a race coefficient. Performed By: #### C NIKKIE, 3040-3, 5643-2, CMP #### [facility] ([id number]) [address] [place] [address] 94490 Glucose [Mass/Vol] 88 mg/dL Normal 65-99 [facility] Comment on above: Performed By: #### Mj LUNDY, 3040-3, 5643-2, CMP #### [facility] ([id number]) [address] [place] [address] 62702 Potassium [Moles/Vol] 3.9 mmol/L Normal 3.5-5.0 [facility] Comment on above: Performed By: #### Mj LUNDY, 3040-3, 5643-2, CMP #### [facility] ([id number]) [address] [place] [address] 04129 Protein [Mass/Vol] 7.4 g/dL Normal 6.0-8.0 [facility] Comment on above: Performed By: #### Mj LUNDY, 3040-3, 5643-2, CMP #### [facility] ([id number]) [address] [place] [address] 82946 Sodium [Moles/Vol] 136 mmol/L Normal 134-146 [facility] Comment on above: Performed By: #### Mj LUNDY, 3040-3, 5643-2, CMP #### [facility] ([id number]) [address] [place] [address] 15128 Urea nitrogen [Mass/Vol] 12 mg/dL Normal 5-23 [facility] Comment on above: Performed By: #### Mj LUNDY, 3040-3, 5643-2, CMP #### [facility] ([id number]) [address] [place] [address] ABDOMEN AND PELVIS W CONT on [...] as low as reasonably achievable. Finalized by David Pruitt MD on 04/25/2024 5:45 AM Normal [facility] Ethanol [Mass/Vol]on 024 ETHANOL 0.19 g/dL High 0.00-0.08 [facility] Comment on above: Result Comment: This report is intended for use in clinical monitoring or management of patients. Performed By: #### C NIKKIE, 3040-3, 5643-2, CMP #### [facility] [facility] ([id number]) [address] [place] [id number] Glucose Glucometer (BldC) [M ass/Vol]on 04-25-2024 Glucose [Mass/Vol] 82 mg/dL Normal 65-99 [facility] LIPASEon 04-25-2024 Lipase [Catalytic activity/Vol] 47 U/L High 17-40 [facility] Comment on above: Performed By: #### C NIKKIE, 3040-3, 5643-2, CMP #### [facility] ([id number]) [address] [place] [id number] PAP ACOG PANEL 2: 30 to 65on 10-31-2022 . . Normal [facility] Comment on above: Result Comment: Perf ormed at: WB Performed By: #### [id number] #### [facility] [address] [place] [address] Dr. Claudia Ramos Age Gdln ACOG Testing 30-65 Normal [facility] Comment on above: Performed By: #### [id number] #### [facility] [address] [place] [address] Dr. Claudia Ramos DIAGNOSIS: Comment Normal [facility] Comment on above: Result Comment: NEGA TIVE FOR INTRAEPITHELIAL LESION OR MALIGNANCY. FUNGAL ORGANISMS MORPHOLOGICALLY CONSISTENT WITH CHEYENNE SPECIES ARE PRESENT. THIS SPECIMEN WAS RESCREENED PART OF OUR BARREL WASHER MACHINE PROGRAM. Performed at: WB Performed By: #### [id number] #### [facility] [address] [place] [address] Dr. Claudia Ramos HPV Aptima Negative Normal Negative [facility] Comment on above: Result Comment: This nucleic acid amplification test detects fourteen high-risk HPV types (16,18,31,33,35,39,45,51,52,56,58,59,66,68) without differentiation. Performed at: =G Performed By: #### [id number] #### [facility] [address] [place] [address] Dr. Claudia Ramos HPV Genotype Reflex Comment Normal [facility] Comment on above: Result Comment: Crit eria not met, HPV Genotype not performed. Performed at: WB Performed By: #### [id number] #### [facility] [address] [place] [address] Dr. Claudia Ramos Methodology: Comment Normal [facility] Comment on above: Result Comment: This liquid based ThinPrep(R) pap test was screened with the use of an image guided system. Performed at: WB Performed By: #### [id number] #### [facility] [address] [place] [address] Dr. Claudia Ramos Note: Comment Normal [facility] Comment on above: Result Comment: The Pap smear is a screening test designed to aid in the detection of premalignant and malignant conditions of the uterine cervix. It is not a diagnostic procedure and should not be used as the sole means of detecting cervical cancer. Both false-positive and false-negative reports do occur. . Performed at: WB Performed By: #### [id number] #### [facility] [address] [place] [address] Dr. Claudia Ramos Performed by: Comment Normal [facility] Comment on above: Result Comment: Matthias Ulloa, Mechanics Handyman (ASCP) Performed at: [facility] Performed By: #### [id number] #### [facility] [address] [place], [place] [address] Dr. Claudia Ramos QC reviewed by: Comment Normal [facility] Comment on above: Result Comment: Yaakov Garcia, Mechanics Handyman (ASCP) Performed at: WB Performed By: #### [id number] #### [facility] [address] [place], [place] [address] Dr. Claudia Ramos Specimen adequacy: Comment Normal [facility] Comment on above: Result Comment: Sati sfactory for evaluation. No endocervical component is identified. Performed at: WB Performed By: #### [id number] #### [facility] [address] [place], [place] [address] Dr. Claudia Ramos Vital Signs Date Time Vital Sign Value Performing Clinician Facility 08-02-2025 14:52-0400 Body height 165.1 cm Skye Barnes ACCOUNT CLASSIFICATION CLERK Work Phone: [facility] 08-02-2025 14:52-0400 Body mass index (BMI) [Ratio] 23.96 kg/m2 Skye Barnes ACCOUNT CLASSIFICATION CLERK Work Phone: [facility] 08-02-2025 14:52-0400 Body weight 65.32 kg Skye Barnes ACCOUNT CLASSIFICATION CLERK Work Phone: [facility] 08-02-2025 14:52-0400 Diastolic blood pressure 52 mm[Hg] Skye Barnes ACCOUNT CLASSIFICATION CLERK Work Phone: [facility] 08-02-2025 14:52-0400 Systolic blood pressure 108 mm[Hg] Skye Cameron ACCOUNT CLASSIFICATION CLERK Work Phone: [facility] 02-22-2025 10:05-0400 Body mass index (BMI) [Ratio] 24.79 kg/m2 David Lua DO Work Phone: [facility] 02-22-2025 10:05-0400 Body temperature 98.1 [degF] David Lua DO Work Phone: [facility] 02-22-2025 10:05-0400 Body weight 69.67 kg David Lua DO Work Phone: [facility] 02-22-2025 10:05-0400 Diastolic blood pressure 72 mm[Hg] David Lua DO Work Phone: [facility] 02-22-2025 10:05-0400 Heart rate 61 /min David Lua DO Work Phone: [facility] 02-22-2025 10:05-0400 SaO2% (BldA) [Mass fraction] 98 % David Lua DO Work Phone: [facility] 02-22-2025 10:05-0400 Systolic blood pressure 100 mm[Hg] David Lua DO Work Phone: [facility] 01-18-2025 10:10-0400 Body height 71.4 cm David Lua DO Work Phone: [facility] 01-18-2025 10:10-0400 Body mass index (BMI) [Ratio] 140.23 kg/m2 David Lua DO Work Phone: [facility] 01-18-2025 10:10-0400 Body temperature 98.29 [degF] David Lua DO Work Phone: [facility] 01-18-2025 10:10-0400 Body weight 71.49 kg David Lua DO Work Phone: [facility] 01-18-2025 10:10-0400 Diastolic blood pressure 77 mm[Hg] David Lua DO Work Phone: [facility] 01-18-2025 10:10-0400 Heart rate 62 /min David Lua DO Work Phone: [facility] 01-18-2025 10:10-0400 SaO2% (BldA) [Mass fraction] 99 % David Lua DO Work Phone: [facility] 01-18-2025 10:10-0400 Systolic blood pressure 122 mm[Hg] David Lua DO Work Phone: [facility] 01-04-2025 10:42-0400 Body height 167.6 cm David Lua DO Work Phone: [facility] 01-04-2025 10:42-0400 Body mass index (BMI) [Ratio] 25.42 kg/m2 David Lua DO Work Phone: [facility] 01-04-2025 10:42-0400 Body temperature 98.1 [degF] David Lua DO Work Phone: [facility] 01-04-2025 10:42-0400 Body weight 71.4 kg David Lua DO Work Phone: [facility] 01-04-2025 10:42-0400 Diastolic blood pressure 70 mm[Hg] David Lua DO Work Phone: [facility] 01-04-2025 10:42-0400 Heart rate 61 /min David Lua DO Work Phone: [facility] [employer] 01-04-2025 10:42-0400 SaO2% (BldA) [Mass fraction] 99 % David Lua DO Work Phone: [facility] 01-04-2025 10:42-0400 Systolic blood pressure 112 mm[Hg] David Lua DO Work Phone: [facility] 12-23-2024 14:16-0500 Body mass index (BMI) [Ratio] 24.4 kg/m2 [place] [employer] Work Phone: [facility] 12-23-2024 14:16-0500 Body weight 70.67 kg [place] [employer] Work Phone: [facility] 12-23-2024 14:16-0500 Diastolic blood pressure 68 mm[Hg] [place] WORK[employer] Work Phone: [facility] 12-23-2024 14:16-0500 Systolic blood pressure 106 mm[Hg] [place] WORK[employer] Work Phone: [facility] 04-02-2024 08:14-0400 Body height 165.1 cm Pfo 2 [facility] 04-02-2024 08:14-0400 Body mass index (BMI) [Ratio] 24.36 kg/m2 Pfo 2 [facility] 04-02-2024 08:14-0400 Body temperature 98.1 [degF] Pfo 2 [facility] 04-02-2024 08:14-0400 Body weight 66.41 kg Pfo 2 [facility] 04-02-2024 08:14-0400 Diastolic blood pressure 52 mm[Hg] Pfo 2 [facility] 04-02-2024 08:14-0400 Heart rate 65 /min Pfo 2 [facility] 04-02-2024 08:14-0400 Respiratory rate 20 /min Pfo 2 [facility] 04-02-2024 08:14-0400 SaO2% (BldA) [Mass fraction] 100 % Pfo 2 [facility] 04-02-2024 08:14-0400 Systolic blood pressure 98 mm[Hg] Pfo 2 [facility] Encounters Encounter Date Encounter Type Care Provider Facility Start: 08-02-2025 End: 08-02-2025 Office outpatient visit 15 minutes Skye Barnes NP [facility] Comment on above: Vaginal discharge (P rimary Dx); Vaginal itching; Pelvic pain in female Start: 08-02-2025 End: 08-02-2025 Bamboo flowsheet Skye Barnes NP Work Phone: [facility] Start: 08-02-2025 End: 08-02-2025 Bamboo flowsheet Skye Barnes NP Work Phone: [facility] Start: 04-17-2025 End: 04-17-2025 Emergency department patient visit DAVID LUA [facility] Start: 02-28-2025 End: 02-28-2025 Telephone encounter Jane English CNA [facility] Comment on above: Results Start: 02-22-2025 End: 02-22-2025 Office outpatient visit 15 minutes David Lua DO Work Phone: [facility] Comment on above: Paresthesias (Primar y Dx); Restless leg syndrome; Intermittent chest pain Start: 02-22-2025 End: 02-22-2025 ambulatory [facility] Start: 02-18-2025 End: 02-18-2025 Emergency department patient visit [facility] Start: 01-18-2025 End: 01-18-2025 Office outpatient visit 15 minutes David Lua DO Work Phone: [facility] Comment on above: Paresthesias (Primar y Dx) Start: 01-18-2025 End: 01-18-2025 ambulatory [facility] Start: 01-12-2025 End: 01-12-2025 ambulatory [facility] Start: 01-04-2025 End: 01-04-2025 ambulatory NO PCP NO PCP [facility] Start: 01-04-2025 End: 01-04-2025 Office outpatient new 30 minutes David Lua DO Work Phone: [facility] Comment on above: Bilateral leg parest hesia (Primary Dx); Gait disturbance; Status post bariatric surgery Start: 12-23-2024 End: 12-23-2024 Bamboo flowsheet [place] [employer] Work Phone: [facility] Start: 12-23-2024 End: 12-28-2024 Bamboo flowsheet [employer] Work Phone: [facility] Start: 12-23-2024 End: 12-28-2024 Clinisync Result Encounter [place] [employer] Work Phone: [facility] External [facility] Unsolicited Start: 12-23-2024 End: 12-23-2024 Patient encounter procedure [place] [employer] Work Phone: [facility] Work Phone: Start: 12-23-2024 End: 12-23-2024 Periodic preventive med est patient 18-39 yrs [place] [employer] Work Phone: [facility] Comment on above: Well woman exam with routine gynecological exam Start: 12-23-2024 End: 12-23-2024 ambulatory [place] Not Available Start: 12-09-2024 End: 12-09-2024 Bamboo flowsheet [place] [employer] Work Phone: [facility] Start: 12-09-2024 End: 12-09-2024 Bamboo flowsheet [place] WORK[employer] Work Phone: [facility] Start: 06-09-2024 End: 06-09-2024 ambulatory [place] [employer] Not Available Start: 05-04-2024 End: 05-04-[address] Start: 04-26-2024 End: 04-26-2024 Emergency department patient visit NO PCP NO PCP [facility] Start: 04-25-2024 End: 04-26-2024 Emergency department patient visit TAVIA ADEN [facility] Start: 04-02-2024 End: 04-02-2024 Admission to same day surgery center Pfo 2 Iva Chris [facility] Comment on above: Abnormal level of ho rmones in specimens from other organs, systems and tissues (Primary Dx); Hypoglycemia, unspecified; Bariatric surgery status; Abnormal level of hormones in specimens from ot org/tiss; Status post bariatric surgery Start: 04-02-2024 End: 04-02-2024 ambulatory Pfo Infusion Chair 2 Iva Chris [facility] Start: 03-23-2024 End: 03-23-2024 Orders Only Yessy Ku [facility] Work Phone: Iva Chris [facility] Comment on above: Hypoglycemia, unspec ified (Primary Dx); Status post bariatric surgery; Abnormal level of hormones in specimens from other organs, systems and tissues Hypoglycemia, unspec ified (Primary Dx); Bariatric surgery status; Abnormal level of hormones in specimens from oth org/tiss Start: 03-08-2024 End: 03-08-2024 ambulatory DIONTE DICKSON Not Available Start: 10-13-2023 End: 04-19-2024 ambulatory [place] Start: 04-24-2023 ambulatory Dean Carbajal acility:[facility] Start: 10-17-2022 End: 10-18-2022 ambulatory [facility] Facility: Start: 09-10-2019 End: 01-04-2025 Patient encounter status Hillary Houser RN [facility] Work Phone: Procedures Date Procedure Procedure Detail Performing Clinician Start: 01-18-2025 Follow-up visit Follow-up DAVID LUA Start: 01-04-2025 Adult depression screening assessment David Lua DO Work Phone: Start: 12-23-2024 IGP,APTIMA HPV,AGE GDLN [place] WORK[employer] Work Phone: Start: 10-24-2021 Adult depression screening assessment Hillary Houser RN Plan of Treatment Date Care Activity Detail Author Start: 05-04-2034 DTaP,Tdap and Td Vaccines (8 - Td or Tdap) DTaP,Tdap and Td Vaccines (8 - Td or Tdap) [facility] Start: 02-22-2026 Adult BMI Screening Adult BMI Screen ing [facility] Start: 02-22-2026 Tobacco Screening Tobacco Screening [facility] Start: 01-18-2026 Adult BMI Screening Adult BMI Screen ing [facility] Start: 01-18-2026 Tobacco Screening Tobacco Screening [facility] Start: 01-04-2026 Adult BMI Screening Adult BMI Screen ing [facility] Start: 01-04-2026 Depression Screening Depression Scre ening [facility] Start: 01-04-2026 Tobacco Screening Tobacco Screening [facility] Start: 08-24-2025 End: 08-24-2025 Patient encounter procedure 08/24/2025 10:30 AM EDT Office Visit [facility] [address] [place] [id number] Skye Barnes, ACCOUNT CLASSIFICATION CLERK [address] [place] [address] [facility] Start: 08-02-2025 End: 08-02-2025 Patient encounter procedure 08/02/2025 2:50 PM EDT Office Visit [facility] [address] [place] [address] Skye Barnes, ACCOUNT CLASSIFICATION CLERK [address] [place] [address] Arrived [facility] Comment on above: Arrived Start: 08-02-2025 End: 01-31-2026 US Pelvis US Pelvis w/ TV Imaging Routine Pelvic pain in female Expected: 08/02/2025, Expires: 01/31/2026 [facility] Comment on above: Expected: 08/02/2025 , Expires: 01/31/2026 Start: 06-27-2025 Influenza vaccination Influenza Vacc ine [facility] Start: 02-22-2025 End: 02-22-2026 Echo complete W/O contrast Echo complete W/O contrast Echocardiography Routine Intermittent chest pain Expected: 02/22/2025, Expires: 02/22/2026 [facility] Work Phone: Comment on above: Expected: 02/22/2025 , Expires: 02/22/2026 Start: 02-22-2025 End: 02-22-2025 Patient encounter procedure 02/22/2025 10:00 AM EDT Office Visit [facility] [address] [place] [address] [address] [address] David Lua, [address] [facility] [facility] [address] [place] [address] [facility] Start: 02-08-2025 Adult BMI Screening Adult BMI Screen ing [facility] Start: 02-08-2025 Tobacco Screening Tobacco Screening [facility] Start: 01-18-2025 End: 01-18-2026 XR Hip - bilateral 2 Views X-ray hips bilateral with or without pelvis 2 views Imaging Routine Paresthesias Expected: 01/18/2025, Expires: 01/18/2026 [facility] Comment on above: Expected: 01/18/2025 , Expires: 01/18/2026 Start: 01-18-2025 End: 01-18-2026 XR Lumbar spine Views W right bending and W left bending X-ray spine lumbar complete including flexion and extension 6+ views Imaging Routine Paresthesias Expected: 01/18/2025, Expires: 01/18/2026 [facility] Comment on above: Expected: 01/18/2025 , Expires: 01/18/2026 Start: 01-18-2025 End: 01-18-2025 Patient encounter procedure 01/18/2025 10:00 AM EDT Office Visit [facility] [address] [place] [address] [address] [address] David Lua, [address] [place] [address] [facility] Start: 12-23-2024 End: 12-23-2024 Patient encounter procedure 12/23/2024 2:00 PM EST Office Visit [facility] [address] [place] [address] India Kraft PA [address] [place] [address] Arrived [facility] Comment on above: Arrived Start: 06-27-2024 Influenza vaccination Influenza Vacc ine [facility] Start: 10-24-2022 Depression Screening Depression Scre ening [facility] Start: 2010 DTaP,Tdap and Td Vaccines (1 - Tdap) DTaP,Tdap and Td Vaccines (1 - Tdap) [facility] Start: 09-07-2009 Adult BMI Follow Up Plan Adult BMI F ollow Up Plan [employer] End: 01-04-2026 CBC W Auto Differential panel - Blood CBC auto differential Lab Routine Bilateral leg paresthesia Gait disturbance Status post bariatric surgery 1 Occurrences starting 01/04/2025 until 01/04/2026 [employer] Work Phone: Comment on above: 1 Occurrences starti ng 01/04/2025 until 01/04/2026 CHLAMYDIA TRACHOMATI S (GENITO/STI) CHLAMYDIA TRACHOMATIS (GENITO/STI) Lab Routine Vaginal itching Vaginal discharge Ordered: 08/02/2025 [facility] Work Phone: Comment on above: Ordered: 08/02/2025 End: 01-04-2026 Comprehensive metabolic 2000 panel - Serum or Plasma Comprehensive metabolic panel Lab Routine Bilateral leg paresthesia Gait disturbance Status post bariatric surgery 1 Occurrences starting 01/04/2025 until 01/04/2026 [employer] Comment on above: 1 Occurrences starti ng 01/04/2025 until 01/04/2026 End: 04-02-2025 Cortisol Cortisol Lab STAT Hypoglycemia, unspecified Abnormal level of hormones in specimens from other organs, systems and tissues Status post bariatric surgery Per Treatment Plan for 2 Occurrences starting 04/02/2024 until 04/02/2025 [facility] Work Phone: Comment on above: Per Treatment Plan f or 2 Occurrences starting 04/02/2024 until 04/02/2025 End: 03-23-2025 Cortisol Cortisol Lab Routine Hypoglycemia, unspecified Bariatric surgery status Abnormal level of hormones in specimens from oth org/tiss pre and 30 minutes post injection for 2 Occurrences starting 03/23/2024 until 03/23/2025 [facility] Work Phone: Comment on above: pre and 30 minutes p ost injection for 2 Occurrences starting 03/23/2024 until 03/23/2025 Cortisol [Mass/volum e] in Serum or Plasma Cortisol Lab STAT Hypoglycemia, unspecified Abnormal level of hormones in specimens from other organs, systems and tissues Status post bariatric surgery 04/02/2024 12:57 PM EDT [employer] End: 01-04-2026 Cyanocobalamin vitamin b-12 Vitamin B12 Lab Routine Bilateral leg paresthesia Gait disturbance Status post bariatric surgery 1 Occurrences starting 01/04/2025 until 01/04/2026 [facility] Comment on above: 1 Occurrences starti ng 01/04/2025 until 01/04/2026 Cytology Cervical or vaginal smear or scraping study Pap Smear Pathology and Cytology Routine Well woman exam with routine gynecological exam Ordered: 12/23/2024 [facility] [employer] Work Phone: Comment on above: Ordered: 12/23/2024 End: 01-18-2026 [facility] Routine Paresthesias 1 Occurrences starting 01/18/2025 until 01/18/2026 [facility] Work Phone: Comment on above: 1 Occurrences starti ng 01/18/2025 until 01/18/2026 End: 01-04-2026 Folate Folate Lab Routine Bilateral leg paresthesia Gait disturbance Status post bariatric surgery 1 Occurrences starting 01/04/2025 until 01/04/2026 [facility] Comment on above: 1 Occurrences starti ng 01/04/2025 until 01/04/2026 Human papilloma viru s DNA [Presence] in Unspecified specimen by Probe with amplification HPV DNA probe, amplified Microbiology Routine Well woman exam with routine gynecological exam Ordered: 12/23/2024 [facility] Comment on above: Ordered: 12/23/2024 Neisseria gonorrhoea e DNA [Presence] in Unspecified specimen by ALVERTO with probe detection Neisseria gonorrhea DNA probe, direct Lab Routine Vaginal itching Vaginal discharge Ordered: 08/02/2025 [facility] Comment on above: Ordered: 08/02/2025 SURESWAB(R) ADVANCED VAGINITIS PLUS, TMA SURESWAB(R) ADVANCED VAGINITIS PLUS, TMA Pathology and Cytology Routine Vaginal itching Vaginal discharge Ordered: 08/02/2025 [facility] Comment on above: Ordered: 08/02/2025 End: 01-04-2026 Thyroid profile includes TSH FT4 Thyroid profile includes TSH FT4 Lab Routine Bilateral leg paresthesia Gait disturbance Status post bariatric surgery 1 Occurrences starting 01/04/2025 until 01/04/2026 [facility] Comment on above: 1 Occurrences starti ng 01/04/2025 until 01/04/2026 End: 01-04-2026 Vitamin D 25 hydroxy Vitamin D 25 hydroxy Lab Routine Bilateral leg paresthesia Gait disturbance Status post bariatric surgery 1 Occurrences starting 01/04/2025 until 01/04/2026 [facility] Comment on above: 1 Occurrences starti ng 01/04/2025 until 01/04/2026 Immunizations Immunization Date Immunization Notes Care Provider Khushi pineda 09-24-2024 influenza, seasonal, injectable, preservative free Skye Cameron ACCOUNT CLASSIFICATION CLERK Work Phone: [facility] 09-24-2024 influenza virus vaccine, unspecified formulation David Lua DO Work Phone: [facility] 05-04-2024 tetanus toxoid, redu pily diphtheria toxoid, and acellular pertussis vaccine, adsorbed Skye Cameron ACCOUNT CLASSIFICATION CLERK Work Phone: [facility] 07-06-2014 tetanus toxoid, redu pily diphtheria toxoid, and acellular pertussis vaccine, adsorbed Skye Cameron ACCOUNT CLASSIFICATION CLERK Work Phone: [facility] 07-17-2006 tetanus toxoid, adsorbed Skye Cameron ACCOUNT CLASSIFICATION CLERK Work Phone: [facility] 09-26-1998 hepatitis B vaccine, pediatric or pediatric/adolescent dosage Skye Cameron ACCOUNT CLASSIFICATION CLERK Work Phone: [facility] 04-07-1998 hepatitis B vaccine, pediatric or pediatric/adolescent dosage Skye Cameron ACCOUNT CLASSIFICATION CLERK Work Phone: [facility] 02-06-1998 hepatitis B vaccine, pediatric or pediatric/adolescent dosage Skye Cameron ACCOUNT CLASSIFICATION CLERK Work Phone: [facility] 08-11-1995 diphtheria, tetanus toxoids and acellular pertussis vaccine, unspecified formulation Skye Cameron ACCOUNT CLASSIFICATION CLERK Work Phone: [facility] 08-11-1995 measles, mumps and rubella virus vaccine Skye Cameron ACCOUNT CLASSIFICATION CLERK Work Phone: [facility] 08-11-1995 poliovirus vaccine, unspecified formulation Skye Cameron ACCOUNT CLASSIFICATION CLERK Work Phone: [facility] 01-23-1993 diphtheria, tetanus toxoids and acellular pertussis vaccine, unspecified formulation Skye Cameron ACCOUNT CLASSIFICATION CLERK Work Phone: [facility] 01-23-1993 poliovirus vaccine, unspecified formulation Skye Cameron ACCOUNT CLASSIFICATION CLERK Work Phone: [facility] 10-05-1992 haemophilus influenz ae type b vaccine, conjugate unspecified formulation Skye Cameron ACCOUNT CLASSIFICATION CLERK Work Phone: [facility] 10-05-1992 measles, mumps and rubella virus vaccine Skye Cameron ACCOUNT CLASSIFICATION CLERK Work Phone: [facility] 04-25-1992 poliovirus vaccine, unspecified formulation Skye Cameron ACCOUNT CLASSIFICATION CLERK Work Phone: [facility] 03-01-1992 diphtheria, tetanus toxoids and acellular pertussis vaccine, unspecified formulation Skye Cameron ACCOUNT CLASSIFICATION CLERK Work Phone: [facility] 03-01-1992 haemophilus influenz ae type b vaccine, conjugate unspecified formulation Skye Cameron ACCOUNT CLASSIFICATION CLERK Work Phone: [facility] [facility] diphtheria, tetanus toxoids and acellular pertussis vaccine, unspecified formulation Skye Cameron ACCOUNT CLASSIFICATION CLERK Work Phone: [facility] 01-17-1992 haemophilus influenz ae type b vaccine, conjugate unspecified formulation Skye Cameron ACCOUNT CLASSIFICATION CLERK Work Phone: [facility] 01-17-1992 poliovirus vaccine, unspecified formulation Skye Cameron ACCOUNT CLASSIFICATION CLERK Work Phone: [facility] 1991 diphtheria, tetanus toxoids and acellular pertussis vaccine, unspecified formulation Skye Cameron ACCOUNT CLASSIFICATION CLERK Work Phone: [facility] 1991 haemophilus influenz ae type b vaccine, conjugate unspecified formulation Skye Cameron ACCOUNT CLASSIFICATION CLERK Work Phone: [facility] Payers Date Payer Category Payer Medicaid HMO [employer] [id number] 2024 Private Health Insurance [id number] [facility] [id number] 2024-Present [phone] [address] [address] [place] [address] [id number] 2024 Private Health Insurance [id number] 2023 Medicaid (Managed Care) [employer] [id number] 2023 [facility] Managed Care - Other [facility] [id number] 2023 Unknown [id number] 2023 Self-pay 2003 Medicaid [employer] [id number] 2003-Present [phone] [address] [place] [address] [id number] 1991 Unknown [id number] [id number]. 593 1991 Unknown [id number] 2.16.840.1.378551.3.579.2. 1259 1991 Unknown [id number] 2.16.840.1.036499.3.579.2. 1259 1991 Unknown [id number] 2.16.840.1.466204.3.579.2. 1259 1991 Unknown [id number] 2.16.840.1.579962.3.579.2. 1286 1991 Unknown [id number] 2.16.840.1.825413.3.579.2. 1286 1991 Unknown [id number] 2.16.840.1.297675.3.579.2. 1286 1991 Unknown [id number] 2.16.840.1.421364.3.579.2. 1286 1991 Unknown [id number] 2.16.840.1.761107.3.579.2. 1286 1991 Unknown [id number] 2.16.840.1.506929.3.579.2. 1286 1991 Unknown [id number] 2.16.840.1.174327.3.579.2. 1286 1991 Unknown [id number] 2.16.840.1.474454.3.579.2. 1286 1991 Unknown [id number] 2.16.840.1.966250.3.579.2. 1286 1959 Private Health Insurance [id number] 1959 Unknown [id number] Unknown [id number]. 531 Social History Date Type Detail Facility Start: 04-06-2023 End: 01-20-2025 Tobacco smoking status NHIS Never smoked tobacco [facility] Start: 06-09-2024 End: 08-02-2025 Alcoholic beverage intake Lifetime non-drinker (finding) [facility] Start: 03-08-2024 End: 01-20-2025 History of Social function [facility] Start: 03-08-2024 End: 01-20-2025 Tobacco use panel [facility] Start: 04-06-2023 Alcohol Comment Caffeine intake: non e [facility] Start: 1990 Sex assigned at Not on file [facility] Start: 08-22-2022 Tobacco use and exposure Smokeless tobacco non-user [facility] Start: 04-02-2024 End: 01-18-2025 Alcoholic beverage intake Current drinker of alcohol (finding) [facility] Adolescent depressio n screening assessment 0 [facility] Start: 07-29-2022 Alcohol Comment maybe twice a month [facility] Start: 1990 Sex assigned at Female [facility] Start: 05-30-2015 Sex Female (finding) [facility] Start: 06-25-2024 Gender identity Identifies as female gender (finding) [facility] Start: 02-22-2025 Alcoholic beverage intake Ex-drinker (finding) [facility] Clinical Notes 04-02-2024 to 08-02-2025 Skye Barnes NP - 08/02/2025 2:50 PM EDTTelephone Encounter - Jane English CNA - 02/28/2025 7:42 AM EDTTelephone Encounter - Jane English CNA - 02/28/2025 7:42 AM EDTPatient Instructions Note Date & Type Note Facility 08-02-2025 History of Present illness Narrative Reason for Appointment: Patient ID: Katelyn Ulloa is a 35 y.o. female who presents for Vaginitis/Bacterial Vaginosis Patient presents today for Acute Visit. MEDICATIONS Current Outpatient Medications Medication Instructions acarbose (PRECOSE) 25 mg, Oral, 3 times daily with meals busPIRone (BUSPAR) 10 mg, Oral, 2 times daily Continuous Glucose Commercial Engineer (Dexcom G7 Commercial Engineer) device Does not apply Continuous Glucose Commercial Engineer (FreeStyle Debi 2 [place]) device Does not apply Continuous Glucose Sensor (Dexcom G7 Sensor) misc Does not apply Continuous Glucose Sensor (FreeStyle Debi 2 Sensor) misc Does not apply estrogens (conjugated) (PREMARIN) 0.3 mg, Oral, Daily, Take daily for 21 days then do not take for 7 days. Multiple Vitamin (Daily-Cassie Multivitamin) tablet 1 tablet, Oral, Daily omeprazole (PRILOSEC) 20 mg, Daily ALLERGIES Allergies Allergen Reactions Nsaids Fentanyl Palpitations and Other Other Reaction(s): Tremor Hydromorphone Palpitations Other Reaction(s): Chest discomfort, Difficulty breathing Naproxen Palpitations Other Reaction(s): tahycardia Other Reaction(s): Palpitations - rapid PROBLEMS Active Ambulatory Problems Diagnosis Date Noted No Active Ambulatory Problems Resolved Ambulatory Problems Diagnosis Date Noted No Resolved Ambulatory Problems Past Medical History: Diagnosis Date Abnormal level of hormones in specimens from other organs, systems and tissues Anxiety Asthma (HCC) Bariatric surgery status Bipolar disorder (HCC) Chronic laryngopharyngitis Chronic sinusitis COVID-19 Depression Dyspareunia, female Fracture of jaw (CMS-HCC) Hormone imbalance Hypoglycemia, unspecified LPRD (laryngopharyngeal reflux disease) Obesity HISTORY PAST MEDICAL HISTORY SOCIAL HISTORY Past Medical History: Diagnosis Date Abnormal level of hormones in specimens from other organs, systems and tissues Anxiety Asthma (HCC) Bariatric surgery status Bipolar disorder (HCC) Chronic laryngopharyngitis Chronic sinusitis COVID-19 Depression Dyspareunia, female Fracture of jaw (CMS-HCC) Hormone imbalance Hypoglycemia, unspecified LPRD (laryngopharyngeal reflux disease) Obesity Social History Tobacco Use Smoking status: Never Smokeless tobacco: Not on file Substance Use Topics Alcohol use: Never Comment: Caffeine intake: none Drug use: Not on file FAMILY HISTORY Family History Problem Relation Name Age of Onset Mental illness Mother Hypertension Mother Irritable bowel syndrome Mother Hyperlipidemia Mother Hypertension Father Hyperlipidemia Father Bipolar disorder Sister Bipolar disorder Brother Diabetes Maternal Grandmother Diabetes Maternal Grandfather SURGICAL HISTORY Past Surgical History: Procedure Laterality Date BARIATRIC SURGERY CHOLECYSTECTOMY 08/06/2018 LAPAROSCOPY DIAGNOSTIC / BIOPSY / ASPIRATION / LYSIS 06/2015 with removal of cervical polyp and left filshie clip MANDIBLE SURGERY Jaw wired OTHER SURGICAL HISTORY 10/01/2013 [facility] PARTIAL HYSTERECTOMY 02/16/2021 with Cystoscopy ME TONSILLECTOMY & ADENOIDECTOMY AGE 13/> TUBAL LIGATION Bilateral 2013 REVIEW OF SYSTEMS Review of Systems: Review of Systems Genitourinary: Positive for vaginal discharge. OBJECTIVE Objective: Physical Exam Constitutional: Appearance: Normal appearance. She is well-developed. Cardiovascular: Rate and Rhythm: Normal rate and regular rhythm. Pulmonary: Effort: Pulmonary effort is normal. Breath sounds: Normal breath sounds. Abdominal: General: Abdomen is flat. Bowel sounds are normal. There is no distension. Palpations: Abdomen is soft. Tenderness: There is abdominal tenderness. There is no guarding or rebound. Comments: Tenderness with palpation overlying left lower quadrant of abdomen. Musculoskeletal: General: No swelling. Normal range of motion. Right lower leg: No edema. Left lower leg: No edema. Neurological: Mental Status: She is alert and oriented to person, place, and time. Skin: General: Skin is warm and dry. Psychiatric: Mood and Affect: Mood normal. Behavior: Behavior normal. Vitals and nursing note reviewed. Exam conducted with a ex assistant/program director present. Vitals: Estimated body mass index is 23.96 kg/m as calculated from the following: Height as of this encounter: 5' 5 . Weight as of this encounter: 144 lb. BP: 108/52 No LMP recorded. Patient has had a hysterectomy. ASSESSMENT & PLAN ICD-10-CM 1. Vaginal discharge N89.8 CHLAMYDIA TRACHOMATIS (GENITO/STI) Neisseria gonorrhea DNA probe, direct SURESWAB(R) ADVANCED VAGINITIS PLUS, TMA CANCELED: SURESWAB(R) ADVANCED VAGINITIS PLUS, TMA 2. Vaginal itching N89.8 CHLAMYDIA TRACHOMATIS (GENITO/STI) Neisseria gonorrhea DNA probe, direct SURESWAB(R) ADVANCED VAGINITIS PLUS, TMA CANCELED: SURESWAB(R) ADVANCED VAGINITIS PLUS, TMA Patient with complaints of yeast symptoms With vaginal discharge and itching. She would like cultures today and reports prescription with refills of Diflucan available. She also reports continued left low quadrant pelvic pain. She reports that she has had intermittent pelvic pain for over a year and had an order last year for an ultrasound but did not complete it. I have placed a new order for a pelvic ultrasound. She will schedule a follow up to review ultrasound and plan of care after diagnostic ultrasound. Documented by Skye Barnes NP on behalf of: Skye Barnes NP documented in this encounter [facility] 02-28-2025 Miscellaneous Notes Attempted to call patient, she verbalized understanding. ----- Message from David Lua DO sent at 02/25/2025 1:59 PM EDT ----- Reviewed. Please let Katelyn know that the x-ray of her lumbar spine does not suggest any significant degenerative disc issues but there mild arthritis in the lower back. The x-ray of her hips and pelvis was normal. Thank you ----- Message ----- From: Interface - Rad Results/Orders In 1 Sent: 02/25/2025 1:47 PM EDT To: David Lua DO documented in this encounter [facility] 02-28-2025 Telephone encounter Note Attempted to call patient, she verbalized understanding. ----- Message from David Lua DO sent at 02/25/2025 1:59 PM EDT ----- Reviewed. Please let Katelyn know that the x-ray of her lumbar spine does not suggest any significant degenerative disc issues but there mild arthritis in the lower back. The x-ray of her hips and pelvis was normal. Thank you ----- Message ----- From: Interface - Rad Results/Orders In 1 Sent: 02/25/2025 1:47 PM EDT To: David Lua DO [facility] 02-22-2025 Evaluation + Plan note Associated Problem(s): Restless leg syndrome We will start on ropinirole 0.25 mg 1 tablet nightly for restless leg symptoms. [facility] 02-22-2025 Evaluation + Plan note Associated Problem(s): Intermittent chest pain Symptoms to seem to be related to strong emotions. Discussed that strong emotions can cause physical symptoms. Reviewed workup performed in emergency department on 02/18 which came back essentially normal. Ordered echocardiogram as patient concerned about sad heart syndrome as she has shortness of breath and chest discomfort when she has strong emotional response [facility] 02-22-2025 Miscellaneous Notes Associated Problem(s): Restless leg syndrome We will start on ropinirole 0.25 mg 1 tablet nightly for restless leg symptoms. Associated Problem(s): Intermittent chest pain Symptoms to seem to be related to strong emotions. Discussed that strong emotions can cause physical symptoms. Reviewed workup performed in emergency department on 02/18 which came back essentially normal. Ordered echocardiogram as patient concerned about sad heart syndrome as she has shortness of breath and chest discomfort when she has strong emotional response Associated Problem(s): Paresthesias Awaiting EMG study to evaluate for potential causes for neuropathy. documented in this encounter [facility] 02-22-2025 Evaluation + Plan note Associated Problem(s): Paresthesias Awaiting EMG study to evaluate for potential causes for neuropathy. [facility] 02-22-2025 History of Present illness Narrative Images from the original note were not included. [facility] [address] [place] [address] [place] [address] Patient: Katelyn Ulloa Date of : 1990 Encounter Date: 02/22/2025 Subjective: Chief Complaint Chief Complaint Patient presents with Follow-up History of Present Illness Katelyn Ulloa is a 34 y.o. female, established patient, that presents to the office for follow-up for numbness and arthralgia. Patient was also seen in the emergency room on February 18, 2025 for chest pain. History provided by patient. Numbness The problem has been unchanged (She states that she has been taking acetaminophen and benadryl to help her sleep as her symptoms worse at nighttime. Has yet to get EMG scheduled). Associated symptoms include chest pain. Associated symptoms comments: Intermittently will get sensation if discomfort in lower extremities with wanting to move particularly at nighttime. Will disrupt her sleep . Chest Pain This is a new problem. Episode onset: She was seen in ED on 02/18/25 for chest pain and shortness of breath. She states that Friday when symptoms developed that she had been having strong emotional states. She states that different than feelings she experiences. Pain location: Anterior left chest. Associated symptoms comments: She states that with chest pain that she had discomfort going down left arm. . Review of Systems Review of Systems Cardiovascular: Positive for chest pain. Vital Signs BP 100/72 (BP Site: Left Arm, BP Postition: Sitting) Pulse 61 Temp 36.7 C (98.1 F) (Oral) Wt 69.7 kg (153 lb 9.6 oz) LMP 07/12/2019 SpO2 98% BMI 24.79 kg/m Physical Exam Physical Exam Vitals reviewed. Constitutional: General: She is not in acute distress. Appearance: She is not ill-appearing or toxic-appearing. Cardiovascular: Rate and Rhythm: Normal rate and regular rhythm. Heart sounds: No murmur heard. Pulmonary: Effort: Pulmonary effort is normal. No accessory muscle usage or respiratory distress. Breath sounds: Normal breath sounds. No decreased breath sounds, wheezing, rhonchi or rales. Abdominal: General: Bowel sounds are normal. There is no distension. Palpations: Abdomen is soft. Musculoskeletal: Right lower leg: No edema. Left lower leg: No edema. Past Medical, Family, Surgery and Social History Past Medical History: Diagnosis Date Asthma Chest pain Gallstones GERD (gastroesophageal reflux disease) H/O degenerative disc disease SOB (shortness of breath) Visual impairment Past Surgical History: Procedure Laterality Date CERVICAL POLYPECTOMY HYSTERECTOMY 2020 - Due to endometrosis LAPAROSCOPIC CHOLECYSTECTOMY N/A 08/06/2018 Performed by David Chaves DO at [facility] MANDIBLE SURGERY SLEEVE GASTROPLASTY July 2020 at [facility] SLEEVE GASTROPLASTY TONSILLECTOMY TUBAL LIGATION Family History Problem Relation Age of Onset Depression Mother Hyperlipidemia Mother Hypertension Mother Hyperlipidemia Father Alcohol abuse Father Schizophrenia Sister Bipolar disorder Brother Depression Maternal Grandmother Heart disease Maternal Grandmother Ovarian cancer Maternal Grandmother Diabetes Maternal Grandfather Social History Socioeconomic History Marital status: Single Spouse name: Not on file Number of children: Not on file Years of education: Not on file Highest education level: Not on file Occupational History Not on file Tobacco Use Smoking status: Never Smokeless tobacco: Never Vaping Use Vaping status: Never Used Substance and Sexual Activity Alcohol use: Not Currently Drug use: Not Currently Comment: has not used for several years; reports quit when 21 years old Sexual activity: Yes Partners: Male control/protection: Surgical Other Topics Concern Caffeine Use No Social History Narrative Not on file Social Drivers of Health Financial Resource Strain: Not on file Food Insecurity: No Food Insecurity (02/22/2025) Hunger Screening Food Insecurity - Worry: Never True Food Insecurity - Inability: Never True Transportation Needs: Not on file Physical Activity: Not on file Stress: Not on file Social Connections: Not on file Interpersonal Safety: Not on file Housing Instability: Not on file Allergies and Current Medications Allergies Allergen Reactions Nsaids (Non-Steroidal Anti-Inflammatory Drug) Fentanyl Tachycardia, Palpitations and Other (See Comments) Other Reaction(s): Tremor Hydromorphone Tachycardia and Palpitations Other Reaction(s): Chest discomfort, Difficulty breathing Naproxen Palpitations Other Reaction(s): tahycardia Other Reaction(s): Palpitations - rapid Current Outpatient Medications on File Prior to Visit Medication Sig DAILY-CASSIE, WITH FOLIC ACID, 400 mcg tablet Take 1 tablet by mouth in the morning. omeprazole (PriLOSEC) 20 mg capsule Take 1 capsule (20 mg total) by mouth every morning before breakfast. No current facility-administered medications on file prior to visit. Labs and Imaging Lab Results Component Value Date WBC 7.5 02/18/2025 HGB 13.1 02/18/2025 HCT 37.8 02/18/2025 PLT 282 02/18/2025 ALT 15 02/18/2025 AST 21 02/18/2025 K 3.7 02/18/2025 CL 106 02/18/2025 CREATININE 0.80 02/18/2025 BUN 14 02/18/2025 CO2 22 02/18/2025 TSH 0.91 01/12/2025 INR 1.0 02/18/2025 HGBA1C 4.9 04/15/2023 X-ray chest 1 view HISTORY: Chest pain COMPARISON: Chest x-ray 08/02/2021 FINDINGS: Portable AP upright view of the chest was performed. Heart size is normal. Lungs demonstrate no significant airspace consolidation or vascular congestion. There is no pneumothorax or pleural effusion. Surgical clips overlie the epigastric region and right upper quadrant. IMPRESSION: * No acute abnormality. Finalized by Deon Newman MD on 02/18/2025 7:00 PM Assessment/Plan: 1. Paresthesias 2. Restless leg syndrome - rOPINIRole (REQUIP) 0.25 mg tablet; Take 1 tablet (0.25 mg total) by mouth nightly. Dispense: 30 tablet; Refill: 1 3. Intermittent chest pain - Echo complete W/O contrast; Future Paresthesias Awaiting EMG study to evaluate for potential causes for neuropathy. Intermittent chest pain Symptoms to seem to be related to strong emotions. Discussed that strong emotions can cause physical symptoms. Reviewed workup performed in emergency department on 02/18 which came back essentially normal. Ordered echocardiogram as patient concerned about sad heart syndrome as she has shortness of breath and chest discomfort when she has strong emotional response Restless leg syndrome We will start on ropinirole 0.25 mg 1 tablet nightly for restless leg symptoms. Patient Instructions Schedule EMG test for symptoms in lower extremities Start on Ropinirole 0.25 mg 1 tablet nightly for restless leg symptoms Ordered echocardiogram for intermittent chest pain to evaluate for ejection fraction Follow-up: 6 weeks restless leg syndrome/EMG results - David Lua DO 02/22/25 3:11 PM documented in this encounter [facility] 02-22-2025 Instructions David Lua DO - 02/22/2025 10:00 AM EDT Schedule EMG test for symptoms in lower extremities Start on Ropinirole 0.25 mg 1 tablet nightly for restless leg symptoms Ordered echocardiogram for intermittent chest pain to evaluate for ejection fraction documented in this encounter [facility] 01-18-2025 Evaluation + Plan note Associated Problem(s): Paresthesias Reviewed with patient lab work results which were negative for any significant abnormality. Patient's symptoms are longstanding beginning approximately 15 years ago. She does have deficits to pinprick sensation in feet and lower extremity intermittently and asymmetrically. Ordered EMG study to evaluate. Also ordered x-ray of lumbar spine with flexion and extension and x-ray of hips bilaterally with pelvis to rule out structural causes for her symptoms. Depending on findings may consider neurologic referral for further evaluation. [facility] 01-18-2025 Miscellaneous Notes Associated Problem(s): Paresthesias Reviewed with patient lab work results which were negative for any significant abnormality. Patient's symptoms are longstanding beginning approximately 15 years ago. She does have deficits to pinprick sensation in feet and lower extremity intermittently and asymmetrically. Ordered EMG study to evaluate. Also ordered x-ray of lumbar spine with flexion and extension and x-ray of hips bilaterally with pelvis to rule out structural causes for her symptoms. Depending on findings may consider neurologic referral for further evaluation. documented in this encounter [facility] 01-18-2025 History of Present illness Narrative Images from the original note were not included. [facility] [address] [place] [address] [place] [address] Patient: Katelyn Ulloa Date of : 1990 Encounter Date: 01/18/2025 Subjective: Chief Complaint Chief Complaint Patient presents with Follow-up History of Present Illness Katelyn Ulloa is a 34 y.o. female, established patient, that presents to the office for follow up for lower extremity numbness Numbness Chronicity: 2 week Follow up. Completed lab work which came back withinb normal limits. Associated symptoms include arthralgias (Occasional discomfort in knees but denies joint pain in hips and ankles), myalgias and numbness. Associated symptoms comments: Continues to have discomfort in anterior thighs and posterior lower legs. She states that muscle pain that becomes a weak feeling. Denies any falls. Does experience tingling which can progress to pins and needles sensation in feet. When she puts pillow under knees she will feel less heaviness to legs and discomfort improves Denies any back pain. Discomfort has been present since of first child in 2008. She initially noticed a popping sensation in pubic area with walking Has been seeing a chiropractor since age 11 due to pain in legs and lower back. She states that no improvement with chiropractic treatment. . Review of Systems Review of Systems Musculoskeletal: Positive for arthralgias (Occasional discomfort in knees but denies joint pain in hips and ankles) and myalgias. Neurological: Positive for numbness. Vital Signs BP 122/77 (BP Site: Left Arm, BP Postition: Sitting) Pulse 62 Temp 36.8 C (98.3 F) (Oral) Ht 71.4 cm (2' 4.11 ) Wt 71.5 kg (157 lb 9.6 oz) LMP 07/12/2019 SpO2 99% BMI 140.23 kg/m Physical Exam Physical Exam Constitutional: General: She is not in acute distress. Cardiovascular: Rate and Rhythm: Normal rate and regular rhythm. Heart sounds: No murmur heard. Musculoskeletal: Lumbar back: No spasms or tenderness. Negative right straight leg raise test and negative left straight leg raise test. Comments: + standing flexion in left, + single leg stand weakness on right Feet: Right foot: Protective Sensation: 9 sites tested. 5 sites sensed. Left foot: Protective Sensation: 10 sites tested. 8 sites sensed. Comments: Decreased pin prick sensation over RIGHT foot at dorsum foot between 1st and 2nd toe, plantar 1st and 5th toe and over ball of right foot Decreased pinprick sensation anterior right thigh and noguera Decreased pinprick sensation over LEFT foot at dorsum foot between first and second toe and plantar first toe Decreased pinprick sensation over left anterior thigh Neurological: Motor: No weakness. Deep Tendon Reflexes: Reflex Scores: Patellar reflexes are 2+ on the right side and 2+ on the left side. Achilles reflexes are 2+ on the right side and 2+ on the left side. Comments: Patient is slow to respond with active flexion and extension of the knee bilateral lower extremity but strength 5/5 bilateral. Strength in Ram and plantar flexion at the ankle 5/5 bilaterally. Past Medical, Family, Surgery and Social History Past Medical History: Diagnosis Date Asthma Chest pain Gallstones GERD (gastroesophageal reflux disease) H/O degenerative disc disease SOB (shortness of breath) Visual impairment Past Surgical History: Procedure Laterality Date CERVICAL POLYPECTOMY HYSTERECTOMY 2020 - Due to endometrosis LAPAROSCOPIC CHOLECYSTECTOMY N/A 08/06/2018 Performed by David Chaves DO at [facility] MANDIBLE SURGERY SLEEVE GASTROPLASTY July 2020 at [facility] SLEEVE GASTROPLASTY TONSILLECTOMY TUBAL LIGATION Family History Problem Relation Age of Onset Depression Mother Hyperlipidemia Mother Hypertension Mother Hyperlipidemia Father Alcohol abuse Father Schizophrenia Sister Bipolar disorder Brother Depression Maternal Grandmother Heart disease Maternal Grandmother Ovarian cancer Maternal Grandmother Diabetes Maternal Grandfather Social History Socioeconomic History Marital status: Single Spouse name: Not on file Number of children: Not on file Years of education: Not on file Highest education level: Not on file Occupational History Not on file Tobacco Use Smoking status: Never Smokeless tobacco: Never Vaping Use Vaping status: Never Used Substance and Sexual Activity Alcohol use: Yes Comment: maybe twice a month Drug use: Not Currently Comment: has not used for several years; reports quit when 21 years old Sexual activity: Yes Partners: Male control/protection: Surgical Other Topics Concern Caffeine Use No Social History Narrative Not on file Social Drivers of Health Financial Resource Strain: Not on file Food Insecurity: No Food Insecurity (01/04/2025) Hunger Screening Food Insecurity - Worry: Never True Food Insecurity - Inability: Never True Transportation Needs: Not on file Physical Activity: Not on file Stress: Not on file Social Connections: Not on file Interpersonal Safety: Not on file Housing Instability: Not on file Allergies and Current Medications Allergies Allergen Reactions Nsaids (Non-Steroidal Anti-Inflammatory Drug) Fentanyl Tachycardia, Palpitations and Other (See Comments) Other Reaction(s): Tremor Hydromorphone Tachycardia and Palpitations Other Reaction(s): Chest discomfort, Difficulty breathing Naproxen Palpitations Other Reaction(s): tahycardia Other Reaction(s): Palpitations - rapid Current Outpatient Medications on File Prior to Visit Medication Sig DAILY-CASSIE, WITH FOLIC ACID, 400 mcg tablet Take 1 tablet by mouth in the morning. omeprazole (PriLOSEC) 20 mg capsule Take 1 capsule (20 mg total) by mouth every morning before breakfast. No current facility-administered medications on file prior to visit. Assessment/Plan: 1. Paresthesias - EMG; Future - X-ray spine lumbar complete including flexion and extension 6+ views; Future - X-ray hips bilateral with or without pelvis 2 views; Future Paresthesias Reviewed with patient lab work results which were negative for any significant abnormality. Patient's symptoms are longstanding beginning approximately 15 years ago. She does have deficits to pinprick sensation in feet and lower extremity intermittently and asymmetrically. Ordered EMG study to evaluate. Also ordered x-ray of lumbar spine with flexion and extension and x-ray of hips bilaterally with pelvis to rule out structural causes for her symptoms. Depending on findings may consider neurologic referral for further evaluation. There are no Patient Instructions on file for this visit. Follow up:4-6 weeks parathesias - David Lua DO 01/18/25 12:40 PM documented in this encounter [facility] 01-04-2025 History of Present illness Narrative Subjective Patient ID: Katelyn Ulloa is a 34 y.o. female, new patient, presented to clinic today to establish care. She has complaint of leg pain today. Previously had followed with [facility] Leg Pain Incident onset: onset : unspecified time over the last couple of years. Injury mechanism: Denies any specific injury. Per history has tarsal tunnel syndrome and has been treated for lumbar disc degeneration. Patient also status post bariatric surgery. Pain location: Has tenderness in anterior thighs and posterior lower leg but states that discomfort all over. The quality of the pain is described as aching. Associated symptoms include numbness and tingling (She states that laying or sitting too long will get pins and needles sensation). Exacerbated by: Sitting too long. No medication comments found. The following portions of the patient's history were reviewed and updated as appropriate: allergies, current medications, past family history, past medical history, past social history, past surgical history, problem list, and medication reconciliation was completed including current medication and post discharge medication. Review of Systems Constitutional: Positive for fatigue (Feeling of decreased energy but able to get up and be active due to responsibility to care for children). Respiratory: Negative for shortness of breath. Cardiovascular: Negative for chest pain and leg swelling. Musculoskeletal: Positive for arthralgias (At base of left thumbs with getting warm and swollen) and myalgias (Associated with soreness in legs and arms and hands). Due to sensivity to NSAIDs and opiates she only takes tylenol for pain Has hx if degenerative disc disease in lumbar spine and previously followed with specialist Skin: Positive for color change (She states that she will notice decreased color to skin of feet). Does notice hair coming out more than usual when she is combing it Neurological: Positive for tingling (She states that laying or sitting too long will get pins and needles sensation) and numbness. Has previously had EMG studies valles paresthesias Hematological: Does not bruise/bleed easily. Has swelling at base of neck near right jaw line that increases in size when ill. Denies any tenderness Psychiatric/Behavioral: Negative for dysphoric mood. Objective BP 112/70 (BP Site: Left Arm, BP Postition: Sitting) Pulse 61 Temp 36.7 C (98.1 F) (Oral) Ht 167.6 cm (5' 5.98 ) Wt 71.4 kg (157 lb 6.4 oz) LMP 07/12/2019 SpO2 99% BMI 25.42 kg/m Physical Exam Constitutional: General: She is not in acute distress. HENT: Head: Normocephalic. Cardiovascular: Rate and Rhythm: Normal rate and regular rhythm. Heart sounds: No murmur heard. Pulmonary: Effort: Pulmonary effort is normal. Breath sounds: Normal breath sounds. No wheezing or rhonchi. Musculoskeletal: Right lower leg: No edema. Left lower leg: No edema. Skin: Capillary Refill: Capillary refill takes less than 2 seconds. Comments: Patient with chronic scar tissue changes over the extensor surface of right hand and distal extensor surface of right forearm Neurological: Mental Status: She is alert. Cranial Nerves: No cranial nerve deficit. Comments: Patient with decreased sensation to touch on the plantar right foot compared to plantar left foot. Patient did not report change in sensation to light touch over anterior lower extremity bilaterally Patient with difficulty performing heel to toe walk with several balance checks over a distance of 8 ft. Patient also had multiple balance checks with single leg stand to the left and right Strength testing of Dorsal and plantar flexion and great toe extension bilaterally was diminished Tuning fork vibration test not performed Assessment/Plan Katelyn was seen today for establish care. Diagnoses and all orders for this visit: Bilateral leg paresthesia - CBC auto differential; Future - Comprehensive metabolic panel; Future - Thyroid profile includes TSH FT4; Future - Vitamin D 25 hydroxy; Future - Vitamin B12; Future - Folate; Future Gait disturbance - CBC auto differential; Future - Comprehensive metabolic panel; Future - Thyroid profile includes TSH FT4; Future - Vitamin D 25 hydroxy; Future - Vitamin B12; Future - Folate; Future Status post bariatric surgery - CBC auto differential; Future - Comprehensive metabolic panel; Future - Thyroid profile includes TSH FT4; Future - Vitamin D 25 hydroxy; Future - Vitamin B12; Future - Folate; Future Patient presented to clinic today with complaint of paresthesia of the lower extremity and gait disturbances. She did have a abnormal neurologic exam today in the office. Given that patient has complex history with many potential causes for paresthesia and gait disturbances including status post bariatric surgery and history of lumbar degenerative disc disease I began the workup today with all lab work to rule out metabolic causes for paresthesia. I discussed with the patient that depending on the results of the lab work further testing or evaluation may be necessary. I discussed with the patient since having balance issue she should avoid activities that will further impaired balance such as alcohol consumption. Follow-up 1 to 2 weeks - David Lua DO 01/04/25 5:04 PM documented [facility] this encounter [facility] 01-04-2025 Instructions David Lua DO - 01/04/2025 10:30 AM EDT Avoid activities that will impair balance. Ordered labs to evaluate. The following attachments cannot be sent through Care Everywhere.Paresthesia Discharge Instructions (French)documented in this encounter [facility] 12-23-2024 History of Present illness Narrative Reason for Appointment: Patient ID: Katelyn Ulloa is a 34 y.o. female who presents for Well Women Visit Patient presents today for Annual Exam. MEDICATIONS Current Outpatient Medications Medication Instructions fluconazole (Diflucan) 150 MG tablet TAKE 1 TABLET (150 MG) BY MOUTH 1 (ONE) TIME FOR 1 DOSE THIS IS A 1 TIME DOSE ALLERGIES Allergies Allergen Reactions Nsaids Fentanyl Palpitations Other Reaction(s): Tremor Hydromorphone Palpitations Other Reaction(s): Chest discomfort, Difficulty breathing Naproxen Palpitations Other Reaction(s): tahycardia Other Reaction(s): Palpitations - rapid PROBLEMS Active Ambulatory Problems Diagnosis Date Noted No Active Ambulatory Problems Resolved Ambulatory Problems Diagnosis Date Noted No Resolved Ambulatory Problems Past Medical History: Diagnosis Date Asthma ([facility]) Bipolar disorder ([facility]) Chronic laryngopharyngitis Chronic sinusitis COVID-19 Depression ([facility]) Dyspareunia, female Fracture of jaw ([facility]) Hormone imbalance LPRD (laryngopharyngeal reflux disease) HISTORY PAST MEDICAL HISTORY SOCIAL HISTORY Past Medical History: Diagnosis Date Asthma ([facility]) Bipolar disorder ([facility]) Chronic laryngopharyngitis Chronic sinusitis COVID-19 Depression ([facility]) Dyspareunia, female Fracture of jaw ([facility]) Hormone imbalance LPRD (laryngopharyngeal reflux disease) Social History Tobacco Use Smoking status: Never Smokeless tobacco: Not on file Substance Use Topics Alcohol use: Never Comment: Caffeine intake: none Drug use: Not on file FAMILY HISTORY Family History Problem Relation Name Age of Onset Mental illness Mother Hypertension Mother Irritable bowel syndrome Mother Hyperlipidemia Mother Hypertension Father Hyperlipidemia Father Bipolar disorder Sister Bipolar disorder Brother Diabetes Maternal Grandmother Diabetes Maternal Grandfather SURGICAL HISTORY Past Surgical History: Procedure Laterality Date CHOLECYSTECTOMY 08/06/2018 LAPAROSCOPY DIAGNOSTIC / BIOPSY / ASPIRATION / LYSIS 06/2015 with removal of cervical polyp and left filshie clip MANDIBLE SURGERY Jaw wired OTHER SURGICAL HISTORY 10/01/2013 [facility] ME TONSILLECTOMY & ADENOIDECTOMY AGE 13/> TOTAL ABDOMINAL HYSTERECTOMY W/ BILATERAL SALPINGOOPHORECTOMY 02/16/2021 with Cystoscopy TUBAL LIGATION Bilateral 2013 REVIEW OF SYSTEMS Review of Systems: Review of Systems Constitutional: Negative. HENT: Negative. Eyes: Negative. Respiratory: Negative. Cardiovascular: Negative. Gastrointestinal: Negative. Genitourinary: Negative. Musculoskeletal: Negative. Skin: Negative. Neurological: Negative. All other systems reviewed and are negative. Hematological: Negative. Endocrine: Negative. Allergic/Immunologic: Negative. OBJECTIVE Objective: Physical Exam Constitutional: Appearance: Normal appearance. She is well-developed. Genitourinary: Vulva normal. Right Adnexa: not tender and no mass present. Left Adnexa: not tender and no mass present. Cervix is absent. Uterus is absent. Breasts: Breasts are soft. Right: Normal. Left: Normal. HENT: Head: Normocephalic. Nose: Nose normal. Mouth/Throat: Mouth: Mucous membranes are moist. Cardiovascular: Rate and Rhythm: Normal rate and regular rhythm. Pulmonary: Effort: Pulmonary effort is normal. Breath sounds: Normal breath sounds. Abdominal: General: Bowel sounds are normal. There is no distension. Palpations: Abdomen is soft. Tenderness: There is no abdominal tenderness. There is no guarding or rebound. Musculoskeletal: General: No swelling. Normal range of motion. Cervical back: Normal range of motion. Right lower leg: No edema. Left lower leg: No edema. Neurological: General: No focal deficit present. Mental Status: She is alert and oriented to person, place, and time. Skin: General: Skin is warm and dry. Psychiatric: Mood and Affect: Mood normal. Behavior: Behavior normal. Vitals and nursing note reviewed. Exam conducted with a ex assistant/program director present. Vitals: Estimated body mass index is 24.4 kg/m as calculated from the following: Height as of 10/17/22: 5' 7 . Weight as of this encounter: 155 lb 12.8 oz. BP: 106/68 No LMP recorded. Patient has had a hysterectomy. ASSESSMENT & PLAN ICD-10-CM 1. Well woman exam with routine gynecological exam Z01.419 Pap Smear HPV DNA probe, amplified Annual Exam: Patient presents today for an annual exam. Patient states she is doing well and has no complaints. Pap was obtained without difficulty. Orders Placed This Encounter Procedures HPV DNA probe, amplified Follow Up: Patient is to return in one year for annual unless needed otherwise. Documented by Jessa Gallardo LPN on behalf of: JI Whaley documented in this encounter [facility] 04-02-2024 History of Present illness Narrative The patient is here today [...] in stable condition documented in this encounter [facility] Evaluation note Diagnosis Abnormal level of hormones in specimens from other organs, systems and tissues- Primary Hypoglycemia, unspecified Bariatric surgery status Abnormal level of hormones in specimens from oth org/tiss Status post bariatric surgery Bariatric surgery status [facility] Diagnosis Hypoglycemia, unspecified- Primary Status post bariatric surgery Bariatric surgery status Abnormal level of hormones in specimens from other organs, systems and tissues [facility] Diagnosis Hypoglycemia, unspecified- Primary Bariatric surgery status Abnormal level of hormones in specimens from oth org/tiss [facility] Diagnosis Well woman exam with routine gynecological exam Routine gynecological examination [facility] Bilateral leg paresthesia- Primary Disturbance of skin sensation Gait disturbance Abnormality of gait Status post bariatric surgery Bariatric surgery status [facility] Diagnosis Paresthesias- Primary Disturbance of skin sensation [facility] Diagnosis Paresthesias- Primary Disturbance of skin sensation Paresthesias- Primary Disturbance of skin sensation Restless leg syndrome Restless legs syndrome (RLS) Intermittent chest pain [facility] Diagnosis Vaginal discharge- Primary Leukorrhea, not specified as infective Vaginal itching Pruritus of genital organs Pelvic pain in female Unspecified symptom associated with female genital organs documented in this encounter [facility]Not [facility] filedocumented in this encounterProMedica Health SystemInstructionsNot on filedocumented in this encounterProMediSt. [facility] SystemInstructionsNot on filedocumented in this encounterProMediSt. [facility] SystemInstructionsNot on filedocumented in this encounterProAult[facility] Summary Purpose Family History No Family [...] and content) DATE CREATED AUTHOR 01/25/2023 [facility] DATE CREATED AUTHOR AUTHOR'S ORGANIZ ATION 10/26/2023 [facility] DATE CREATED AUTHOR AUTHOR'S ORGANIZ ATION 05/19/2024 [place] DATE CREATED AUTHOR AUTHOR'S ORGANIZ ATION 12/25/2024 [facility] EP[facility] DATE CREATED AUTHOR AUTHOR'S ORGANIZ ATION 02/23/2025 [facility] DATE CREATED AUTHOR AUTHOR'S ORGANIZ ATION 04/18/2025 [facility] Reason for Visit (unrecogniz ed section and content) Reason Comments Outpatient Infusion Cortisol Stim Reason Comments Well Women Visit Reason Comments Establish Care Reason Comments Follow-up Reason Onset Date Comments Results 02/28/2025 Reason Comments Vaginitis/Bacterial Vaginosis Care Teams (unrecognized sec tion and content) Mixer And Blender Relationship Specialty Start Date End Date No Pcp, [place] [address] PCP - General Family Medicine 02/12/24 [employer] Relationship Specialty Start Date End Date No Pcp, [place] [address] PCP - General Family Medicine 02/12/24 [employer]ender Relationship Specialty Start Date End Date No Pcp, [place] [address] PCP - General Family Medicine 02/12/24 [employer] And [employer]ender Relationship Specialty Start Date End Date David Lua DO [address] [place] [address] PCP - General Family Medicine 01/04/25 [employer]ender Relationship Specialty Start Date End Date David Lua DO [address] [place] [address] PCP - [facility] Medicine 01/04/25 [employer]er And Blender Relationship Specialty Start Date End Date Dvaid Lua DO [address] [place] [address] PCP - [facility] Medicine 01/04/25 Mixer And Blender Relationship Specialty Start Date End Date David Lua DO [address] [facility] [address] [place] [address] PCP - General Family Medicine 01/04/25 FOR RECORDS PERTAINING TO PATIENTS WHO ARE [...] BE BASED ON THE PRIMARY CLINICAL RECORDS. [facility]. provides no warranty or guarantee of the accuracy or completeness of information in this document.
== END 2025-08-04 10:43 | disposition home or self-care (01) ==
LOC: US 10:42
PROVIDERS: PCP Physician Assistant; Visit Provider Nurse Practitioner Family
DX: R10.30 Lower abdominal pain, unspecified (principal)
CPT/HCPCS: 76830; 76856